=== PATIENT | female | born 1975 | race Caucasian/White ===

== ENCOUNTER → 2019-11-06 14:34 | Outpatient (REF) | payer OTHER, SELFPAY | LOC: ANHLAB 14:34 | PROVIDERS: PCP Nurse Practitioner Family; Visit Provider Nurse Practitioner | DX: D49.2 Neoplasm of unspecified behavior of bone, soft tissue, and skin (principal) | CPT/HCPCS: 88305 ==

== ENCOUNTER 2019-12-07 11:08 | Outpatient (CLI) | payer OTHER, SELFPAY ==
--- NOTE | ~2019-12-07 | MMUS_ITS ---
EXAMINATION: MM diagnostic mammo unilat LT, US breast LT complete HISTORY: Follow-up left breast mass TECHNIQUE: Additional 3-D tomosynthesis images of the left breast were performed and synthetic 2-D im ages were generated. CAD analysis was submitted and interpreted. High resolution left breast ultrasou nd was performed. COMPARISON: Comparison to multiple prior studies sequentially, with oldest reviewed study dated 01/11. FINDINGS: MAMMOGRAPHIC FINDINGS: The breasts are heterogenously dense, which may obscure small masses. There are multiple masses in th e left breast which are obscured by fibroglandular tissue. No suspicious calcifications or architectu ral distortion. ULTRASOUND: Multiple cysts of the left breast, largest at 1:00, 5 cm from the nipple measuring 1 cm and 2:00 near the nipple measuring 1.7 cm greatest dimension. No solid or identified to suggest malignancy. IMPRESSION: 1. Multiple left breast cysts corresponding to masses seen on mammogram. No evidence for malignancy. 2. Routine yearly screening mammogram and regular clinical breast examination are recommended. BI-RADS Category 2: Benign finding(s). Reviewed, dictated and finalized at location A. IMPRESSION: 1. Multiple left breast cysts corresponding to masses seen on mammogram. No tanja dence for malignancy. 2. Routine yearly screening mammogram and regular clinical breast examination a re recommended. BI-RADS Category 2: Benign finding(s).
== END 2019-12-07 11:09 | disposition home or self-care (01) ==
LOC: ANHIMG 11:12
PROVIDERS: PCP Nurse Practitioner Family; Visit Provider Obstetrics & Gynecology
DX: N60.02 Solitary cyst of left breast (principal)
CPT/HCPCS: 76641; 77065

== ENCOUNTER 2020-04-22 06:27 | Outpatient (CLI) | payer OTHER, SELFPAY ==
[2020-04-22 07:42] LABS: Hematocrit 42.9 % (37.0-47.0); Hemoglobin 14.5 g/dL (12.0-15.0); Mean Corpuscular HGB Conc 33.8 g/dl (32-36); Mean Corpuscular Hemoglobin 30.1 pg (26-34); Mean Platelet Volume 9.4 fl (7.4-10.4); Platelet Count Result 240 k/mm3 (150-375); Red Blood Count 4.82 M/mm3 (4.2-5.4); Red Cell Distribution Width 12.5 % (11.5-14.5); White Blood Count 5.5 K/mm3 (4.5-10.0)
[2020-04-22 07:53] LABS: Alanine Aminotransferase 17 U/L (4-35); Albumin Level 4.3 g/dL (3.5-5.1); Alkaline Phosphatase 59 U/L (38-126); Anion Gap 10.2 mmol/L (7-16); Aspartate Amino Transferase 21 U/L (14-36); Bilirubin,Total 0.5 mg/dL (0.2-1.3); Blood Urea Nitrogen 11 mg/dL (7-17); Calcium 8.7 mg/dL (8.4-10.2); Carbon Dioxide 27 mmol/L (22-30); Chloride 105 mmol/L (98-107); Cholesterol 162 mg/dL (0-200); Estimated Glomerular Filt Rate > 60; Glucose 90 mg/dL (65-105); HDL Direct 66 mg/dL; Potassium 4.2 mmol/L (3.4-5.0); Sodium 138 mmol/L (137-145); Triglycerides 103 mg/dL (<150)
[2020-04-22 08:04] LABS: LDL Cholesterol Direct 73 mg/dL
[2020-04-22 08:21] LABS: Vitamin D 25 Hydroxy 50.5 ng/mL
[2020-04-22 09:05] LABS: Folic Acid > 20.0 ng/mL (2.76->20)
== END 2020-04-22 06:28 | disposition home or self-care (01) ==
PROVIDERS: PCP Nurse Practitioner Family; Visit Provider Nurse Practitioner Family
DX: Z13.0 Encounter for screening for diseases of the blood and blood-forming organs and certain disorders involving the immune mechanism (principal); Z13.1 Encounter for screening for diabetes mellitus; Z13.29 Encounter for screening for other suspected endocrine disorder; Z13.220 Encounter for screening for lipoid disorders; Z13.9 Encounter for screening, unspecified
CPT/HCPCS: 36415; 80053; 80061; 82306; 82607; 82746; 84443; 85027

== ENCOUNTER 2020-07-09 08:13 | Emergency (ER) | payer OTHER, SELFPAY ==
--- NOTE | ~2020-07-09 | XR_ITS ---
EXAMINATION: XR chest 1V portable DATE: 07/09/2020 09:19 INDICATION: Cough. COVID 19 TECHNIQUE: frontal view of the chest was obtained. COMPARISON: Chest radiograph dated 11/17/2011 FINDINGS: The lungs remain clear with no focal airspace opacities, pulmonary edema, pleural effusion or pneumot horax. The cardiomediastinal silhouette is normal. Visualized bones and soft tissues are unremarkable . IMPRESSION: 1. No acute cardiopulmonary disease. Reviewed, dictated and finalized at location A.
--- NOTE | 2020-07-09 08:25 | ED.URI ---
HPI - URI/Sore Throat General Chief Complaint: Unspecified Stated Complaint: cough, covid + Time Seen by Provider: 07/09/20 08:22 History of Present Illness HPI Narrative: She was diagnosed with COVID-19 a few days ago and she is not feeling well. She has a severe cough, which is causing her to have pain in her chest. She has tried multiple OTC medications without relief. Only SOB when coughing. Previously had a fever, which has resolved. Poor appetite, no nausea. Related Data Allergies Allergy/AdvReac Type Severity Reaction Status Date / Time No Known Allergies Allergy Verified 07/09/20 08:44 Review of Systems Review of Systems: All systems reviewed & are unremarkable except as noted in HPI and below Constitutional: Constitutional: Reports fever(s) ENT: Denies sore throat Cardiovascular: Cardiovascular: Reports chest pain Respiratory: Respiratory: Reports cough and Reports dyspnea Gastrointestinal: Gastrointestinal: Denies abdominal pain and Denies nausea Musculoskeletal: Musculoskeletal: Reports myalgias Neurologic: Denies numbness and Denies weakness PMFSH Past Medical History Medical History Basal cell carcinoma of skin left collarbone Endometriosis determined by laparoscopy Melanoma in situ September 2017 Overweight (BMI 25.0-29.9) Surgical History Surgical History H/O bilateral salpingectomy History of cholecystectomy History of laparoscopy Family History Family History Father Heart disease Grandparent Cancer Social History Social History Smoking status: Never smoker Alcohol intake: current Gender identity (if verbalized by the patient): Female Exam Const: General: healthy appearing, no acute distress and alert Nutritional Appearance: well nourished Orientation/consciousness: patient oriented x3 HENMT: Head: normal to inspection Resp: Effort & Inspection: normal respiratory effort Skin: General skin exam: normal color Neuro: General: patient oriented x3 and moves all extremities Speech: normal speech Gait exam (Neuro): Normal gait present Extrem: General: normal to inspection Course Vital Signs Vital signs: Vital Signs Temperature 36.8 C 07/09/20 08:35 Pulse Rate 108 H 07/09/20 08:35 Respiratory Rate 20 07/09/20 08:35 Blood Pressure 101/68 07/09/20 08:35 Pulse Oximetry 99 07/09/20 08:35 Temperature 36.8 C 07/09/20 08:35 Pulse Rate 102 H 07/09/20 10:04 Respiratory Rate 20 07/09/20 10:04 Blood Pressure 98/57 L 07/09/20 10:04 Pulse Oximetry 100 07/09/20 10:04 MDM - URI/Sore Throat MDM Narrative Medical decision making narrative: She appears well with normal VS and known COVID. I will try to provide symptomatic relief. Discharge Plan Discharge Clinical Impression: COVID-19 Patient Disposition: Home, Self-Care Condition: Stable Instructions: COVID-19 (Coronavirus Disease 2019) (ED) Prescriptions: New albuterol sulfate 90 mcg/actuation HFA aerosol inhaler 2 puff inhalation QID PRN (Reason: shortness of breath or wheezing) Qty: 8.5 RF: 0 acetaminophen-codeine 120-12 mg/5 mL solution 15 ml PO Q4H PRN (Reason: cough) Qty: 473 RF: 0 Follow-up/Referrals: Rigoberto,Joann Pascal, [employer] [Primary Care Provider] -
[2020-07-09 08:35] VITALS: BP 101/68; PULSE 108; RESP 20; TEMP 36.8; O2SAT 99
[2020-07-09] MEDS: ALBUTEROL SULFATE (*SP) AEROSOL 1 PUFF 4 PUFF INHALATION (08:36)
--- NOTE | 2020-07-09 08:47 | PC.NURSE ---
RT at bedside for MDI instruct and dose.
[2020-07-09] MEDS: ACETAMINOPHEN/CODEINE ELIXIR (*CRX) 120-12 MG/5 ML UDC PO (08:53)
[2020-07-09 09:04] VITALS: O2SAT 100
[2020-07-09 10:04] VITALS: BP 98/57; PULSE 102; RESP 20; O2SAT 100
== END 2020-07-09 10:00 | disposition home or self-care (01) ==
PROVIDERS: Emergency Provider Emergency Medicine; PCP Nurse Practitioner Family
DX: U07.1 COVID-19 (principal)
CPT/HCPCS: 71045; 99283; A9270

== ENCOUNTER 2020-07-14 10:02 | Emergency (ER) | payer OTHER, SELFPAY ==
--- NOTE | ~2020-07-14 | XR_ITS ---
EXAMINATION: XR chest 1V portable DATE: 07/14/2020 12:42 INDICATION: Shortness of breath, cough and COVID+ TECHNIQUE: frontal view of the chest was obtained. COMPARISON: Chest radiograph dated 07/09/2020 FINDINGS: New mild opacities in the right lower and left mid to lower lung zones. No pleural effusion or pneumo thorax. The cardiomediastinal silhouette is normal. Visualized bones and soft tissues are unremarkabl e. IMPRESSION: 1. Mild opacities in the right lower and left mid to lower lung zones consistent with pneumonia with differential including mild pulmonary edema. Reviewed, dictated and finalized at location A. IMPRESSION: 1. Mild opacities in the right lower and left mid to lower lung zones consisten t with pneumonia with differential including mild pulmonary edema.
[2020-07-14 10:13] VITALS: BP 100/62; PULSE 92; RESP 16; TEMP 36.3; O2SAT 98
--- NOTE | 2020-07-14 12:21 | ED.GENADULT ---
HPI - General Adult General Chief complaint: Unspecified Stated complaint: covid Time Seen by Provider: 07/14/20 12:17 Source: patient Mode of arrival: ambulatory Limitations: no limitations History of Present Illness HPI narrative: 45 years old white female presents with dry cough, body aches, not eating enough, trouble sleeping since been diagnosed of Covid nineteen 1 week ago. Patient denying shortness of breath. Patient is concerned about dehydration. Related Data Allergies Allergy/AdvReac Type Severity Reaction Status Date / Time No Known Allergies Allergy Verified 07/14/20 10:15 Review of Systems Review of Systems: Narrative: CONSTITUTIONAL: Denies fever, chills, or sweats. EYES: Denies visual changes, redness, or discharge. ENT: Denies rhinorrhea, congestion, sore throat, or otalgia. CARDIOVASCULAR: Denies chest pain, palpitations, or edema. RESPIRATORY: Denies cough or dyspnea. GASTROINTESTINAL: Denies abdominal pain, nausea, vomiting, or diarrhea. GENITOURINARY: Denies dysuria or hematuria. SKIN: Denies rash or itching. MUSCULOSKELETAL: Denies back pain, joint pain, or myalgia. NEUROLOGIC: Denies headache, numbness, or weakness. PSYCHIATRIC: Denies anxiety or depression. PMFSH Past Medical History Medical History Basal cell carcinoma of skin left collarbone Endometriosis determined by laparoscopy Melanoma in situ September 2017 Overweight (BMI 25.0-29.9) Surgical History Surgical History H/O bilateral salpingectomy History of cholecystectomy History of laparoscopy Family History Family History Father Heart disease Grandparent Cancer Social History Social History Smoking status: Never smoker Alcohol intake: current Gender identity (if verbalized by the patient): Female Exam Narrative: Exam Narrative: General appearance: Well-developed, well-nourished Skin: Normal color Head: Normocephalic, nontraumatic Eyes: Clear conjunctiva Chest and respiratory: Airway patent, no respiratory distress, no accessory muscle use Heart: Regular rate/rhythm Abdomen: Soft, nontender, no organomegaly, quiet bowel sounds Neurologic: Alert and oriented ?3, Course Course Emergency Course: Improving Vital Signs Vital signs: Vital Signs Temperature 36.3 C L 07/14/20 10:13 Pulse Rate 92 07/14/20 10:13 Respiratory Rate 16 07/14/20 10:13 Blood Pressure 100/62 07/14/20 10:13 Pulse Oximetry 98 07/14/20 10:13 Temperature 36.3 C L 07/14/20 10:13 Pulse Rate 92 07/14/20 10:13 Respiratory Rate 16 07/14/20 10:13 Blood Pressure 100/62 07/14/20 10:13 Pulse Oximetry 98 07/14/20 10:13 Medical Decision Making MDM Narrative Medical decision making narrative: Patient presented with Covid symptoms Blood work-up showed leukopenia and hypokalemia consistent with Covid infection, Chest x-ray showed small bilateral basal infiltration which is high likely secondary to Covid infection. Patient oxygen saturation on room air is 98. Patient received 1 L of normal saline, Toradol 30 mg IV, Tylenol 650 orally. Patient feeling better, the plan to discharge, stay isolated, Start Z-Francis for possible superimposed bacterial infection. Differential Diagnosis Differential Diagnosis: Covid related symptoms, Covid pneumonia, electrolyte imbalance Vital Signs Vital Signs: Vital Signs Temperature 36.3 C L 07/14/20 10:13 Pulse Rate 92 07/14/20 10:13 Respiratory Rate 16 07/14/20 10:13 Blood Pressure 100/62 10/2
[2020-07-14] MEDS: SODIUM CHLORIDE 0.9% IV 1,000 ML 999 ML IV CONT (12:47)
[2020-07-14] MEDS: KETOROLAC 30 MG/ML VIAL (*BKC) IV PUSH (12:47)
[2020-07-14 13:01] LABS: Basophils Percent Auto 0.2 % (0.2-1.2); Eosinophils Percent Auto 0.5 % (0-4.4); Hematocrit 38.3 % (37.0-47.0); Hemoglobin 13.3 g/dL (12.0-15.0); Immature Granulocyte Absolute 0.02 K/mm3 (0.00-0.031); Immature Granulocyte Percent A 0.5 % (0-0.5); Lymphocytes Absolute Auto 1.07 K/mm3 (0.9-3.2); Lymphocytes Percent Auto 25.4 % (18.3-44.2); Mean Corpuscular HGB Conc 34.7 g/dl (32-36); Mean Corpuscular Hemoglobin 30.5 pg (26-34); Mean Corpuscular Volume 87.8 fl (80-100); Mean Platelet Volume 9.7 fl (7.4-10.4); Monocytes Absolute Auto 0.4 K/mm3 (0.1-0.6); Monocytes Percent Auto 8.8 % (2.6-8.5); Neutrophils Absolute Auto 2.7 K/mm3 (1.3-6.7); Neutrophils Percent Auto 64.6 % (45.5-73.1); Platelet Count Result 201 k/mm3 (150-375); Red Blood Count 4.36 M/mm3 (4.2-5.4); White Blood Count 4.2 K/mm3 (4.5-10.0)
[2020-07-14 13:13] LABS: Alanine Aminotransferase 30 U/L (4-35); Albumin Level 3.5 g/dL (3.5-5.1); Alkaline Phosphatase 109 U/L (38-126); Anion Gap 4 mmol/L (8-16); Aspartate Amino Transferase 43 U/L (14-36); Bilirubin,Total 0.6 mg/dL (0.2-1.3); Blood Urea Nitrogen 5 mg/dL (7-17); Calcium 8.4 mg/dL (8.4-10.2); Carbon Dioxide 34 mmol/L (22-30); Chloride 100 mmol/L (98-107); Estimated CRCL calculation 114 ml/min; Estimated Glomerular Filt Rate > 60; Glucose 92 mg/dL (65-105); Potassium 3.2 mmol/L (3.4-5.0); Sodium 138 mmol/L (137-145)
[2020-07-14 14:23] VITALS: BP 106/50; PULSE 73; RESP 20; O2SAT 100
== END 2020-07-14 14:25 | disposition home or self-care (01) ==
PROVIDERS: Emergency Provider Emergency Medicine; PCP Nurse Practitioner Family
DX: U07.1 COVID-19 (principal); E87.6 Hypokalemia; N80.9 Endometriosis, unspecified; Z85.820 Personal history of malignant melanoma of skin; E66.3 Overweight; Z68.25 Body mass index [BMI] 25.0-25.9, adult
CPT/HCPCS: 36415; 71045; 80053; 85025; 96361; 96374; 99284; J1885; J7030

== ENCOUNTER 2020-08-06 10:04 | Outpatient (CLI) | payer OTHER, SELFPAY ==
--- NOTE | ~2020-08-06 | XR_ITS ---
EXAMINATION: XR chest 2V DATE: 08/06/2020 10:56 INDICATION: COVID-19 pneumonia follow-up. TECHNIQUE: Frontal and lateral views of the chest were obtained. COMPARISON: Chest single view 07/14/2020 FINDINGS: The chest demonstrates clear lungs without pneumonia, pleural effusion, or pneumothorax. Th e heart size is normal. IMPRESSION: 1. No acute cardiopulmonary disease. Reviewed, dictated and finalized at location A. 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
== END 2020-08-06 10:05 | disposition home or self-care (01) ==
PROVIDERS: PCP Nurse Practitioner Family; Visit Provider Nurse Practitioner Family
DX: J18.9 Pneumonia, unspecified organism (principal)
CPT/HCPCS: 71046

== ENCOUNTER 2020-12-02 12:15 | Outpatient (CLI) | payer OTHER, SELFPAY | END 2020-12-02 12:16 | disposition home or self-care (01) | PROVIDERS: PCP Nurse Practitioner Family; Visit Provider Obstetrics & Gynecology | DX: N80.9 Endometriosis, unspecified (principal) | CPT/HCPCS: 36415; 86850; 86900; 86901 ==

== ENCOUNTER → 2020-12-07 00:25 | Outpatient (CLI) | payer OTHER, SELFPAY ==
[2020-12-07 19:13] LABS: SARS-CoV-2 RNA PCR Negative
== END ==
PROVIDERS: PCP Nurse Practitioner Family; Visit Provider Obstetrics & Gynecology
DX: Z01.812 Encounter for preprocedural laboratory examination (principal); Z20.822 Contact with and (suspected) exposure to COVID-19
CPT/HCPCS: C9803; U0003; U0005

== ENCOUNTER 2020-12-11 02:34 | Day surgery (SDC) | payer OTHER, SELFPAY ==
[2020-12-02 10:33] VITALS: BMI 26.3
[2020-12-11] VITALS (12 sets, daily range): BP systolic 103–126; BP diastolic 55–78; PULSE 60–82; RESP 14–20; TEMP 36.9; O2SAT 97–100; BMI 25.6
[2020-12-11] MEDS: KETOROLAC 15 MG/ML VIAL (*BKC) IV PUSH (10:30)
[2020-12-11] MEDS: ACETAMINOPHEN 500 MG TABLET 1000 MG PO (10:30)
--- NOTE | 2020-12-11 11:47 | WPDANESEPPF ---
Anes - Initial Pre Proc Eval Procedure: Operation Date: 12/11/20 12:00 Proposed Procedures p Diagnostic Laparoscopy, Hysteroscopy Dilatation And Curettage - Randy Hernández MD Date/Time: 12/11/20 11:47 Surgeon: Randy Hernández MD Pre Op Diagnosis: Pelvic Pain, Dismenorrhea, Patient Data Age: 45 Gender: F Height: 1.7 m Weight: 74.2 kg Last Vital Signs Temp 36.9 C 12/11/20 10:05 Pulse 82 12/11/20 10:05 Resp 16 12/11/20 10:05 BP 103/68 12/11/20 10:05 Pulse Ox 98 12/11/20 10:05 Allergies Allergy/AdvReac Type Severity Reaction Status Date / Time No Known Allergies Allergy Verified 12/11/20 10:16 Home Medications Medication Instructions Recorded Confirmed Type B Complex 1 tab-cap PO DAILY 12/02/20 12/11/20 History Dialyvite Vitamin D3 Max 1 tab-cap PO DAILY 12/02/20 12/11/20 History Evening [place] 1 tab-cap PO DAILY 12/02/20 12/11/20 History Fish Oil 1 tab-cap PO DAILY 12/02/20 12/11/20 History ascorbate calcium (vitamin C) 1 tab-cap BYMOUTH DAILY 12/02/20 12/11/20 History magnesium carbonate 1 tab-cap PO DAILY 12/02/20 12/11/20 History Patient hx anesthesia problems: post op nausea/vomiting Family hx anesthesia problems: none PMFSH Past Medical History Medical History Basal cell carcinoma of skin left collarbone Endometriosis determined by laparoscopy Melanoma in situ September 2017 Overweight (BMI 25.0-29.9) Surgical History Surgical History H/O bilateral salpingectomy History of cholecystectomy History of laparoscopy Family History Family History Father Heart disease Grandparent Cancer Social History Social History Smoking status: Never smoker Second hand tobacco smoke exposure: Yes Alcohol intake: current Substance use: never Substance use type: does not use Living arrangements: alone Gender identity (if verbalized by the patient): Female Spiritual care concerns: No Anes - Eval Final PreProcedure Day of Procedure 12/11/20 11:47 Patient weight: overweight Heart: regular rate and rhythm Lungs: clear to auscultation and normal air movement Airway: Mallampati scale class II Neurological: alert and oriented Last oral intake: >/= 8 hours ASA classification: II Emergent: no Anesthetic plan: proceed Anesthesia type and monitoring: general ETT and standard monitoring Informed Consent: The patient's anesthetic plan and its attendant risks and benefits were discussed with the patient/family/POA. Questions were solicited and answers provided to the satisfaction of the patient/family/POA.
[2020-12-11] MEDS: LACTATED RINGERS 1,000 ML 30 ML IV CONT ×2 (11:49→13:44)
[2020-12-11] MEDS: FAMOTIDINE 20 MG/2 ML VIAL IV PUSH (12:01)
[2020-12-11] MEDS: SCOPOLAMINE 1.5 MG PATCH TRANSDERM (12:01)
--- NOTE | 2020-12-11 12:15 | PM.IMHP ---
H&P: HPI History of Present Illness Date/Time: 12/11/20 12:15 45 y/o with a long history of endometriosis. She has had several laparoscopies. She has had a gradual worsening of dysmenorrhea and pelvic pain. She has no deep dyspareunia. She has had some dyschezia. Chief Complaint: Pain Review of Systems Review of Systems: All systems reviewed & are unremarkable except as noted in HPI and below PMFSH Past Medical History Medical History Basal cell carcinoma of skin left collarbone Endometriosis determined by laparoscopy Melanoma in situ September 2017 Overweight (BMI 25.0-29.9) Surgical History Surgical History H/O bilateral salpingectomy History of cholecystectomy History of laparoscopy Family History Family History Father Heart disease Grandparent Cancer Social History Social History Smoking status: Never smoker Second hand tobacco smoke exposure: Yes Alcohol intake: current Substance use: never Substance use type: does not use Living arrangements: alone Gender identity (if verbalized by the patient): Female Spiritual care concerns: No Meds Home Medications and Allergies Home Medications Medication Instructions Recorded Confirmed Type B Complex 1 tab-cap PO DAILY 12/02/20 12/11/20 History Dialyvite Vitamin D3 Max 1 tab-cap PO DAILY 12/02/20 12/11/20 History Evening [place] 1 tab-cap PO DAILY 12/02/20 12/11/20 History Fish Oil 1 tab-cap PO DAILY 12/02/20 12/11/20 History ascorbate calcium (vitamin C) 1 tab-cap BYMOUTH DAILY 12/02/20 12/11/20 History magnesium carbonate 1 tab-cap PO DAILY 12/02/20 12/11/20 History Allergies Allergy/AdvReac Type Severity Reaction Status Date / Time No Known Allergies Allergy Verified 12/11/20 10:16 Vital Signs Vital Signs - 24 hr 12/11/20 10:05 Temperature 36.9 C Pulse Rate 82 Respiratory Rate 16 Blood Pressure 103/68 Pulse Oximetry 98 Exam Const: Orientation/consciousness: patient oriented x3 Other: Well-developed, well-nourished female in no acute distress. Neck: Thyroid: thyroid normal Lymphatic: no lymphadenopathy noted (in neck, axilla or inguinal nodes) Resp: Effort & Inspection: normal respiratory effort Auscultation: clear to auscultation bilaterally Cardio: Rate: regular rate Rhythm: regular rhythm Heart sounds: S1 normal heart sound present and S2 normal heart sound present GI: Other: ABD: Soft, nontender, nondistended. No guarding or rebound tenderness. No hepatosplenomegaly. : General: Yes no CVA tenderness Other: External genitalia: normal female hair distribution, without lesion. Urethral meatus: no lesion, non prolapsed. Bladder: no mass, nontender Vagina: well-estrogenized, without lesion or discharge. No cystocele or rectocele. Cervix: no lesion or discharge. Uterus: small, anteverted, freely mobile, nontender Adnexa: no mass or tenderness. Anus/perineum: no lesions, nontender Back/Spine/Pelvis: Back: no CVA tenderness Skin: General skin exam: normal color and no rashes or lesions noted Neuro: General: patient oriented x3 Extrem: Other: Extremities: nontender with no edema Psych: Mental Status: mental status grossly normal Affect: normal affect Assessment and Plan Assessment and plan (1) Pelvic pain: Code(s): R10.2 - Pelvic and perineal pain Status: Acute Assessment and Plan: A: Chronic pelvic pain and dysmenorrhea, with history of endometriosis. P: I offered her a diagnostic laparoscopy with hysteroscopy and dilation and sharp curettage. She understands risks of surgery to include risks of anesthesia, risks of pain, infection, bleeding, blood products, thromboembolic phenomena and damage to adjacent structures such as bowel, bladder, uret
--- NOTE | 2020-12-11 12:20 | WPDHPUPDATE1 ---
History and Physical Update Update Date/Time: 12/11/20 12:20 History and Physical has been reviewed, including an updated exam of the patient. There are NO changes in the patient's condition. Risks, benefits, and alternatives have been discussed and questions answered. Patient agrees to proceed with procedure.
--- NOTE | 2020-12-11 13:19 | SUR.OPER ---
HYSTEROSCPY START TIME 1321
--- NOTE | 2020-12-11 13:40 | P.OP_ITS ---
Procedure Note - Detailed Date of procedure: 12/11/20 Pre-op diagnosis: Pelvic Pain, Dismenorrhea, Chronic pelvic pain Endometriosis Dysmenorrhea Post-op diagnosis: same Procedure performed: Diagnostic laparoscopy Biopsy of peritoneum of anterior cul-de-sac Cautery of endometriosis implants Incision and drainage of right ovarian cyst Hysteroscopy Dilation and sharp curettage Description of procedure: The patient was taken to the operating room where general endotracheal anesthesia was administered. She was prepared and draped in the usual sterile fashion in the dorsal lithotomy position. The bladder was drained with a red rubber catheter. A sterile speculum was inserted into the vagina and the anterior lip of the cervix was grasped with a single-toothed tenaculum. The acorn uterine manipulator was placed. The speculum was withdrawn. Gloves were changed and attention was turned to the abdomen. An infraumbilical skin incision was made with a scalpel. The abdomen was tented and a 5 millimeter bladeless trocar trocar was advanced under direct laparoscopic visualization. Pneumoperitoneum was administered using carbon dioxide gas. A survey of the pelvis and abdomen yielded the findings noted a sravani. A second skin incision was made in the midline above the symphysis pubis and a second 5 mm bladeless trochar was advanced under direct laparoscopic visualization. A punch biopsy from the peritoneum of the anterior cul-de-sac was collected. Needlepoint electrocautery was used to destroy the endometriosis implants noted in Findings. The right ovarian cyst was incised, but very little serous material drained. The pelvis was irrigated copiously with warmed normal saline. Hemostasis was excellent. The trocars were withdrawn and the gas was allowed to escape. The skin incisions were reapproximated using 4-0 Vicryl in interrupted subcuticular fashion. Dermaflex was applied externally. Attention was redirected to the vagina, and the acorn manipulator was withdrawn. Ten mL of 1% lidocaine was administered in a paracervical block. The cervix was then gently dilated using Hegar dilators until a 7 mm dilator could be passed. Hysteroscopy was performed using sterile saline as a distention medium. Findings are as noted above. Sharp curettage was then performed, and endometrial curettings were collected on a Telfa pad and passed off to be sent to pathology. Hemostasis was excellent. Sponge, lap, needle and instrument counts were correct. The patient was awakened and taken to the recovery room in stable condition. I was present and scrubbed through the entire procedure. Implants: None Anesthesia: GETA and local (paracervical block) Surgeon: Randy Hernández MD Estimated blood loss (mL): 10 Drains: No Packing: No Pathology: yes (peritoneal biopsy, endometrial curettings) Complications: None Condition: stable Disposition: PACU Findings: Gallbladder surgically absent. Liver grossly normal. Vermiform appendix unremarkable. Anterior cul de sac with endometriosis implant. Endometriosis implants also noted on serosal surface of left uterine cornu and just medial to left ovary. Fallopian tubes surgically absent. Left ovary unremarkable. Right ovary with a 2 cm likely corpus luteum cyst. Otherwise, uterus, ovaries and posterior cul-de-sac, bilateral round and uterosacral ligaments all unremarkable. Endometrial cavity with some thick tissue, possibly with a small polyp. Both tubal ostia seen. Otherwise, unremarkable endometrium.
[2020-12-11] MEDS: fentaNYL CITRATE INJ (*CRX) 100 MCG/2 ML VIAL 25 MCG IV PUSH ×4 (14:00→14:32)
[2020-12-11] MEDS: ONDANSETRON INJ 4 MG/2 ML VIAL IV PUSH (14:05)
[2020-12-11] MEDS: diphenhydrAMINE HCl INJ 50 MG/ML VIAL 25 MG IV PUSH (14:22)
== END 2020-12-11 16:15 | disposition home or self-care (01) ==
PROVIDERS: PCP Nurse Practitioner Family; Visit Provider Obstetrics & Gynecology
PROC: 0UDB8ZZ Extraction of Endometrium, Via Natural or Artificial Opening Endoscopic (ICD-10-PCS; CPT 58558; principal; 2020-12-11 12:00)
DX: R10.2 Pelvic and perineal pain (principal); N94.6 Dysmenorrhea, unspecified; G89.29 Other chronic pain; N80.3 Endometriosis of pelvic peritoneum; N83.201 Unspecified ovarian cyst, right side; N84.0 Polyp of corpus uteri
CPT/HCPCS: 58558; 58662; 88305; A9270; J0330; J1100; J1200; J1885; J2250; J2405; J2704; J2710; J3010; J7030; J7120

== ENCOUNTER 2021-02-11 13:32 | Emergency (ER) | payer OTHER, SELFPAY ==
[2021-02-11 13:41] VITALS: BP 107/70; PULSE 73; RESP 18; TEMP 36.7; O2SAT 100
--- NOTE | 2021-02-11 13:55 | ED.FEMALEGU ---
HPI - Female Genitourinary General Chief complaint: Urogenital-Female Stated complaint: UTI Source: patient and RN notes reviewed Mode of arrival: ambulatory Limitations: no limitations History of Present Illness HPI Narrative: This is a 45-year-old female who presented to urgent care today with complaints of urgency, frequency and abdominal pain that started yesterday. Patient does deny any hematuria or incontinence. Her UA did indicate leukocytes. She has been treated for urinary tract infection with macrobid 100 mg twice daily she will also get Diflucan for urinary tract infection. Patient notes that she gets urinary tract infections with antibiotic use. The patient denies SOB, CP, palpitation, extremity numbness, lightheadedness, dizziness, constipation, diarrhea, chills, or fever. MD elicited complaint: UTI and pelvic pain Related Data Home Medications Medication Instructions Recorded Confirmed B Complex 1 tab-cap PO DAILY 12/02/20 12/11/20 Dialyvite Vitamin D3 Max 1 tab-cap PO DAILY 12/02/20 12/11/20 Evening [place] 1 tab-cap PO DAILY 12/02/20 12/11/20 Fish Oil 1 tab-cap PO DAILY 12/02/20 12/11/20 ascorbate calcium (vitamin C) 1 tab-cap BYMOUTH DAILY 12/02/20 12/11/20 magnesium carbonate 1 tab-cap PO DAILY 12/02/20 12/11/20 Allergies Allergy/AdvReac Type Severity Reaction Status Date / Time No Known Allergies Allergy Verified 12/11/20 10:16 Review of Systems Review of Systems: Narrative: A 14 organ system Review of Systems was performed and pertinent positives included in the HPI, otherwise remaining ROS is negative. [facility] Past Medical History Medical History (Updated 02/11/21 @ 13:55 by KATHERIN Ambrosio-C) Basal cell carcinoma of skin left collarbone Endometriosis determined by laparoscopy Melanoma in situ September 2017 Overweight (BMI 25.0-29.9) Surgical History Surgical History H/O bilateral salpingectomy History of cholecystectomy History of laparoscopy Family History Family History Father Heart disease Grandparent Cancer Social History Social History Smoking status: Never smoker Second hand tobacco smoke exposure: Yes Alcohol intake: current Substance use: never Substance use type: does not use Gender identity (if verbalized by the patient): Female Spiritual care concerns: No Exam Narrative: Exam Narrative: GENERAL: This is a well-nourished, well-developed patient, in no apparent distress. HEAD: normocephalic, atraumatic. EYES: PERRL. Sclera clear/white. Vision is grossly intact. EARS: External ears normal, auditory canals clear and without drainage, TMs normal without perforation. Hearing grossly intact. NOSE: External nose normal with no obvious nasal discharge, nares without redness, no rhinorrhea. THROAT: Mucous membranes moist, posterior pharynx clear. NECK: Neck supple, non-tender without lymphadenopathy, masses or thyromegaly. CARDIOVASCULAR: Regular rate and rhythm without murmurs, gallops, or rubs. RESPIRATORY: Clear to auscultation. Breath sounds equal bilaterally. No wheezes, rales, or rhonchi. GASTROINTESTINAL: Abdomen soft, tender, nondistended. Bowel sounds are active. No hepato-splenomegaly, or palpable masses. No guarding. SKIN: warm, intact with no suspicious lesions or rash, good texture and turgor. NEURO: awake, alert, and oriented to person, place and time. There were no obvious focal neurologic abnormalities. Steady gait EXTREMITIES: Normal range of motion. No edema. No calf tenderness. Negative Homans sign bilaterally. BACK: Nontender without deformity or crepitance. No flank tenderness. Course Course Emergency Course: Patient received Macrobid 100 mg twice daily and Diflucan Vital Signs Vital signs: Vital Signs Temperature 98.0 F 02/11/21 13:41 Pulse Rate 73 05/25
== END 2021-02-11 13:56 | disposition home or self-care (01) ==
PROVIDERS: Emergency Provider Nurse Practitioner; PCP Nurse Practitioner Family
DX: N39.0 Urinary tract infection, site not specified (principal); N80.9 Endometriosis, unspecified; Z85.820 Personal history of malignant melanoma of skin; Z85.828 Personal history of other malignant neoplasm of skin
CPT/HCPCS: 81003; 87086; 99213; G0463

== ENCOUNTER 2021-04-02 08:12 | Outpatient (CLI) | payer OTHER, SELFPAY ==
--- NOTE | ~2021-04-02 | XR_ITS ---
XR chest 2V DATE: 04/02/2021 08:26 INDICATION: Chest pain, tightness, cough for one week TECHNIQUE: PA and lateral views COMPARISON: 08/06/2020 2 view chest FINDINGS: Normal heart size. No hilar or mediastinal enlargement. The lungs are clear of infiltrate o r consolidation. No pleural effusion or pulmonary vascular congestion or pneumothorax. IMPRESSION: Negative Reviewed, dictated and finalized at location B. IMPRESSION: Negative
== END 2021-04-02 08:13 | disposition home or self-care (01) ==
LOC: ANHIMG 08:13
PROVIDERS: PCP Nurse Practitioner Family; Visit Provider Nurse Practitioner Family
DX: R07.89 Other chest pain (principal)
CPT/HCPCS: 71046

== ENCOUNTER 2021-08-21 06:33 | Outpatient (CLI) | payer OTHER, SELFPAY ==
[2021-08-21 07:41] LABS: Basophils Percent Auto 0.5 % (0.2-1.2); Eosinophils Absolute Auto 0.1 K/mm3 (0-0.3); Eosinophils Percent Auto 1.1 % (0-4.4); Hematocrit 42.9 % (37.0-47.0); Hemoglobin 14.4 g/dL (12.0-15.0); Immature Granulocyte Absolute 0.02 K/mm3 (0.00-0.031); Immature Granulocyte Percent A 0.2 % (0-0.5); Lymphocytes Absolute Auto 1.74 K/mm3 (0.9-3.2); Lymphocytes Percent Auto 20.7 % (18.3-44.2); Mean Corpuscular HGB Conc 33.6 g/dl (32-36); Mean Corpuscular Hemoglobin 30.6 pg (26-34); Mean Corpuscular Volume 91.3 fl (80-100); Mean Platelet Volume 9.2 fl (7.4-10.4); Monocytes Absolute Auto 0.5 K/mm3 (0.1-0.6); Monocytes Percent Auto 5.6 % (2.6-8.5); Neutrophils Percent Auto 71.9 % (45.5-73.1); Platelet Count Result 245 k/mm3 (150-375); Red Cell Distribution Width 12.8 % (11.5-14.5); White Blood Count 8.4 K/mm3 (4.5-10.0)
[2021-08-21 08:16] LABS: Alanine Aminotransferase 17 U/L (4-35); Albumin Level 4.4 g/dL (3.5-5.1); Alkaline Phosphatase 71 U/L (38-126); Anion Gap 5 mmol/L (8-16); Aspartate Amino Transferase 24 U/L (14-36); Bilirubin,Total 0.3 mg/dL (0.2-1.3); Blood Urea Nitrogen 17 mg/dL (7-17); CRP < 0.5 mg/dL (<1.0); Carbon Dioxide 29 mmol/L (22-30); Chloride 102 mmol/L (98-107); Cholesterol 182 mg/dL (0-200); Estimated Glomerular Filt Rate > 60; Glucose 95 mg/dL (65-110); HDL Direct 72 mg/dL; Potassium 4.8 mmol/L (3.4-5.0); Sodium 136 mmol/L (137-145); Triglycerides 53 mg/dL (<150); Uric Acid 3.7 mg/dL (2.5-7.5)
[2021-08-21 08:25] LABS: LDL Cholesterol Direct 91 mg/dL
[2021-08-21 08:41] LABS: Hemoglobin A1C 4.6 % (<5.7)
[2021-08-21 09:02] LABS: Thyroid Stimulating Hormone Reflex 0.987 uIU/mL (0.465-4.68)
[2021-08-21 09:22] LABS: Erythrocyte Sedimentation Rate 12 mm/hr (0-20)
== END 2021-08-21 06:34 | disposition home or self-care (01) ==
PROVIDERS: PCP Nurse Practitioner Family; Visit Provider Nurse Practitioner Family
DX: M25.50 Pain in unspecified joint (principal); Z13.0 Encounter for screening for diseases of the blood and blood-forming organs and certain disorders involving the immune mechanism; Z13.220 Encounter for screening for lipoid disorders; Z13.1 Encounter for screening for diabetes mellitus; Z13.29 Encounter for screening for other suspected endocrine disorder
CPT/HCPCS: 36415; 80053; 80061; 83036; 84443; 84550; 85025; 85652; 86038; 86140

== ENCOUNTER 2021-11-04 09:34 | Outpatient (CLI) | payer OTHER, SELFPAY ==
--- NOTE | ~2021-11-04 | XR_ITS ---
XR knee LT 3V DATE: 11/04/2021 11:02 INDICATION: Left posterior knee pain; twisting injury in April 2021 TECHNIQUE: 3 views COMPARISON: None FINDINGS: No fracture or dislocation or joint effusion. No periosteal reaction or bone destruction, r adiopaque intra-articular loose body or chondrocalcinosis. Joint spaces are well preserved. IMPRESSION: Negative Reviewed, dictated and finalized at location B. 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
== END 2021-11-04 09:35 | disposition home or self-care (01) ==
PROVIDERS: PCP Nurse Practitioner Family; Visit Provider Nurse Practitioner Family
DX: M25.562 Pain in left knee (principal)
CPT/HCPCS: 73562

== ENCOUNTER 2022-01-05 09:46 | Outpatient (CLI) | payer OTHER, SELFPAY ==
--- NOTE | ~2022-01-05 | MR_ITS ---
EXAMINATION: MR thoracic spine wo con EXAM DATE: 01/05/2022 14:36 INDICATION: Paresthesia Of Upper Limb/T Spine Back Pain/Intervertebral D . TECHNIQUE: Multi-sequential, multiplanar MR images of the thoracic spine were obtained without contra st. Sagittal T1, T2, T2 fat saturation, axial T2 weighted images reviewed. Comparison is made to ramona or examination from 12/27/2018. FINDINGS: Mild thoracic disc disease and facet arthropathy. The central canal and neural foramen are widely patent. A few small scattered hemangiomata. No suspicious marrow signal abnormalities. The spi nal cord signal intensity and intrinsic morphology is normal. Paraspinal soft tissue is unremarkable . Difficult to appreciate any significant interval change compared to prior study. IMPRESSION: Mild thoracic spondylosis unchanged. Reviewed, dictated and finalized at location A.
--- NOTE | ~2022-01-05 | MR_ITS ---
EXAMINATION: MR lumbar spine wo con EXAM DATE: 01/05/2022 14:36 INDICATION: Paresthesia Of Upper Limb/T Spine Back Pain/Intervertebral D . TECHNIQUE: Multi-sequential, multiplanar MR images of the lumbar spine were obtained without contrast . Sagittal T1, T2, T2 fat saturation images. Axial T2 weighted images. Comparison is made to prior examination from 12/27/2018. FINDINGS: Mild disc disease L5-S1 with 3 mm retrolisthesis. 2 mm anterolisthesis L4 on L5. The verteb ral bodies are otherwise aligned. Mild disc disease at T11-12 The conus medullaris terminates at the L1-2 level and has normal signal intensity and morphology. There are no suspicious marrow signal abn ormalities. Paraspinal soft tissue is unremarkable. Level by level evaluation: L1-L2: Disc does not extend beyond the endplate margin. Facet arthropathy: Mild. Neural foraminal stenosis: No stenosis. Central canal stenosis: No stenosis. L2-L3: Disc does not extend beyond the endplate margin. Facet arthropathy: Mild. Neural foraminal stenosis: No stenosis. Central canal stenosis: No stenosis. L3-L4: Disc does not extend beyond the endplate margin. Facet arthropathy: Mild. Neural foraminal stenosis: No stenosis. Central canal stenosis: No stenosis. L4-L5: Disc does not extend beyond the endplate margin. Facet arthropathy: Moderate right, mild left. Neural foraminal stenosis: No stenosis. Central canal stenosis: No stenosis. L5-S1: Disc does not extend beyond the endplate margin. Facet arthropathy: Mild to moderate bilateral. Neural foraminal stenosis: Mild left. Central canal stenosis: No stenosis. Difficult appreciate any significant interval change compared to previous study. IMPRESSION: 1. Mild lumbar spondylosis. Reviewed, dictated and finalized at location A. IMPRESSION: 1. Mild lumbar spondylosis.
--- NOTE | ~2022-01-05 | MR_ITS ---
EXAMINATION: MR cervical spine wo con EXAM DATE: 01/05/2022 14:36 INDICATION: Paresthesia Of Upper Limb/T Spine Back Pain/Intervertebral D TECHNIQUE: Multi-sequential, multiplanar MR images of the cervical spine were obtained without contra st. Axial T2, axial T2 MERGE sequence. Sagittal T1, T2, T2 fat saturation images also obtained. Com parison is made to prior examination from 12/27/2018. FINDINGS: There is mild to moderate C4-5 disc disease, mild at C3-4 and C6-7. There is fusion of the C5-6 vertebral bodies. Again there is moderate reversal normal cervical lordosis. There are no suspi cious marrow signal abnormalities. The spinal cord signal intensity and intrinsic morphology is joel l. Cervicomedullary junction is normal in appearance. Paraspinal soft tissue is unremarkable. Level by level evaluation: C2-C3: Disc does not extend beyond the endplate margin. Uncovertebral joint arthropathy: None. Facet joint arthropathy: Moderate left, mild right. Neural foraminal stenosis: No stenosis. Central canal stenosis: No stenosis. C3-C4: There is a mild diffuse disc bulge. Uncovertebral joint arthropathy: Mild to moderate left, mild right. Facet joint arthropathy: Moderate left, mild right. Neural foraminal stenosis: Moderate left. Central canal stenosis: Minimal. C4-C5: There is a mild diffuse disc bulge. Uncovertebral joint arthropathy: Mild to moderate bilateral. Facet joint arthropathy: Mild to moderate bilateral. Neural foraminal stenosis: Moderate left, minimal right. Central canal stenosis: Mild. C5-C6: Osseous fusion of the disc space, could have bone graft. Uncovertebral joint arthropathy: Fused. Facet joint arthropathy: Mild bilateral. Neural foraminal stenosis: Mild left. Central canal stenosis: No stenosis. C6-C7: There is a mild diffuse disc bulge. Uncovertebral joint arthropathy: Mild to moderate left, mild right. Facet joint arthropathy: Mild bilateral. Neural foraminal stenosis: Mild to moderate left, mild right. Central canal stenosis: Mild. C7-T1: Disc does not extend beyond the endplate margin. Uncovertebral joint arthropathy: Mild bilateral. Facet joint arthropathy: None. Neural foraminal stenosis: No stenosis. Central canal stenosis: No stenosis. IMPRESSION: 1. Mild to moderate upper cervical spondylosis. 2. Chronic reversal of cervical lordosis. 3. C5-6 fusion. Reviewed, dictated and finalized at location A.
== END 2022-01-05 09:47 | disposition home or self-care (01) ==
PROVIDERS: PCP Nurse Practitioner Family; Visit Provider Nurse Practitioner Family
DX: M47.817 Spondylosis without myelopathy or radiculopathy, lumbosacral region (principal); R20.2 Paresthesia of skin; M48.07 Spinal stenosis, lumbosacral region; M47.815 Spondylosis without myelopathy or radiculopathy, thoracolumbar region; Z98.1 Arthrodesis status; M47.813 Spondylosis without myelopathy or radiculopathy, cervicothoracic region; M48.03 Spinal stenosis, cervicothoracic region
CPT/HCPCS: 72141; 72146; 72148

== ENCOUNTER 2022-03-09 08:49 | Outpatient (CLI) | payer OTHER, SELFPAY ==
--- NOTE | ~2022-03-09 | MM_ITS ---
EXAMINATION: MM screening belle BI w magaly HISTORY: Screening mammogram TECHNIQUE: Craniocaudal and mediolateral oblique 3-D tomosynthesis images were obtained and synthetic 2-D images were generated. CAD analysis was submitted and interpreted. COMPARISON: 12/07/2019 diagnostic left mammogram and complete left breast ultrasound 10/11/2019 bilateral screening mammogram 02/23/2017 diagnostic left mammogram and limited left breast ultrasound 07/09/2016 bilateral diagnostic mammography and complete bilateral breast ultrasound 07/02/2016 bilateral screening mammogram BREAST PARENCHYMAL COMPOSITION: The breasts are heterogeneously dense, which may obscure small masses . FINDINGS: There are some new and/or enlarged mammographic opacities bilaterally. Bilateral diagnostic mammography and bilateral breast ultrasound examination are recommended. IMPRESSION: 1. New or enlarged mammographic opacities are noted bilaterally. 2. Bilateral diagnostic mammography and breast ultrasound are recommended BI-RADS Category 0: Incomplete: Needs additional imaging evaluation. Reviewed, dictated and finalized at location A.
== END 2022-03-09 08:50 | disposition home or self-care (01) ==
LOC: ANHIMG 08:50
PROVIDERS: PCP Nurse Practitioner Family; Visit Provider Obstetrics & Gynecology
DX: Z12.31 Encounter for screening mammogram for malignant neoplasm of breast (principal); R92.8 Other abnormal and inconclusive findings on diagnostic imaging of breast
CPT/HCPCS: 77063; 77067

== ENCOUNTER 2022-04-09 13:33 | Outpatient (CLI) | payer OTHER, SELFPAY ==
--- NOTE | ~2022-04-09 | MMUS_ITS ---
EXAMINATION: MM diagnostic belle BI w magaly, US breast BI complete HISTORY: Follow-up bilateral breast asymmetries TECHNIQUE: Additional 3-D tomosynthesis images of the breasts were performed and synthetic 2-D images were generated. CAD analysis was submitted and interpreted. High resolution complete bilateral breas t ultrasound was performed. COMPARISON: Comparison to multiple prior studies sequentially, with oldest reviewed study dated 06/20. BREAST PARENCHYMAL COMPOSITION: The breasts are heterogenously dense, which may obscure small masses FINDINGS: MAMMOGRAPHIC FINDINGS: There are scattered bilateral breast asymmetries in both breasts. No suspicious calcifications or arc hitectural distortion. There is a mass in the mid outer aspect of the left breast, middle third. Ther e are masses in the upper outer quadrant of the right breast. ULTRASOUND: Complete bilateral US of all 4 quadrants of the breasts and retroareolar region was reviewed. Right b reast: There are multiple right breast cysts most of which are simple with a few complicated cyst thr oughout the right breast. No suspicious masses in the right breast to suggest malignancy. Left breast: There are multiple simple and complicated cyst of the left breast. There is a benign int ramammary lymph node at 9:00, 4 cm from the nipple measuring 9 mm. No suspicious masses in the left b reast to suggest malignancy. IMPRESSION: 1. No evidence for malignancy in either breast. Multiple bilateral benign breast masses, most of whic h are cysts. 2. Routine yearly screening mammogram and regular clinical breast examination are recommended. BI-RADS Category 2: Benign finding(s). Reviewed, dictated and finalized at location A. IMPRESSION: 1. No evidence for malignancy in either breast. Multiple bilateral benign breas t masses, most of which are cysts. 2. Routine yearly screening mammogram and regular clinical breast examination a re recommended. BI-RADS Category 2: Benign finding(s).
== END 2022-04-09 13:34 | disposition home or self-care (01) ==
PROVIDERS: PCP Nurse Practitioner Family; Visit Provider Obstetrics & Gynecology
DX: R92.8 Other abnormal and inconclusive findings on diagnostic imaging of breast (principal)
CPT/HCPCS: 76641; 77062; 77066; G0279

== ENCOUNTER 2022-08-05 13:36 | Outpatient (CLI) | payer OTHER, SELFPAY ==
--- NOTE | ~2022-08-05 | DEXA_ITS ---
Bone Density Report Name: MICHAEL AVERY Age: 47 Sex: Female Ethnicity: White Date of : 1975 Indication: height loss; cancer; Referring Provider: JOSE, ERNESTINA Pascal Study: Bone densitometry was performed. Exam Date: August 05, 2022 Accession number: [id number] Bone Density: Region BMD T-score Z-score Classification AP Spine(L1, L2, L3) 0.986 -0.3 0.3 Normal Femoral Neck (Left) 0.768 -0.7 -0.1 Normal Total Hip (Left) 0.833 -0.9 -0.5 Normal Femoral Neck (Right) 0.772 -0.7 -0.1 Normal Total Hip (Right) 0.857 -0.7 -0.3 Normal Total Hip Mean 0.845 -0.8 -0.4 Normal World Health Organization criteria for BMD impression classify patients as: Normal (T-score at or above -1.0), Osteopenia (T-score between -1.0 and -2.5), or Osteoporosis (T-score at or below -2.5). 10-year Fracture Risk: FRAX not reported because: Premenopausal woman All T-scores for Spine Total, Hip Total, Femoral Neck at or above -1.0 Clinical Information Provided by Patient: Has used the following medications: Vitamin D Has the following medical conditions: Cancer Patient maximum height was 69 No regular weight bearing exercise Onset of menses at age 11 Premenopausal Number of children 2 Impression: The patient's bone mass is within expected range for age, gender and ethnicity. Discussion: BONE DENSITY IS WITHIN EXPECTED LIMITS FOR AGE, SEX AND RACE. Bone density is within expected limits for age, sex and race at all sites measured. The patient should follow a healthful lifestyle (good nutrition with adequate calcium and vitamin D, and appropriate weight-bearing exercise). Follow-Up: Consider repeating this study in 5 years or sooner if there is some new clinical indication. Reported by: MALCOLM on 08/05/2022 2:08:00 PM. Reviewed, dictated and finalized at location AKisha AVALOS
== END 2022-08-05 13:37 | disposition home or self-care (01) ==
LOC: ANHIMG 13:39
PROVIDERS: PCP Nurse Practitioner Family; Visit Provider Nurse Practitioner Family
DX: Z78.0 Asymptomatic menopausal state (principal)
CPT/HCPCS: 77080

== ENCOUNTER 2022-08-26 10:09 | Emergency (ER) | payer OTHER, SELFPAY ==
[2022-08-26 10:18] VITALS: BP 114/79; PULSE 87; RESP 18; TEMP 36.2; O2SAT 99
--- NOTE | 2022-08-26 10:37 | ED.URI ---
HPI - URI/Sore Throat General Chief Complaint: Upper Respiratory Infection Stated Complaint: Cough,Headache,Fatigue Time Seen by Provider: 08/26/22 10:27 Source: patient Mode of arrival: ambulatory Limitations: no limitations History of Present Illness HPI Narrative: Patient presents today complaining of a 2 day history of cough, chills, fatigue, subjective fever, intermittent mild shortness of breath, and anterior rib pain due to cough. Negative home COVID test. Denies history of asthma or COPD. She has been taking Mucinex DM, zinc, vitamin-C, sinus medication with some relief. Cough is worse at night and has not helped with medication. Related Data Allergies Allergy/AdvReac Type Severity Reaction Status Date / Time No Known Allergies Allergy Verified 08/26/22 10:24 Review of Systems Review of Systems: CONSTITUTIONAL: Denies body aches, or sweats.+ subjective fever, chills, fatigue EYES: Denies visual changes, redness, or discharge. ENT: Denies rhinorrhea, congestion, sore throat, or otalgia. CARDIOVASCULAR: Denies chest pain, palpitations, or edema. RESPIRATORY: + cough, shortness of breath, rib pain GASTROINTESTINAL: Denies abdominal pain, nausea, vomiting, or diarrhea. GENITOURINARY: Denies dysuria or hematuria. SKIN: Denies rash, itching, or wounds. MUSCULOSKELETAL: Denies back pain, joint pain, or myalgia. NEUROLOGIC: Denies headache, numbness, tingling, or weakness. PSYCH: Denies depression or anxiety. [facility] Past Medical History Medical History Basal cell carcinoma of skin left collarbone Endometriosis determined by laparoscopy Melanoma in situ September 2017 Overweight (BMI 25.0-29.9) Surgical History Surgical History H/O bilateral salpingectomy History of cholecystectomy History of laparoscopy Family History Family History Father Heart disease Grandparent Cancer Social History Social History Smoking status: Unknown if ever smoked Second hand tobacco smoke exposure: Yes Alcohol intake: current Substance use: never Substance use type: does not use Gender identity (if verbalized by the patient): Female Spiritual care concerns: No Comments At time of signature, I have reviewed and agree with nursing past medical, surgical, social and family history unless otherwise noted. Please see nursing chart for further information. There is no relevant family history pertinent to the presenting complaint Exam Narrative: GENERAL: Mildly ill-appearing, well-nourished, and in no acute distress. HEAD: Normocephalic, atraumatic. EYES: EOMI. No redness or drainage. Conjunctivae normal. ENT: Mucous membranes pink and moist. Nares clear. No rhinorrhea. TMs normal bilaterally. Throat normal. Uvula midline. NECK: Normal AROM. Supple. No lymphadenopathy. CHEST: No respiratory distress. Clear to auscultation. HEART: Regular rate and rhythm. No murmur appreciated. Normal peripheral pulses. EXTREMITIES: Normal range of motion. No edema. SKIN: Warm, dry, no rash. Capillary refill normal. Normal skin turgor. NEURO: No focal deficits. Alert and oriented x3. Gait steady. PSYCH: Normal affect. No signs of depression or anxiety. Course Course Level of Care: Express Care Visit Vital Signs Vital signs: Vital Signs Temperature 97.1 F L 08/26/22 10:18 Pulse Rate 87 08/26/22 10:18 Respiratory Rate 18 08/26/22 10:18 Blood Pressure 114/79 08/26/22 10:18 Pulse Oximetry 99 08/26/22 10:18 Oxygen Delivery Room Air 08/26/22 10:18 Temperature 97.1 F L 08/26/22 10:18 Pulse Rate 87 08/26/22 10:18 Respiratory Rate 18 08/26/22 10:18 Blood Pressure 114/79 08/26/22 10:18 Pulse Oximetry 99 08/26/22 10:18 Oxygen Delivery Room Air
== END 2022-08-26 10:44 | disposition home or self-care (01) ==
PROVIDERS: Emergency Provider Nurse Practitioner; PCP Nurse Practitioner Family
DX: J06.9 Acute upper respiratory infection, unspecified (principal); N80.9 Endometriosis, unspecified; Z86.006 Personal history of melanoma in-situ; Z85.828 Personal history of other malignant neoplasm of skin
CPT/HCPCS: 99213; G0463

== ENCOUNTER 2023-03-22 13:45 | Emergency (ER) | payer OTHER, SELFPAY ==
--- NOTE | ~2023-03-22 | XR_ITS ---
EXAMINATION: XR chest 2V DATE: 03/22/2023 14:38 INDICATION: Cough. Shortness of breath. TECHNIQUE: Frontal and lateral views of the chest were obtained. COMPARISON: Chest 2 views 04/02/2021 FINDINGS: The chest demonstrates clear lungs without pneumonia, pleural effusion, or pneumothorax. Th e heart size is normal. IMPRESSION: 1. No acute cardiopulmonary disease. Reviewed, dictated and finalized at location A.
--- NOTE | 2023-03-22 13:47 | ED.URI ---
HPI - URI/Sore Throat General Chief Complaint: Upper Respiratory Infection Stated Complaint: Headache,Congestion,Sore Throat,Chest Pain Time Seen by Provider: 03/22/23 14:17 Source: patient, RN notes reviewed and old records reviewed Mode of arrival: ambulatory Limitations: no limitations History of Present Illness HPI Narrative: 47-year-old female presents to the [facility] with complaints of sore throat, chest congestion, cough and headache that started last Wednesday, 6 days ago. Has tried multiple [id number] products with no relief. Reports a history of pneumonia and bronchitis. Denies smoking. Related Data Allergies Allergy/AdvReac Type Severity Reaction Status Date / Time No Known Allergies Allergy Verified 03/22/23 13:47 Review of Systems Review of Systems: All systems reviewed & are unremarkable except as noted in HPI and below Constitutional: Constitutional: Reports no additional constitutional complaints Eyes: Eyes: Reports no additional eye complaints ENT: Reports as per HPI Cardiovascular: Cardiovascular: Reports no additional cardiovascular complaints, Denies chest pain and Denies dyspnea Respiratory: Respiratory: Reports as per HPI, Denies chest congestion, Reports cough and Denies dyspnea Gastrointestinal: Gastrointestinal: Reports no additional gastrointestinal complaints, Denies abdominal pain, Denies nausea and Denies vomiting Musculoskeletal: Musculoskeletal: Reports no additional musculoskeletal complaints Integumentary/Breasts: Skin/Breast: Reports system reviewed and no additional complaints, except as docu Neurologic: Reports system reviewed and no additional complaints, except as documented Psychiatric: Psychiatric: Reports no additional psychiatric complaints Allergic/Immunologic: Allergic/Immunologic: Reports no additional allergic/immunologic complaints PMFSH Past Medical History Medical History Basal cell carcinoma of skin left collarbone Endometriosis determined by laparoscopy Melanoma in situ September 2017 Overweight (BMI 25.0-29.9) Surgical History Surgical History H/O bilateral salpingectomy History of cholecystectomy History of laparoscopy Family History Family History Father Heart disease Grandparent Cancer Social History Social History Smoking status: Unknown if ever smoked Second hand tobacco smoke exposure: Yes Alcohol intake: current Substance use: never Substance use type: does not use Living arrangements: alone Gender identity (if verbalized by the patient): Female Spiritual care concerns: No Comments At the time of my signature, I reviewed and agree with the nursing past medical, surgical, social, and family history. There is no relevant family history pertinent to the patient complaint. Exam Const: General: cooperative, healthy appearing, comfortable, no acute distress, well developed, alert and well nourished Nutritional Appearance: well nourished Orientation/consciousness: patient oriented x3 Limitations: no limitations HENMT: Head: normal to inspection Ears: hearing grossly normal bilaterally, external ears normal, TM's normal bilaterally and EAC's normal Face/Nose/Sinus: Normal external nose present, Normal nares present, Normal nasal mucous membranes and turbinates present and normal facial exam Face and sinus: normal facial exam Mouth: Yes Normal oral and palatal mucosa present, Yes lip normal and Yes moist mucous membranes Throat: posterior oropharynx normal, uvula midline and postnasal drainage Eyes: General: appearance normal, both eyes and all related structures Alignment and Position: alignment normal Periorbital: periorbital findings normal Pupils: Equal, round and reactive pupils present EOM: EOMs i
[2023-03-22 13:57] VITALS: BP 106/83; PULSE 74; RESP 16; TEMP 36.7; O2SAT 100
== END 2023-03-22 14:58 | disposition home or self-care (01) ==
PROVIDERS: Emergency Provider Nurse Practitioner; PCP Nurse Practitioner Family
DX: J20.9 Acute bronchitis, unspecified (principal); N80.9 Endometriosis, unspecified; Z86.006 Personal history of melanoma in-situ; Z85.828 Personal history of other malignant neoplasm of skin
CPT/HCPCS: 71046; 87081; 87880; 99213; G0463

== ENCOUNTER 2023-03-30 13:33 | Emergency (ER) | payer OTHER, SELFPAY ==
[2023-03-30 13:44] VITALS: BP 115/71; PULSE 76; RESP 14; TEMP 36.6; O2SAT 100
--- NOTE | 2023-03-30 13:51 | ED.URI ---
HPI - URI/Sore Throat General Chief Complaint: Upper Respiratory Infection Stated Complaint: sorethroat Time Seen by Provider: 03/30/23 13:52 Source: patient Mode of arrival: ambulatory Limitations: no limitations History of Present Illness HPI Narrative: 47-year-old female presents with complaint of Continued cough, hoarse voice since last week. reports she was seen [facility] and given prednisone, albuterol inhaler. States she continues to feel like she has crud in her chest and still has no voice. Patient states now she is having a sore throat, thick feeling and mouth and White on her tongue. Patient states inside of her mouth feels sore. Is concerned that she has thrush. States she has never had before so she is unsure where she got it. Afebrile. No chest pain or shortness of breath. All systems reviewed and negative except as noted above. Related Data Allergies Allergy/AdvReac Type Severity Reaction Status Date / Time No Known Allergies Allergy Verified 03/22/23 13:47 Review of Systems Review of Systems: CONSTITUTIONAL: Denies fever, chills, or sweats. EYES: Denies visual changes, redness, or discharge. ENT: Denies rhinorrhea, congestion, s or otalgia. Reports hoarse voice. Reports sore throat, mouth soreness, white spots the tongue. CARDIOVASCULAR: Denies chest pain, palpitations, or edema. RESPIRATORY: Reports cough. Denies dyspnea. GASTROINTESTINAL: Denies abdominal pain, nausea, vomiting, or diarrhea. GENITOURINARY: Denies dysuria or hematuria. SKIN: Denies rash or itching. MUSCULOSKELETAL: Denies back pain, joint pain, or myalgia. NEUROLOGIC: Denies headache, numbness, or weakness. PSYCHIATRIC: Denies anxiety or depression. All other systems reviewed are negative, except as documented in HPI. [facility] Past Medical History Medical History Basal cell carcinoma of skin left collarbone Endometriosis determined by laparoscopy Melanoma in situ September 2017 Overweight (BMI 25.0-29.9) Surgical History Surgical History H/O bilateral salpingectomy History of cholecystectomy History of laparoscopy Family History Family History Father Heart disease Grandparent Cancer Social History Social History Smoking status: Unknown if ever smoked Second hand tobacco smoke exposure: Yes Alcohol intake: current Substance use: never Substance use type: does not use Living arrangements: alone Gender identity (if verbalized by the patient): Female Spiritual care concerns: No Comments At time of signature, agree with nursing past medical, surgical, social and family history. There is no relevant family history pertinent to the presenting complaint. Exam Narrative: GENERAL: This is a well-nourished, well-developed patient, in no apparent distress. HEAD: normocephalic, atraumatic. EYES: PERRL. Sclera clear/white. Vision is grossly intact. EARS: External ears normal, auditory canals clear and without drainage, TMs normal without perforation. Hearing grossly intact. NOSE: External nose normal with no obvious nasal discharge, nares without redness, no rhinorrhea. THROAT: Mucous membranes moist, erythema to posterior pharynx, white plaques to tongue NECK: Neck supple, non-tender without lymphadenopathy, masses or thyromegaly. CARDIOVASCULAR: Regular rate and rhythm without murmurs, gallops, or rubs. RESPIRATORY: Clear to auscultation. Breath sounds equal bilaterally. No wheezes, rales, or rhonchi. SKIN: warm, Dry, intact with no suspicious lesions or rash, good texture and turgor. NEURO: awake, alert, and oriented to person, place and time. There were no obvious focal neurologic abnormalities. EXTREMITIES: No joint tenderness, effusion, or edema noted. Course Course
== END 2023-03-30 14:08 | disposition home or self-care (01) ==
PROVIDERS: Emergency Provider Nurse Practitioner Family; PCP Nurse Practitioner Family
DX: J02.9 Acute pharyngitis, unspecified (principal); B37.0 Candidal stomatitis; Z85.820 Personal history of malignant melanoma of skin
CPT/HCPCS: 99213; G0463

== ENCOUNTER 2023-09-15 05:31 | Outpatient (CLI) | payer OTHER, SELFPAY ==
[2023-09-15 08:05] LABS: Basophils Percent Auto 0.7 % (0.2-1.2); Eosinophils Absolute Auto 0.1 K/mm3 (0-0.3); Eosinophils Percent Auto 0.9 % (0-4.4); Hemoglobin 13.7 g/dL (12.0-15.0); Immature Granulocyte Absolute 0.01 K/mm3 (0.00-0.031); Immature Granulocyte Percent A 0.2 % (0-0.5); Lymphocytes Absolute Auto 1.48 K/mm3 (0.9-3.2); Lymphocytes Percent Auto 27.1 % (18.3-44.2); Mean Corpuscular HGB Conc 32.6 g/dl (32-36); Mean Corpuscular Hemoglobin 30.2 pg (26-34); Mean Corpuscular Volume 92.7 fl (80-100); Monocytes Absolute Auto 0.3 K/mm3 (0.1-0.6); Monocytes Percent Auto 4.8 % (2.6-8.5); Neutrophils Absolute Auto 3.6 K/mm3 (1.3-6.7); Neutrophils Percent Auto 66.3 % (45.5-73.1); Platelet Count Result 274 k/mm3 (150-375); Red Blood Count 4.53 M/mm3 (4.2-5.4); Red Cell Distribution Width 12.9 % (11.5-14.5); White Blood Count 5.5 K/mm3 (4.5-10.0)
[2023-09-15 08:21] LABS: Alanine Aminotransferase 20 U/L (6-35); Alkaline Phosphatase 69 U/L (38-126); Anion Gap 7 mmol/L (8-16); Aspartate Amino Transferase 23 U/L (14-36); Bilirubin,Total 0.7 mg/dL (0.2-1.3); Blood Urea Nitrogen 10 mg/dL (7-17); Calcium 8.9 mg/dL (8.4-10.2); Carbon Dioxide 26 mmol/L (22-30); Chloride 105 mmol/L (98-107); Cholesterol 156 mg/dL (0-200); Estimated Glomerular Filt Rate > 60; Glucose 90 mg/dL (65-110); HDL Direct 56 mg/dL; Potassium 3.9 mmol/L (3.4-5.0); Sodium 138 mmol/L (137-145); Triglycerides 112 mg/dL (<150)
[2023-09-15 08:31] LABS: LDL Cholesterol Direct 72 mg/dL
[2023-09-15 09:22] LABS: Hemoglobin A1C 4.4 % (<5.7)
[2023-09-15 09:25] LABS: Free T4 Free Thyroxine 1.16 ng/mL (0.78-2.19)
== END 2023-09-15 05:32 | disposition home or self-care (01) ==
LOC: ANHLAB 05:36
PROVIDERS: PCP Nurse Practitioner Family; Visit Provider Nurse Practitioner Family
DX: Z13.0 Encounter for screening for diseases of the blood and blood-forming organs and certain disorders involving the immune mechanism (principal); Z13.1 Encounter for screening for diabetes mellitus; Z13.29 Encounter for screening for other suspected endocrine disorder; Z13.220 Encounter for screening for lipoid disorders
CPT/HCPCS: 36415; 80053; 80061; 83036; 84439; 84443; 85025

== ENCOUNTER 2023-09-21 12:26 | Outpatient (NON) | payer OTHER, SELFPAY | END 2023-09-21 12:27 | disposition home or self-care (01) | PROVIDERS: PCP Nurse Practitioner Family; Visit Provider Nurse Practitioner | DX: D48.5 Neoplasm of uncertain behavior of skin (principal) | CPT/HCPCS: 88305 ==

== ENCOUNTER 2023-10-23 08:02 | Emergency (ER) | payer OTHER, SELFPAY ==
[2023-10-23 08:13] VITALS: BP 103/68; PULSE 114; RESP 18; TEMP 36.6; O2SAT 100
[2023-10-23 08:14] VITALS: BP 103/68; PULSE 114; RESP 18; TEMP 36.6; O2SAT 100
--- NOTE | 2023-10-23 08:41 | ED.URI ---
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 She has tried ibuprofen, allergies Sinus medicine, and a few Tessalon Perles with some mild relief. Patient works at [employer]. Related Data Allergies Allergy/AdvReac Type Severity Reaction Status Date / Time No Known Allergies Allergy Verified 10/23/23 08:13 Review of Systems Review of Systems: CONSTITUTIONAL: + body aches, subjective fever, sweats EYES: Denies visual changes, redness, or discharge. ENT: Denies rhinorrhea, sore throat, or otalgia.+ congestion CARDIOVASCULAR: Denies chest pain, palpitations, or edema. RESPIRATORY: + cough, shortness of breath with exertion. GASTROINTESTINAL: Denies abdominal pain, nausea, vomiting, or diarrhea. GENITOURINARY: Denies dysuria or hematuria. SKIN: Denies rash, itching, or wounds. MUSCULOSKELETAL: Denies back pain, joint pain, or myalgia. NEUROLOGIC: Denies headache, numbness, tingling, or weakness. PSYCH: Denies depression or anxiety. [facility] Past Medical History Medical History Basal cell carcinoma of skin left collarbone Endometriosis determined by laparoscopy Melanoma in situ September 2017 Overweight (BMI 25.0-29.9) Surgical History Surgical History H/O bilateral salpingectomy History of cholecystectomy History of laparoscopy Family History Family History Father Heart disease Grandparent Cancer Social History Social History Smoking status: Unknown if ever smoked Second hand tobacco smoke exposure: Yes Alcohol intake: current Substance use: never Substance use type: does not use Living arrangements: alone Gender identity (if verbalized by the patient): Female Spiritual care concerns: No Comments At time of signature, I have reviewed and agree with nursing past medical, surgical, social and family history unless otherwise noted. Please see nursing chart for further information. There is no relevant family history pertinent to the presenting complaint Exam Narrative: GENERAL: Mildly ill-appearing, well-nourished, and in no acute distress. HEAD: Normocephalic, atraumatic. EYES: EOMI. No redness or drainage. Conjunctivae normal. ENT: Mucous membranes pink and moist. Nares congested with rhinorrhea rhinorrhea. TMs normal bilaterally. Throat normal. Uvula midline. NECK: Normal AROM. Supple. No lymphadenopathy. CHEST: No respiratory distress. Clear to auscultation. HEART: Regular rate and rhythm. No murmur appreciated. EXTREMITIES: Normal range of motion. No edema. SKIN: Warm, dry, no rash. Capillary refill normal. Normal skin turgor. NEURO: No focal deficits. Alert and oriented x3. Gait steady. PSYCH: Normal affect. No signs of depression or anxiety. Course Course Level of Care: Express Care Visit Vital Signs Vital signs: Vital Signs Temperature 97.9 F 10/23/23 08:13 Pulse Rate 114 H 10/23/23 08:13 Respiratory Rate 18 10/23/23 08:13 Blood Pressure 103/68 10/23/23 08:13 Pulse Oximetry 100 10/23/23 08:13 Oxygen Delivery Room Air 10/23/23 08:13 Temperature 97.9 F 10/23/23 08:14 Pulse Rate 114 H 10/23/23 08:14 Respiratory Rate 18 10/23/23 08:14 Blood Pressure 103/68 10/23/23 08:14 Pulse Oximetry 100 10/23/23 08:14 Oxygen Delivery Room Air 10/23/23 08:14 Reviewed MDM - URI/Sor
== END 2023-10-23 08:50 | disposition home or self-care (01) ==
PROVIDERS: Emergency Provider Nurse Practitioner; PCP Nurse Practitioner Family
DX: U07.1 COVID-19 (principal); N80.9 Endometriosis, unspecified; Z85.828 Personal history of other malignant neoplasm of skin; Z85.820 Personal history of malignant melanoma of skin
CPT/HCPCS: 87426; 87804; 99213; G0463

== ENCOUNTER 2023-12-11 13:18 | Emergency (ER) | payer OTHER, SELFPAY ==
--- NOTE | ~2023-12-11 | CT_ITS ---
EXAMINATION: CT abdomen pelvis wo con DATE: 12/11/2023 16:22 INDICATION: lower abd/lower back pain, r/o stone TECHNIQUE: Computed tomography (CT) of the abdomen and pelvis was performed without intravenous contr ast. Automated exposure control and iterative reconstruction technique were employed. The dose-length product was 907.81 mGy-cm. COMPARISON: 08/21/2019. FINDINGS: Lower thorax: Unremarkable Liver: Normal. Biliary/Gallbladder: Gallbladder is normal. No bile duct dilation. Pancreas: No mass or duct dilation. Spleen: Normal. Adrenals:No mass. Kidneys: No suspicious mass, obstructing stone, or hydronephrosis. GI tract: No small or large bowel dilation. Normal appendix. Mesentery/Peritoneum: No ascites, mass, or free air. Retroperitoneum: No mass. Pelvis: Pelvic organs are within normal limits. 3.1 cm simple appearing left ovarian cyst for which n o additional imaging is recommended. Soft Tissues: Soft tissues and body wall unremarkable. Bones: No acute osseous finding. Mild and moderate degrees of lumbar degenerative disc disease. Mode rate facet arthropathy. No severe central canal or neural foraminal narrowing. IMPRESSION: No acute abdominopelvic process detected. Reviewed, dictated and finalized at location K.
[2023-12-11 13:32] VITALS: BP 118/69; PULSE 80; RESP 16; TEMP 36.3; O2SAT 98
[2023-12-11] MEDS: methocarbamoL 500 MG TABLET 1000 MG PO (15:48)
[2023-12-11] MEDS: ACETAMINOPHEN 500 MG TABLET 1000 MG PO (15:48)
[2023-12-11] MEDS: methylPREDNISolone SOD SUCC 125 MG VIAL IM (15:49)
--- NOTE | 2023-12-11 16:13 | ED.BACK ---
HPI - Back Pain/Injury General Chief Complaint: Back Pain/Injury Stated Complaint: back pain Time Seen by Provider: 12/11/23 14:47 Source: patient Mode of arrival: ambulatory Limitations: no limitations History of Present Illness HPI Narrative: patient is a 48-year-old female who presents the ED with report of lower back pain. Patient reports she tweaked her back this morning getting out of bed. Denies any significant injury, just feels as though she twisted wrong. Has history of chronic back issues use a reports having similar pain in the past. She complains of pain throughout her lower back since then, occasionally radiates down her left lower leg. She tried taking ibuprofen 800 mg and taking a warm bath but denied improvement. Pain worse with any movement, unable to find comfortable position. does also complain of some pain throughout her lower abdomen which she feels is from using her abdominal muscles more to compensate for her back. denies history of kidney stones. Denies nausea, vomiting, bowel or bladder incontinence, dysuria, hematuria, numbness, saddle anesthesia, weakness, fevers. Related Data Allergies Allergy/AdvReac Type Severity Reaction Status Date / Time No Known Allergies Allergy Verified 10/23/23 08:13 Review of Systems Review of Systems: CONSTITUTIONAL: Denies fever, chills, or sweats. GASTROINTESTINAL: See HPI. GENITOURINARY: Denies dysuria or hematuria. MUSCULOSKELETAL: See HPI. NEUROLOGIC: Denies headache, dizziness, numbness, or weakness. All systems reviewed & are unremarkable except as noted in HPI and below PMFSH Past Medical History Medical History Basal cell carcinoma of skin left collarbone Endometriosis determined by laparoscopy Melanoma in situ September 2017 Overweight (BMI 25.0-29.9) Surgical History Surgical History H/O bilateral salpingectomy History of cholecystectomy History of laparoscopy Family History Family History Father Heart disease Grandparent Cancer Social History Social History Smoking status: Unknown if ever smoked Second hand tobacco smoke exposure: Yes Alcohol intake: current Substance use: never Substance use type: does not use Living arrangements: alone Gender identity (if verbalized by the patient): Female Spiritual care concerns: No Exam Narrative: GENERAL: Uncomfortable appearing, well-nourished, non-toxic, in no acute distress. HEAD: Normocephalic, atraumatic. RESPIRATORY: Airway patent, respirations nonlabored. CARDIOVASCULAR: Regular rate and rhythm ABDOMINAL: Soft, no significant tenderness to lower abdomen, nondistended. Normoactive BS. Mild +CVA tenderness to percussion on L. MUSCULOSKELETAL: Moves all extremities. No gross deformities. No significant reproducible tenderness throughout midline lumbar spine, no palpable deformities or bony step offs. Sensation intact. SKIN: Warm, dry, normal color. NEURO: A&O X3. Speech clear. PSYCHIATRIC: Appropriate mood and affect. Normal interaction. Course Vital Signs Vital signs: Vital Signs Temperature 97.3 F L 12/11/23 13:32 Pulse Rate 80 12/11/23 13:32 Respiratory Rate 16 12/11/23 13:32 Blood Pressure 118/69 12/11/23 13:32 Pulse Oximetry 98 12/11/23 13:32 Oxygen Delivery Room Air 12/11/23 13:32 Temperature 97.3 F L 12/11/23 13:32 Pulse Rate 80 12/11/23 13:32 Respiratory Rate 16 12/11/23 13:32 Blood Pressure 118/69 12/11/23 13:32 Pulse Oximetry 98 12/11/23 13:32 Oxygen Delivery Room Air 12/11/23 13:32 MDM - Back Pain/Injury MDM Narrative Medical decision making narrative: Patient presented to ED with lower back pain that began this morning. Patient did report some lower
[2023-12-11] MEDS: traMADol HCL (*CRX) 50 MG TABLET PO (17:24)
[2023-12-11] MEDS: KETOROLAC (*BKC) 60 MG/2 ML VIAL IM (17:24)
[2023-12-11 18:08] VITALS: BP 115/75; PULSE 75; RESP 18; TEMP 36.4; O2SAT 100
== END 2023-12-11 18:09 | disposition home or self-care (01) ==
PROVIDERS: Emergency Provider Physician Assistant; PCP Nurse Practitioner Family
DX: S39.012A Strain of muscle, fascia and tendon of lower back, initial encounter (principal); E66.3 Overweight; Z90.49 Acquired absence of other specified parts of digestive tract; Z90.79 Acquired absence of other genital organ(s); Z86.006 Personal history of melanoma in-situ; Z85.828 Personal history of other malignant neoplasm of skin; X50.1XXA Overexertion from prolonged static or awkward postures, initial encounter
CPT/HCPCS: 74176; 96372; 99284; A9270; J1885; J2930

== ENCOUNTER 2024-05-01 10:28 | Outpatient (CLI) | payer OTHER, SELFPAY ==
--- NOTE | ~2024-05-01 | MMUS_ITS ---
EXAMINATION: MM diagnostic belle BI w magaly, US breast RT limited HISTORY: Palpable right abnormality. TECHNIQUE: Additional 3-D tomosynthesis images of the breasts were performed and synthetic 2-D images were generated. CAD analysis was submitted and interpreted. High resolution Limited right breast ult rasound was performed. COMPARISON: Comparison to multiple prior studies sequentially, with oldest reviewed study dated 06/21. BREAST PARENCHYMAL COMPOSITION: Not dense: There are scattered areas of fibroglandular density. FINDINGS: MAMMOGRAPHIC FINDINGS: There is a partially obscured mass in the upper outer quadrant of the right breast posterior third. T here is a stable mass centrally in the left breast, previously characterized as a cyst. No new masses , calcifications or architectural distortion. ULTRASOUND: Limited right breast ultrasound: At 10:00, 6 cm from the nipple there is a 1.2 cm cyst corresponding to the mass seen on mammography. No suspicious sonographic abnormalities to suggest malignancy. IMPRESSION: 1. No evidence for malignancy in either breast. Benign findings. 2. Routine yearly screening mammogram and regular clinical breast examination are recommended. BI-RADS Category 2: Benign finding(s). Reviewed, dictated and finalized at location B. IMPRESSION: 1. No evidence for malignancy in either breast. Benign findings. 2. Routine yearly screening mammogram and regular clinical breast examination a re recommended. BI-RADS Category 2: Benign finding(s).
== END 2024-05-01 10:29 | disposition home or self-care (01) ==
PROVIDERS: PCP Nurse Practitioner Family; Visit Provider Obstetrics & Gynecology
DX: N64.59 Other signs and symptoms in breast (principal)
CPT/HCPCS: 76642; 77062; 77066; G0279

== ENCOUNTER 2024-09-05 06:49 | Outpatient (CLI) | payer OTHER, SELFPAY ==
[2024-09-05 08:05] LABS: Hematocrit 41.9 % (37.0-47.0); Hemoglobin 13.8 g/dL (12.0-15.0); Mean Corpuscular HGB Conc 32.9 g/dl (32-36); Mean Corpuscular Hemoglobin 29.9 pg (26-34); Mean Corpuscular Volume 90.9 fl (80-100); Mean Platelet Volume 9.2 fl (7.4-10.4); Platelet Count Result 276 k/mm3 (150-375); Red Blood Count 4.61 M/mm3 (4.2-5.4); Red Cell Distribution Width 12.4 % (11.5-14.5)
[2024-09-05 08:10] LABS: Hemoglobin A1C 4.7 % (<5.7)
[2024-09-05 08:11] LABS: Alanine Aminotransferase 28 U/L (6-35); Albumin Level 4.1 g/dL (3.5-5.1); Alkaline Phosphatase 61 U/L (38-126); Anion Gap 4 mmol/L (4-12); Aspartate Amino Transferase 30 U/L (14-36); Bilirubin,Total 0.6 mg/dL (0.2-1.3); Blood Urea Nitrogen 10 mg/dL (7-17); Calcium 8.8 mg/dL (8.4-10.2); Carbon Dioxide 29 mmol/L (22-30); Chloride 104 mmol/L (98-107); Cholesterol 189 mg/dL (0-200); Estimated Glomerular Filt Rate > 60; Glucose 90 mg/dL (65-110); HDL Direct 78 mg/dL; Potassium 4.1 mmol/L (3.4-5.0); Sodium 137 mmol/L (137-145); Triglycerides 85 mg/dL (<150)
[2024-09-05 08:22] LABS: LDL Cholesterol Direct 82 mg/dL
[2024-09-05 09:01] LABS: Free T4 Free Thyroxine 0.97 ng/dL (0.78-2.19)
== END 2024-09-05 06:50 | disposition home or self-care (01) ==
LOC: ANHLAB 06:52
PROVIDERS: PCP Nurse Practitioner Family; Visit Provider Nurse Practitioner Family
DX: Z13.0 Encounter for screening for diseases of the blood and blood-forming organs and certain disorders involving the immune mechanism (principal); Z13.1 Encounter for screening for diabetes mellitus; Z13.29 Encounter for screening for other suspected endocrine disorder; Z13.220 Encounter for screening for lipoid disorders
CPT/HCPCS: 36415; 80053; 80061; 83036; 84439; 84480; 85027

== ENCOUNTER 2025-01-03 00:43 | Day surgery (SDC) | payer OTHER, SELFPAY ==
[2024-12-27 11:35] VITALS: BMI 26.4
--- OUTSIDE RECORDS SUMMARY | 2025-01-03 00:45 | XMS_ITS | Encounter Summary ---
Author Organization [facility] Address [address] [facility] Attn: Epic Prelude ADT HENRIK QUINONES [id number] Care Team Providers Care Licensed Funeral Director And Embalmer Name Role Phone Joann FranklinP Primary Care Provider [phone] Encounter Details Date Type Department Care Team (Late st Contact Info) Description 09/06/1997 Outpatient Historical Conversion, History Christiano Morrison Social History Tobacco Use Types Packs/Day Years Used Date Smoking Tobacco: Never Assessed Comments Unknown Sex and Gender Information Value Date Recorded Sex Assigned at Not on file Legal Sex Female 3:48 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
--- OUTSIDE RECORDS SUMMARY | 2025-01-03 00:45 | XMS_ITS | Clinical Summary ---
Author Organization [facility] Address [address] [place] [id number] Care Team Providers Care Buffet Manager Name Role Phone Joann Franklin [facility] Primary Care Provider + Social History Tobacco Use Types Packs/Day Years Used Date Smoking Tobacco: Never Assessed Comments Unknown Sex and Gender Information Value Date Recorded Sex Assigned at Not on file Legal Sex Female 8:32 PM CDT Gender Identity Not on file Sexual Orientation Not on file Plan of Treatment Health Maintenance Due Date Last Done Comments Cervical Cancer Screening Pa p Smear (Age 30 to 64) Every 3 Years 1974 Colorectal Cancer Screening Colonoscopy (10 Years) 1974 Annual Physical 1977 Hepatitis C 1992 DTaP, Tdap and Td Vaccines ( 1 - Tdap) 1993 Hepatitis B Vaccines (1 of 3 - 19+ 3-dose series) 1993 Cervical Cancer Screening Pa p with HPV Testing (Age 30 to 64) Every 5 Years 2004 Cervical Cancer Screening with HPV 2004 Mammogram Screening 2014 COVID-19 Vaccine (2023-2 5 season) 2024 Zoster Vaccines (1 of 2) 2024 Meningococcal B Vaccine Aged Out No l onger eligible based on patient's age to complete this topic Meningococcal Vaccine Aged Out No char michelle eligible based on patient's age to complete this topic Pneumococcal Vaccine: Pediat rics (0 to 5 Years) and At-Risk Patients (6 to 49 Years) Aged Out No longer eligible b ased on patient's age to complete this topic RSV Immunizations Under 20 Months Aged Out No longer eligible based on patient's age to complete this topic Care Teams Buffet Manager Relationship Specialty Start Date End Date Joann Franklin, [facility] [address] [phone] PCP - General NURSE PRACTITIONER 01/07/22
--- OUTSIDE RECORDS SUMMARY | 2025-01-03 00:46 | XMS_ITS | Data Portability ---
Author Organization [facility] [employer], Main Office Address [address] [place] [address] Care Team Providers Care Diabetologist Name Role Phone ERNESTINA GARCIA Primary Care Provider ERNESTINA GARCIA Referring Provider [phone] Assessment No assessment recorded. Plan of Treatment Reminders Order Date Submit Date Provider Last Modified By Organization Details Last Modified Time Details Appointments None recorded. Lab rapid strep group A, throat 2022 023 [email or web address] [facility], [address] [place] [address], [phone], 3 16:25:34 lipid panel, serum [address] (Lab), [address] [place] [address], [address], 3 08:00:00 TSH, serum, reflex free T4 [address] (Lab), [address] [place] [address], [phone], 3 08:00:00 HbA1c (hemoglobi n A1c), blood [address] (Lab), [address] [place] [address], [address], 3 07:59:59 CMP, serum or plasma [address] (Lab), [address] [place] [address] [address], [place], [address], 3 07:59:59 CBC w/ auto diff 2022 023 [facility] (Lab), [address] [place] [address], [place], [address], 3 07:59:59 Referral None recorded. Procedures None recorded. Surgeries None recorded. Imaging MAMMO, screening, digital, bilateral 2022 023 [email or web address] [facility], [address], [address] [address], [place], [address], 3 09:04:09 Medication Orders None recorded. Patient TargetsNo targets recorded. Patient Instructions Encounter Date Encounter Id Patient Instructions Last Modified By Organization Details Last Modified Time 09/02/2023 [id number] Fu annually afte r 09/02/24 for wellness. 09/02/23 pt aware of Dalton departure. [email or web address] Not available 09/02/2023 16:26:11 Reason for Referral None Reported. Results Created Date Observation Date Name Description Value Unit Range Abnormal Flag Note LastModifiedBy Organization Detail LastModifiedTime 09/02/2009/02/2023 rapid strep group A, throa t STREP A negati ve Not Available [address], [place], [address], 09/02/2023 15:44:26 04/02/20 21 04/02/2021 XR, chest , 2 view No observ ation record ed. [id number] [facility] (Imaging) [address] [place] [address], [address], 11/18/2022 08:30:58 11/04/19 22 11/04/2021 XR, knee, 3 view No observ ation record ed. MIGRATION.[id number] [address] [address], [place], [address], 11/18/2022 08:30:58 01/06/20 22 01/05/2022 MRI, lumba r spine , w/o contr ast No observ ation record ed. MIGRATION.[id number] [place] [address], [place], [address], 11/18/2022 08:30:58 01/06/20 22 01/05/2022 MRI, cervi david spine , w/o contr ast No observ ation record ed. MIGRATION.[id number] [place] [address] [facility], [place], [address], 11/18/2022 08:30:58 01/06/20 22 01/05/2022 MRI, thora cic spine , w/o contr ast No observ ation record ed. MIGRATION.[address] [place] [address], [place], [address], 11/18/2022 08:30:58 03/09/20 22 03/09/2022 MAMMO , scree lorena, bilat eral No observ ation record ed. MIGRATION.[id number] [place] [address], [place], [address], 11/18/2022 08:30:58 04/09/20 22 04/09/2022 MAMMO , diagn ostic , bilat eral No observ ation record ed. MIGRATION.[address] [place] [address] [facility] [facility], [place], [address], 11/18/2022 08:30:58 08/06/20 22 08/05/2022 bone densi ty No observ ation record ed. MIGRATION.[address] [place] [address], [place], [address], 11/18/2022 08:30:58 08/26/20 22 08/05/2022 bone densi ty No observ ation record ed. MIGRATION.[address] [place] [address] ([facility]) [address] [place] [address] [address] [facility], [place], [address], 11/18/2022 08:30:58 03/22/20 23 03/22/2023 XR, chest No observ ation record ed. [email or web address] [facility] [address], [place], [address], 03/23/2023 12:55:53 Result Notes None recorded. Problems Name Problem SNOMED Code Status Onset Date Resolution Date Notes Provider Name and Address Organization Details Recorded Time Abdominal bloating 904134794 Active Not Available [facility] 3 08:24:25 Herpes labialis 6410795 Active 2020 Not Available [facility] 3 08:24:25 Anxiety state 830017002 Active Not Available [facility] 3 08:24:25 Lumbar sprain 261716102 Active Not Available [facility] 3 08:24:25 Abdominal pain 15698658 Active Not Available [facility] 3 08:24:25 Herpesvir us infection 48607523 Active Not Available [facility] 3 08:24:25 Gastroeso phageal reflux disease 277179433 Active Not Available [facility] 3 08:24:25 Chronic constipat ion 777474532 Active Not Available [facility] 3 08:24:25 Lumbar spondylos is 340218176 Active 2021 Not Available [facility] 3 08:24:25 Basal cell carcinoma of skin 622670920 Active 2018 collarbone Not Available [facility] 3 08:24:26 Weight increased 935264244 Active Not Available [facility] 3 08:24:26 Thoracic back pain 274979040 Active Not Available [facility] 3 08:24:26 Low back pain 788476745 Active 2017 Not Available [facility] 3 08:24:26 Cervical spondylos is 820945083 Active 2021 Not Available [facility] 3 08:24:26 Thoracic spondylos is 236895748 Active 2021 Not Available [facility] 3 08:24:26 Shoulder pain 94919694 Active Not Available [facility] 3 08:24:26 Anxiety 86257114 Active Not Available [facility] 3 08:24:26 Shooting pain 66749824 Active Not Available [facility] 3 08:24:27 Upper respirato ry infection 86657000 Active Not Available [facility] 3 08:24:27 Urinary tract infectiou s disease 91728790 Active Not Available [facility] 3 08:24:27 Neck pain 82433752 Active Not Available [facility] 3 08:24:27 Fatigue 74997946 Active Not Available [facility] 3 08:24:27 Pharyngit is 717415493 Active 2022 Ernestina Garcia NP [address] [facility], [facility] [address], [place], [address] , [facility] [employer] [facility] 3 15:44:15 Problem Notes None recorded. Procedures Surgical History Date Name Laterality Status Provider Name and Address Organization Details Recorded Time 08/05/20 22 Most Recent Bone Density completed Not Available [facility] 11/18/2022 08:19:30 09/20/19 14 fallopian tube excision completed Not Available [facility] 11/18/2022 08:19:31 09/20/19 03 cholecystectomy completed Not Available [facility] 11/18/2022 08:19:31 excision of lymph node completed Not Available [facility] 11/18/2022 08:19:31 Imaging Results Imaging Date Name Status LastModified by [facility] Details LastModified Time 01/05/2022 MRI, lumbar spine, w/o contrast completed [id number] [address] [place] [address], [address], 11/18/2022 08:30:58 01/05/2022 MRI, cervical spine, w/o contrast completed MIGRATION.[id number] [address], [place], [address], 11/18/2022 08:30:58 01/05/2022 MRI, thoracic spine, w/o contrast completed MIGRATION.[id number] [address] [place] [address] [address], [place], [address], 11/18/2022 08:30:58 04/02/2021 XR, chest, 2 view completed MIGRATION.[id number] [address] [place] [address] (Imaging) [address] [place] [address] [address], [place], [address], 11/18/2022 08:30:58 11/04/2021 XR, knee, 3 view completed MIGRATION.[id number] [address] [place] [address] [address], [place], [address], 11/18/2022 08:30:58 08/05/2022 bone density completed MIGRATION.[id number] [place] [address] (Imaging) [address] [place] [address] [address] [facility], [place], [address], 11/18/2022 08:30:58 08/05/2022 bone density completed MIGRATION.[id number] [place] [address] [address], [place], [address], 11/18/2022 08:30:58 03/09/2022 MAMMO, screening, bilateral completed MIGRATION.[id number] [address] [place] [address] [address], [place], [address], 11/18/2022 08:30:58 04/09/2022 MAMMO, diagnostic, bilateral completed MIGRATION.[id number] [address] [place] [address] [address], [place], [address], 11/18/2022 08:30:58 03/22/2023 XR, chest completed [email or web address] [address], [place], [address], 03/23/2023 12:55:53 Procedure Notes None recorded. Medical Equipment None Reported. Allergies No known drug allergies Medications Name Sig Start Date Stop Date Status Note LastModified by Organization Details LastModified Time celecoxib 200 mg capsule Take 1 capsule every day by oral route. 05/05 completed Not Available Not Available Not Available cyclobenzap rine 10 mg tablet Take 1 tablet 3 times a day by oral route as needed for 30 days. 09/02 completed Not Available Not Available Not Available amoxicillin 500 mg capsule active Not Available Not Available Not Available promethazin e-DM 6.25 mg-15 mg/5 mL oral syrup 11/24 completed Not Available Not Available Not Available nystatin 100,000 unit/mL oral suspension SHAKE LIQUID WELL AND SWISH AROUND MOUTH AND KEEP IN LONG POSSIBLE BEFORE SWALLOWIN G FOUR TIMES DAILY FOR 14 DAYS. 09/02 completed Not Available Not Available Not Available azithromyci n 250 mg tablet TK 2 TS PO NOW THEN 1 T PO DAYS 2-5 11/07 completed Not Available Not Available Not Available ibuprofen 800 mg tablet TAKE 1 TABLET BY MOUTH TWICE DAILY NEEDED 09/02 completed Not Available Not Available Not Available fluconazole 150 mg tablet TAKE 1 TABLET BY MOUTH 1 TIME 09/02 completed Not Available Not Available Not Available benzonatate 200 mg capsule TAKE 1 CAPSULE BY MOUTH THREE TIMES DAILY NEEDED FOR COUGH active Not Available Not Available No t Available acetaminoph en 120 mg-codeine 12 mg/5 mL oral solution TK 15 ML PO Q 4 H PRF COUGH 03/25 completed Not Available Not Available Not Available valacyclovi r 1 gram tablet TAKE 2 TABLETS EVERY 12 HOURS FOR 1 DAY AT THE [facility] OF [place] active Not Available Not Available No t Available hydrocodone 5 mg-acetamin ophen 325 mg tablet TAKE 1 TABLET BY MOUTH EVERY 6 HOURS NEEDED 09/02 completed Not Available Not Available Not Available Celestone Soluspan 6 mg/mL suspension for injection active [facility]#: 0517- 0720- 01 Not Available Not Available Not Available meloxicam 15 mg tablet Take 1 tablet every day by oral route in the morning for 30 days. active Not Available Not Available No t Available metronidazo le 0.75 % (37.5 mg/5 gram) vaginal gel active Not Available Not Available Not Available prednisone 20 mg tablet Take 1 tablet every day by oral route for 5 days. active Not Available Not Available No t Available Tubersol 5 tub. unit/0.1 mL intradermal injection solution Inject 0.1 mL every day by intraderm al route for 1 day. 04/18 completed Not Available Not Available Not Available Depo-Medrol 20 mg/mL suspension for injection active [facility]#: 0009- 0280- 02 Not Available Not Available Not Available penicillin V potassium 500 mg tablet active Not Available Not Available Not Available Nexium 40 mg capsule,del ayed release TK 1 C PO EVERY MORNING active Not Available Not Available No t Available acetaminoph en 300 mg-codeine 30 mg tablet active Not Available Not Available Not Available peg-electro lyte solution 420 gram oral solution MIX AND DRINK UTD 08/27 completed Not Available Not Available Not Available tramadol 50 mg tablet TK 1 T PO Q 6 TO 8 H PRN P active Not Available Not Available No t Available amoxicillin 500 mg tablet TAKE 1 TABLET BY MOUTH EVERY 12 HOURS FOR 10 DAYS 09/02 completed Not Available Not Available Not Available alprazolam 0.25 mg tablet TK 1 T PO TID PRN active Not Available Not Available No t Available benzonatate 100 mg capsule TAKE 1 CAPSULE BY MOUTH THREE TIMES DAILY NEEDED FOR COUGH 09/02 completed Not Available Not Available Not Available cephalexin 500 mg capsule TK ONE C PO Q 6 H 05/06 completed Not Available Not Available Not Available misoprostol 200 mcg tablet TK ONE T PO TID WITH DICLOFENA C 05/06 completed Not Available Not Available Not Available prednisone 50 mg tablet TAKE 1 TABLET BY MOUTH DAILY 09/02 completed Not Available Not Available Not Available dexamethaso ne 0.75 mg tablet active Not Available Not Available Not Available omeprazole 20 mg capsule,del ayed release Take 1 capsule every day by oral route as directed for 90 days. active Not Available Not Available No t Available diclofenac sodium 75 mg tablet,felicitas yed release Take 1 tablet twice a day by oral route as needed. active Not Available Not Available No t Available acyclovir 200 mg capsule TAKE ONE CAPSULE BY MOUTH FIVE TIMES A DAY DIRECTED FOR FIVE DAYS active Not Available Not Available No t Available diclofenac sodium 50 mg tablet,felicitas yed release TAKE ONE T PO TID WITH FOOD 05/06 completed Not Available Not Available Not Available levofloxaci n 500 mg tablet active Not Available Not Available Not Available methylpredn isolone 4 mg tablets in a dose pack USE DIRECTED 05/05 completed Not Available Not Available Not Available albuterol sulfate HFA 90 mcg/actuati on aerosol inhaler INHALE 2 PUFFS FOUR TIMES A DAY NEEDED FOR SHORTNESS OF BREATH OR WHEEZING 09/02 completed Not Available Not Available Not Available ipratropium bromide 42 mcg (0.06 %) nasal spray 09/02 completed Not Available Not Available Not Available amoxicillin 875 mg-potassiu m clavulanate 125 mg tablet TK 1 T PO Q 12 H FOR 10 DAYS 04/18 completed Not Available Not Available Not Available amoxicillin 500 mg-potassiu m clavulanate 125 mg tablet Take 1 tablet every 12 hours by oral route for 10 days. active Not Available Not Available No t Available Cryselle (28) 0.3 mg-30 mcg tablet TAKE 1 TABLET BY MOUTH EVERY DAY active Not Available Not Available No t Available escitalopra m 10 mg tablet TAKE 1 TABLET DAILY active Not Available Not Available No t Available cyclobenzap rine 5 mg tablet Take 1 tablet every day by oral route at bedtime for 30 days. active Not Available Not Available No t Available Symbicort 160 mcg-4.5 mcg/actuati on HFA aerosol inhaler Inhale 2 puffs twice a day by inhalatio n route. 09/02 completed Not Available Not Available Not Available Flector 1.3 % transdermal 12 hour patch Apply 1 patch twice a day by transderm al route. 04/12 completed Not Available Not Available Not Available Vicodin 5 mg-300 mg tablet TK ONE T PO Q 4 TO 6 H PRN FOR PAIN active Not Available Not Available No t Available Belviq 10 mg tablet TK ONE T PO BID active Not Available Not Available No t Available potassium chloride ER 20 mEq tablet,exte nded release 09/02 completed Not Available Not Available Not Available Paxlovid 300 mg (150 mg x 2)-100 mg tablets in a dose pack TAKE 2 NIRMATREL VIR TABLETS AND 1 RITONAVIR TABLET TOGETHER BY MOUTH TWICE DAILY FOR 5 DAYS DIRECTED active Not Available Not Available No t Available Vitals Date Recorded Body mass index (BMI) Body height Oxygen saturation Oxygen saturation in Arterial blood by Pulse oximetry Heart rate Body temperature Body weight Systolic blood pressure Diastolic blood pressure Provider Name and Address Organization Details Last Updated DateTime 1 27 kg/m2 172.09 cm 97 % 97 % 75 /min 97.5 [degF] 52187.2 6 g 112 mm[Hg] 66 mm[Hg] Not Available [facility] 3 08:23:39 Date Recorded Body mass index (BMI) Body height Oxygen saturation Oxygen saturation in Arterial blood by Pulse oximetry Heart rate Body temperature Body weight Systolic blood pressure Diastolic blood pressure Provider Name and Address Organization Details Last Updated DateTime 2 26.7 kg/m2 172.09 cm 98 % 98 % 76 /min 97.9 [degF] 59331.0 7 g 102 mm[Hg] 76 mm[Hg] Not Available [facility] 3 08:23:39 Date Recorded Body weight Body mass index (BMI) Body height Body temperature Heart rate Respiratory rate Oxygen saturation Oxygen saturation in Arterial blood by Pulse oximetry Pain severity - 0-10 verbal numeric rating [Score] - Reported Systolic blood pressure Diastolic blood pressure Provider Name and Address Organization Details Last Updated DateTime 3 23517.2 3 g 27.1 kg/m2 170.18 cm 96.5 [degF] 78 /min 20 /min 97 % 97 % 0 118 mm[Hg] 76 mm[Hg] Ernestina Rowan RN [place] [employer] 3 15:20:47 Social History Question Answer Notes LastModified by Organizat ion Details LastModified Time Tobacco Smoking Status Never Smoker Not Available [facility] 11/18/2022 08:19:25 Do You Have An Advance Directive? No MIGRATION.[id number] Information not available 11/18/2022 What Is Your Level Of Alcohol Consumption? Occasional MIGRATION.75900 47837 Information not available 11/18/2022 Is Blood Transfusion Acceptable In An Emergency? Yes Information not available 09/02/2023 What Is Your Level Of Caffeine Consumption? Moderate MIGRATION.01159 25694 Information not available 11/18/2022 What Is Your Code Status? Full Code Information not available 09/02/2023 In The 14 Days Before Symptom Onset, Have You Had Close Contact With A Laboratory-confi rmed COVID-19 While That Case Was Ill? No MIGRATION.29221 65619 Information not available 11/18/2022 In The 14 Days Before Symptom Onset, Have You Had Close Contact With A Person Who Is Under Investigation For COVID-19 While That Person Was Ill? No MIGRATION.39129 61210 Information not available 11/18/2022 What Type Of Diet Are You Following? 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 No MIGRATION.47817 71977 Information not available 11/18/2022 Do You Use Insect Repellent Routinely? Yes MIGRATION.71964 17085 Information not available 11/18/2022 Where Do You Live? [place] MIGRATION.19038 60401 Information not available 11/18/2022 Do You Have A Medical Power Of [employer] Customer Service? No MIGRATION.11711 91112 Information not available 11/18/2022 What Was The Date Of Your Most Recent Tobacco Screening? 04/12/2019 MIGRATION.65141 84786 Information not available 11/18/2022 Do You Have Any Pets? Yes MIGRATION.43996 60132 Information not available 11/18/2022 What Is Your Relationship Status? Information not available 09/02/2023 Do You Use Your Seat Belt Or Car Seat Routinely? Yes MIGRATION.35061 00259 Information not available 11/18/2022 Do You Have Smoke And Carbon Monoxide Detectors In Your Home? Yes MIGRATION.87032 51029 Information not available 11/18/2022 Are You Passively Exposed To Smoke? No MIGRATION.00692 78154 Information not available 11/18/2022 Are There Any Smokers In Your House? No MIGRATION.55412 10978 Information not available 11/18/2022 Do You Participate In Social Media? Yes MIGRATION.73301 01197 Information not available 11/18/2022 Do You Feel Stressed (tense, Restless, Nervous, Or Anxious, Or Unable To Sleep At Night)? [id number] Information not available 09/02/2023 Do You Use Any Illicit Or Recreational Drugs? No MIGRATION.12730 51526 Information not available 11/18/2022 Do You Use Sunscreen Routinely? Yes MIGRATION.22321 67137 Information not available 11/18/2022 Have You Recently Traveled Abroad? No MIGRATION.88193 14747 Information not available 11/18/2022 Do You Have Any Dietary Restrictions? No MIGRATION.88343 16135 Information not available 11/18/2022 Sex: Female Functional Status Question Answer Note LastModified by Organizat ion Details LastModified Time What is your exercise level? Moderate [id number] Information not available 11/18/2022 Mental Status None recorded. Family History Relationship Description Onset Age of this Age Resolved Age Notes LastModified by Organization Details LastModified Time Mother Malignant tumor of lung MIGRATION.207 [id number] Not available 11/18/2022 08:19:34 Mother Malignant tumor of vagina MIGRATION.178 [id number] Not available 11/18/2022 08:19:34 Paternal Grandfather Myocardial infarction MIGRATION.127 [id number] Not available 11/18/2022 08:19:34 Father Malignant tumor of prostate MIGRATION.300 [id number] Not available 11/18/2022 08:19:34 Father Cardiopulmon maldonado bypass operation MIGRATION.367 [id number] Not available 11/18/2022 08:19:34 Father Primary malignant neoplasm of urethra MIGRATION.113 [id number] Not available 11/18/2022 08:19:34 Father Malignant neoplasm of urinary bladder MIGRATION.122 [id number] Not available 11/18/2022 08:19:34 Father Malignant neoplasm of liver MIGRATION.012 [id number] Not available 11/18/2022 08:19:34 Father Malignant tumor of kidney MIGRATION.987 [id number] Not available 11/18/2022 08:19:34 Father Malignant neoplasm of bone MIGRATION.815 [id number] Not available 11/18/2022 08:19:34 Maternal Grandmother Malignant tumor of lung MIGRATION.479 [id number] Not available 11/18/2022 08:19:35 Medical History Condition Response HEADACHES/MIGRAINES Y FEMALE PROBLEMS / INFECTIONS Y DEPRESSION (INCLUDING POST ) Y Gynecological History Statement/Question Response Date of Last Mammogram 03/20/2022 Flow Heavy Most Recent Bone Density 08/05/2022 Date of LMP 08/20/2022 Frequency of Cycle (Q days) 28 Menses Monthly Y Date of Last Pap 12/19/2021 Duration of Flow (days) 4 Current Control Method None Most Recent Mammogram Obstetrics History GPAL:G 2 P 2 0 0 2 Type Value Full Term 2 Living 2 Total 2 Immunizations Vaccine Type Date Status Note Provider Nam e and Address Organization Details Recorded Time influenza, unspecified formulation 3 completed Ernestina Garcia NP [address] [facility], [place], [address], [place] [facility] 09/02/2023 15:45:30 Influenza, split virus, trivalent, preservative 6 completed Not Available [facility] 11/18/2022 08:30:44 Influenza, split virus, trivalent, preservative 5 completed Not Available [facility] 11/18/2022 08:30:44 Influenza, split virus, trivalent, preservative 3 completed Not Available [facility] 11/18/2022 08:30:44 Tdap 9 completed Not Available [facility] 11/18/2022 08:30:44 Past Encounters Encounter ID Performer Location Encounter Start Date Encounter Closed Date Diagnosis/Indication Diagnosis SNOMED-CT Code Diagnosis ICD10 Code Diagnosis Note [id number] [address] [address] 03/25/2021 00:00:00 03/25/2021 16:36:[id number] [address] 08/19/2021 00:00:00 08/19/2021 15:49:[id number] [address] 12/24/2021 00:00:00 12/24/2021 16:14:[id number] [address] 05/05/2022 00:00:00 05/05/2022 15:40:31 [id number] Ernestina Garcia NP [address] [address] 09/02/2023 14:46:07 09/02/2023 16:27:42 Screening for malignant neoplasm of breast 781249376 Z12.39 Mammogram ordered 09/02/23. Pharyngitis 334705041 J0 2.9 rss negative Anemia screening 9069606 07 Z13.0 Diabetes m ellitus screening 830257279 Z13.1 Thyroid di sorder screening 601218420 Z13.29 Hyperlipid emia screening 417481788 Z13.220 Adult heal th examination 961300557 Z00.00 Encouraged well balanced meals, active lifestyle, and routine vision and dental appts. Health Concerns Section Related Observation LastModified by Organization Detai ls LastModified Time None Recorded Concern Status LastModified by Organization Details LastModified Time None Recorded Advance Directives Directive N: Payers Encounter Date Sequence Insurance Name Policy Number Policy Hurley Covered Member ID Hurley Member ID Guarantor Name 09/02/2023 1 [facility] Keenjar PLUS (PPO) [id number] Shruthi Mcguire [id number] Shruthi Mcguire Notes Date Note Type Note Provider Name and Address Organization Details Recorded Time 09/02/2023 text/html Here for wellness. Having multiple periods monthly. Needs to get in with PANEL FITTER.Last few hours having drainage and started on allergy pill. Sore throat, red. No fever or chills. 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 Overdue for labs.Due for mammogram.Seeing Louise Carlos for derm- hx melanoma Ernestina Garcia NP [address] [facility], [facility] [address], [place], [address], [place] [employer] [facility] [employer] [facility] 09/02/2023 16:27:01 OBGyn Episode No OBEpisode recorded.
--- OUTSIDE RECORDS SUMMARY | 2025-01-03 00:46 | XMS_ITS | Encounter Summary ---
Author Organization [facility] Address [address] [facility] Attn: Epic Prelude ADT HENRIK QUINONES [address] Care Team Providers Care Willow Machine Operator Name Role Phone Joann FranklinP Primary Care Provider Encounter Details Date Type Department Care Team (Late st Contact Info) Description 04/12/1997 Outpatient Historical Conversion, History Christiano Morrison Social History Tobacco Use Types Packs/Day Years Used Date Smoking Tobacco: Never Assessed Comments Unknown Sex and Gender Information Value Date Recorded Sex Assigned at Not on file Legal Sex Female 3:48 AM YARD SPECIALIST Gender Identity Not on file Sexual Orientation Not on file documented as of this encounter Plan of Treatment Not on file documented as of this encounter Visit Diagnoses Not on filedocumented in this encounter Care Teams Willow Machine Operator Relationship Specialty Start Date End Date Joann Franklin FNP [address] [phone] PCP - General Nurse Practitioner Family 02/06/19 documented as of this encounter
--- OUTSIDE RECORDS SUMMARY | 2025-01-03 00:46 | XMS_ITS | Encounter Summary ---
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
--- OUTSIDE RECORDS SUMMARY | 2025-01-03 00:46 | XMS_ITS | Clinical Summary ---
Author Organization [employer] [id number] [facility] Address [address] [place] [address] Care Team Providers Care Senior Infrastructure Engineer Name Role Phone Joann Franklin CEMENT CONVEYOR OPERATOR Primary Care Provider Allergies No known active allergies Medications omega-3 fatty acids (FISH OIL ORAL) Active VITAMIN B COMPLEX ORAL Active MAGNESIUM ORAL Activ e ergocalciferol, vitamin D2, (VITAMIN D ORAL) Take by mouth. Active safflower oil/linoleic acid,co (CLA ORAL) Take by mouth. Active ibuprofen (MOTRIN) 200 mg tablet Take 200 mg by mouth every 6 hours as needed for Pain, Mild. 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), thoracic 2018 Family History Medical History Relation Name Comments Cancer Father Cancer Mother Relation Name Status Comments Father Mother Social History Tobacco Use Types Packs/Day Years Used Date Smoking Tobacco: Never Alcohol Use Standard Drinks/Week Comments Yes 0 (1 standard drink = 0.6 oz pur e alcohol) rarely Comments Unknown Sex and Gender Information Value Date Recorded Sex Assigned at Not on file Legal Sex Female 3:48 AM SUPERVISOR WEAVING Gender Identity Not on file Sexual Orientation Not on file Last Filed Vital Signs Vital Sign Reading Time Taken Comments Blood Pressure 110/76 02/06/2019 3:32 PM CDT Pulse - - Temperature - - Respiratory Rate - - Oxygen Saturation - - Inhaled Oxygen Concentration - - Weight 76.2 kg (168 lb) 02/06/2019 3:32 PM CDT Height 170.2 cm (5' 7 ) 02/06/2019 3:32 PM CDT Body Mass Index 26.31 02/06/2019 3:32 PM CDT Plan of Treatment Health Maintenance Due Date Last Done Comments HEPATITIS B VACCINES (1 of 3 - 19+ 3-dose series) 1993 HPV/Cotest (21-29) 1995 PAP SMEAR 1995 CERVICAL CANCER SCREENING 2004 HPV/Cotest (30-65) 2004 PAP SMEAR 2004 BREAST CANCER SCREENING 2014 COLORECTAL SCREENING 2019 Colorectal Cancer Screening 2019 FIT-DNA Q 3 years 2019 FIT/FOBT Q 1 year 2019 Flex Sig/CT Colonography Q 5 years 2019 INFLUENZA VACCINE (#1) 2024 6, 07/11/2015, 07/14/2013 ZOSTER VACCINE (1 of 2) 2024 DTAP/TDAP/TD VACCINES (2 - T d or Tdap) 04/12/2029 04/12/2019 PNEUMOCOCCAL VACCINE 0-49 YEARS Aged Out No longer eligible b ased on patient's age to complete this topic Insurance [id number] [place] [id number] Care Teams Senior Infrastructure Engineer Relationship Specialty Start Date End Date Joann Franklin, KATHERIN [address] [phone] PCP - General Nurse Practitioner Family 02/06/19
--- OUTSIDE RECORDS SUMMARY | 2025-01-03 00:46 | XMS_ITS | Encounter Summary ---
Author Organization [facility] Address [address] [facility] Attn: Epic Prelude ADT HENRIK QUINONES [address] Care Team Providers Care Department Assistant Name Role Phone Joann FranklinP Primary Care Provider Encounter Details Date Type Department Care Team (Late st Contact Info) Description 04/06/1997 Outpatient Historical Conversion, History Christiano Morrison Social History Tobacco Use Types Packs/Day Years Used Date Smoking Tobacco: Never Assessed Comments Unknown Sex and Gender Information Value Date Recorded Sex Assigned at Not on file Legal Sex Female 3:48 AM ENGINEER BOOSTER AND EXHAUSTER Gender Identity Not on file Sexual Orientation Not on file documented as of this encounter Plan of Treatment Not on file documented as of this encounter Visit Diagnoses Not on filedocumented in this encounter Care Teams Department Assistant Relationship Specialty Start Date End Date Joann Franklin FNP [address] [phone] PCP - General Nurse Practitioner Family 02/06/19 documented as of this encounter
--- OUTSIDE RECORDS SUMMARY | 2025-01-03 00:46 | XMS_ITS | Encounter Summary ---
Author Organization [facility] Address [address] [facility] Attn: Epic Prelude ADT HENRIK QUINONES [phone] Care Team Providers Care Caretaker Grounds Name Role Phone Joann FranklinP Primary Care Provider Encounter Details Date Type Department Care Team (Late st Contact Info) Description 08/28/1997 Outpatient Historical Conversion, History Christiano Morrison Social History Tobacco Use Types Packs/Day Years Used Date Smoking Tobacco: Never Assessed Comments Unknown Sex and Gender Information Value Date Recorded Sex Assigned at Not on file Legal Sex Female 3:48 AM DATAPOWER DEVELOPER Gender Identity Not on file Sexual Orientation Not on file documented as of this encounter Plan of Treatment Not on file documented as of this encounter Visit Diagnoses Not on filedocumented in this encounter Care Teams Caretaker Grounds Relationship Specialty Start Date End Date Joann Franklin FNP [address] [phone] PCP - General Nurse Practitioner Family 02/06/19 documented as of this encounter
[2025-01-03 06:15] VITALS: BP 113/66; PULSE 88; RESP 20; TEMP 36.1; O2SAT 100; BMI 26.6
[2025-01-03] MEDS: LACTATED RINGERS 1,000 ML 150 ML IV CONT (06:19)
--- NOTE | 2025-01-03 07:17 | P.PNAN_ITS ---
Anes - Initial Pre Proc Eval Procedure: Operation Date: 01/03/25 07:30 Proposed Procedures p Esophagogastroduodenoscopy&Screen Colon - Fred Hernandez MD Date/Time: 01/03/25 07:17 Surgeon: Fred Hernandez MD Pre Op Diagnosis: dysphagia, eosinophilic esophagitis, screening col Patient Data Age: 49 Gender: F Height: 1.7 m Weight: 77 kg Last Vital Signs Temp 36.1 C L 01/03/25 06:15 Pulse 88 01/03/25 06:15 Resp 20 01/03/25 06:15 BP 113/66 01/03/25 06:15 Pulse Ox 100 01/03/25 06:15 O2 Del Method Room Air 01/03/25 06:15 Allergies Allergy/AdvReac Type Severity Reaction Status Date / Time No Known Allergies Allergy Verified 01/03/25 06:14 Home Medications ?Medication ?Instructions ?Recorded ?Confirmed ?Type valacyclovir 1 gram tablet 1,000 mg PO Q12H PRN cold sores 12/27/24 12/27/24 History Patient hx anesthesia problems: post op nausea/vomiting Family hx anesthesia problems: none Results Review: All pre-operative results and documents have been reviewed as part of the pre- operative evaluation. 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 Overweight (BMI 25.0-29.9) Basal cell carcinoma of skin left collarbone Melanoma in situ September 2017 Endometriosis determined by laparoscopy Surgical History Surgical History H/O bilateral salpingectomy History of laparoscopy History of cholecystectomy Family History Family History Father Heart disease Grandparent Cancer Social History Social History Smoking packs per day: 0 Smoking cigarettes per day: 0.0 Years smoked: 0 Smoking pack-years: 0.00 Smoking status: Never smoker Second hand tobacco smoke exposure: Yes Alcohol intake: current Drinks per week: 10 Alcohol use details: occasionally Substance use: never Substance use type: does not use Do You Feel Safe in your Home?: Yes Lack of Transportation: No Lack of Food: Never True Current Housing: I Have Housing Concerned About Future Housing: No Difficulty Paying Gas/Electric Bills: Decline to Answer Difficulty Paying for Meds: Decline to Answer Currently Unemployed: Decline to Answer Education: Associate Degree Difficulty w/ Childcare or Family Care: No Living arrangements: alone Occupation/Education: occupation 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[employer]; 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 Informed Consent: The patient's anesthetic plan and its attendant risks and benefits were discussed with the patient/family/POA. Questions were solicited and answers provided to the satisfaction of the patient/family/POA.
--- NOTE | 2025-01-03 07:26 | P.HP_ITS ---
History of Present Illness History of Present Illness Consent: Risks, benefits, and alternatives have been discussed and questions answered. Patient agrees to proceed with procedure. Chief complaint: dysphagia, eosinophilic esophagitis, screening col Narrative: Shruthi Mcguire is a 49 year old female with gerd, will do EGD. Last colonoscopy 10 years ago. 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 Overweight (BMI 25.0-29.9) Basal cell carcinoma of skin left collarbone Melanoma in situ September 2017 Endometriosis determined by laparoscopy Surgical History Surgical History H/O bilateral salpingectomy History of laparoscopy History of cholecystectomy Family History Family History Father Heart disease Grandparent Cancer Social History Social History Smoking packs per day: 0 Smoking cigarettes per day: 0.0 Years smoked: 0 Smoking pack-years: 0.00 Smoking status: Never smoker Second hand tobacco smoke exposure: Yes Alcohol intake: current Drinks per week: 10 Alcohol use details: occasionally Substance use: never Substance use type: does not use Do You Feel Safe in your Home?: Yes Lack of Transportation: No Lack of Food: Never True Current Housing: I Have Housing Concerned About Future Housing: No Difficulty Paying Gas/Electric Bills: Decline to Answer Difficulty Paying for Meds: Decline to Answer Currently Unemployed: Decline to Answer Education: Associate Degree Difficulty w/ Childcare or Family Care: No Living arrangements: alone Occupation/Education: occupation 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[employer]; 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 Gender identity (if verbalized by the patient): Female Spiritual care concerns: No Meds Home Medications and Allergies Home Medications ?Medication ?Instructions ?Recorded ?Confirmed ?Type valacyclovir 1 gram tablet 1,000 mg PO Q12H PRN cold sores 12/27/24 12/27/24 History Allergies Allergy/AdvReac Type Severity Reaction Status Date / Time No Known Allergies Allergy Verified 01/03/25 06:14 Vital Signs Vital Signs - 24 hr 01/03/25 06:15 Temperature 97.0 F L Pulse Rate 88 Respiratory Rate 20 Blood Pressure 113/66 Pulse Oximetry 100 Oxygen Delivery Room Air Exam Const: General: comfortable and no acute distress HENMT: Face/Nose/Sinus: Normal nares present Eyes: General: appearance normal, both eyes and all related structures Neck: Neck: no JVD Resp: Auscultation: clear to auscultation bilaterally Cardio: Rate: regular rate Rhythm: regular rhythm GI: Inspection: non-distended GI Palp: Yes Soft to palpation Skin: General skin exam: normal color Neuro: General: gait normal Speech: normal speech Extrem: General: normal to inspection Psych: Mental Status: mental status grossly normal Assessment and Plan Assessment and plan (1) GERD (gastroesophageal reflux disease): Code(s): K21.9 - Gastro-esophageal reflux disease without esophagitis Status: Acute Assessment and Plan: egd with bx (2) Colon cancer screening: Code(s): Z12.11 - Encounter for screening for malignant neoplasm of colon Status: Acute Assessment and Plan: colonoscopy
--- NOTE | 2025-01-03 07:47 | SUR.OPER ---
EGD ended at 737, colon began at 742.
[2025-01-03 07:57] VITALS: BP 108/65; PULSE 74; RESP 16; O2SAT 100
[2025-01-03 08:07] VITALS: BP 115/79; PULSE 73; RESP 21; O2SAT 100
[2025-01-03 08:17] VITALS: BP 114/64; PULSE 72; RESP 17; O2SAT 100
== END 2025-01-03 08:22 | disposition home or self-care (01) ==
PROVIDERS: PCP Nurse Practitioner Family; Referring Provider Nurse Practitioner Family; Visit Provider Internal Medicine Gastroenterology
PROC: 0DJ08ZZ Inspection of Upper Intestinal Tract, Via Natural or Artificial Opening Endoscopic (ICD-10-PCS; CPT 45378; principal; 2025-01-03 07:30)
DX: Z12.11 Encounter for screening for malignant neoplasm of colon (principal); K21.00 Gastro-esophageal reflux disease with esophagitis, without bleeding; R13.10 Dysphagia, unspecified
CPT/HCPCS: 45378; 43239; 43450; 88305; J2003; J2704; J7120

== ENCOUNTER 2025-03-12 13:51 | Outpatient (CLI) | payer OTHER, SELFPAY ==
--- NOTE | ~2025-03-12 | MR_ITS ---
MRI of the lumbar spine Clinical History: Back pain radiating to left leg Technique: Axial T2-weighted images, and sagittal T1-weighted, T2-weighted, and T2 fat-sat images wer e acquired. Findings: No fracture identified. There is 2 mm retrolisthesis of L5 over S1. No bone marrow signal a bnormality seen. At L1-L2, L2-L3, L3-L4, intervertebral discs maintain normal signal and position. No disc bulge or he rniation at these levels. There is mild to moderate facet arthropathy at these levels. No spinal vannessa l stenosis or neural foraminal narrowing at these levels. At L4-L5, there is minimal degenerative disc narrowing. There is no disc bulge or herniation. There i s advanced facet arthropathy. No central canal stenosis or neural foraminal narrowing. At L5-S1, there is mild degenerative thinning with minimal disc bulge. There is mild to moderate face t arthropathy. No central canal stenosis or neural foraminal narrowing. Paravertebral soft tissues are unremarkable. Impression: Mild degenerative spondylosis, as above. Reviewed, dictated and finalized at location M. Impression: Mild degenerative spondylosis, as above.
--- NOTE | ~2025-03-12 | MR_ITS ---
MRI of the cervical spine Clinical History: Neck and left arm pain Technique: Axial T2-weighted and gradient images, and sagittal T1-weighted, T2-weighted, and STIR dianelys ges were acquired. Findings: There is reversal of the normal cervical lordosis. There is fusion across the C5-C6 disc sp maddie. No fracture or subluxation evident. No bone marrow signal abnormality seen. At C2-C3, there is minimal facet arthropathy and minimal disc bulge. No spinal canal stenosis, cord c ompression, or neural foraminal narrowing. At C3-C4, there is minimal facet arthropathy. No central canal stenosis, cord compression, or right n eural foraminal narrowing. Possible minimal left neural foraminal narrowing. At C4-C5, there is moderate degenerative distended. There is disc ossify complex with mild canal sten osis and compression of the ventral cord. There is mild left neural foraminal narrowing. Right neural foramen preserved. At C5-C6, there is no disc bulge or herniation. No spinal canal stenosis or right neural foraminal na rrowing. There is mild left neural foraminal narrowing. At C6-C7, there is disc osteophyte complex. There is no canal stenosis or cord compression. There is left neural foraminal narrowing. Right neural foramen preserved. There are no abnormal signal seen in the spinal cord. Paravertebral soft tissues are unremarkable. Impression: Mild compression of the ventral cord at C4-C5 related to disc osteophyte complex. Fusion across the C5-C6 disc space with reversal of the normal cervical lordosis. Reviewed, dictated and finalized at [facility]. Impression: Mild compression of the ventral cord at C4-C5 related to disc osteophyte comple x. Fusion across the C5-C6 disc space with reversal of the normal cervical lordosi s.
--- NOTE | ~2025-03-12 | MR_ITS ---
MRI of the thoracic spine Clinical History: Pain Technique: Axial T2-weighted and gradient images, and sagittal T1-weighted, T2-weighted, and STIR dianelys ges were acquired. Findings: There is no acute fracture or subluxation of the thoracic spine. There is mild chronic loss of height of T7, T8, and T9 vertebral bodies. Probable small scattered intraosseous hemangiomas. No suspicious bone marrow signal abnormality. There is multilevel mild degenerative disc change. No significant disc bulge or herniation seen at an y thoracic level. No spinal canal stenosis or cord compression in the thoracic spine. Neural foramina are preserved throughout. No abnormal signal seen in the spinal cord. Paravertebral soft tissues are unremarkable. Impression: Mild degenerative spondylosis. Mild chronic compression deformities of T7, T8, and T9. Reviewed, dictated and finalized at [facility]. Impression: Mild degenerative spondylosis. Mild chronic compression deformities of T7, T8, and T9.
== END 2025-03-12 13:52 | disposition home or self-care (01) ==
PROVIDERS: PCP Nurse Practitioner Family; Visit Provider Nurse Practitioner Family
DX: M47.894 Other spondylosis, thoracic region (principal); M47.896 Other spondylosis, lumbar region
CPT/HCPCS: 72141; 72146; 72148

== ENCOUNTER 2025-04-24 05:38 | Outpatient (CLI) | payer OTHER, SELFPAY ==
--- OUTSIDE RECORDS SUMMARY | 2025-04-24 05:42 | XMS_ITS | Clinical Summary ---
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 Gender Identity Not on file Sexual Orientation Not on file Last Filed Vital Signs Vital Sign Reading Time Taken Comments Blood Pressure 110/76 02/06/2019 3:32 PM CDT Pulse - - Temperature - - Respiratory Rate - - Oxygen Saturation - - Inhaled Oxygen Concentration - - Weight 76.2 kg (168 lb) 02/06/2019 3:32 PM CDT Height 170.2 cm (5' 7) 02/06/2019 3:32 PM CDT Body Mass Index 26.31 02/06/2019 3:32 PM CDT Plan of Treatment Health Maintenance Due Date Last Done Comments HEPATITIS B VACCINES (1 - + 3-dose series) 1993 HPV/Cotest (21-29) 1995 CERVICAL CANCER SCREENING 2004 HPV/Cotest (30-65) 2004 PAP SMEAR 2004 BREAST CANCER SCREENING 2014 COLORECTAL SCREENING 2019 Colorectal Cancer Screening 2019 FIT-DNA Q 3 years 2019 FIT/FOBT Q 1 year 2019 Flex Sig/CT Colonography Q 5 years 2019 ZOSTER VACCINE (1 of 2) 2024 INFLUENZA VACCINE (#1) 2025 6, 07/11/2015, 07/14/2013 DTAP/TDAP/TD VACCINES (2 - T d or Tdap) 04/12/2029 04/12/2019 Insurance [facility] OPTIONS PPO [id number] Care Teams Elastic Attacher Zigzag Relationship Specialty Start Date End Date Joann Franklin FNP [address] [facility] [address] [place] [phone] PCP - General Nurse Practitioner Family 02/06/19
--- OUTSIDE RECORDS SUMMARY | 2025-04-24 05:42 | XMS_ITS | Encounter Summary ---
Author Organization [facility] Address [address] [facility] Attn: Epic Prelude ADT HENRIK QUINONES [address] Care Team Providers Care Jack Machine Operator Name Role Phone Joann Franklin Primary Care Provider [phone] Encounter Details Date Type Department Care Team (Late st Contact Info) Description 09/06/1997 Outpatient Historical Conversion, History Christiano Morrison Social History Tobacco Use Types Packs/Day Years Used Date Smoking Tobacco: Never Assessed Comments Unknown Sex and Gender Information Value Date Recorded Sex Assigned at Not on file Legal Sex Female 3:48 AM HOSPICE PLAN ADMINISTRATOR Gender Identity Not on file Sexual Orientation Not on file documented as of this encounter Plan of Treatment Not on file documented as of this encounter Visit Diagnoses Not on filedocumented in this encounter Care Teams Jack Machine Operator Relationship Specialty Start Date End Date Joann Franklin FNP [address] [phone] PCP - General Nurse Practitioner Family 02/06/19 documented as of this encounter
--- OUTSIDE RECORDS SUMMARY | 2025-04-24 05:42 | XMS_ITS | Encounter Summary ---
Author Organization [facility] Address [address] [facility] Attn: Epic Prelude ADT HENRIK QUINONES [address] Care Team Providers Care Lathe Machinist Name Role Phone Joann Franklin Primary Care Provider [phone] Encounter Details Date Type Department Care Team (Late st Contact Info) Description 04/06/1997 Outpatient Historical Conversion, History Christiano Morrison Social History Tobacco Use Types Packs/Day Years Used Date Smoking Tobacco: Never Assessed Comments Unknown Sex and Gender Information Value Date Recorded Sex Assigned at Not on file Legal Sex Female 3:48 AM POLICE CHIEF Gender Identity Not on file Sexual Orientation Not on file documented as of this encounter Plan of Treatment Not on file documented as of this encounter Visit Diagnoses Not on filedocumented in this encounter Care Teams Lathe Machinist Relationship Specialty Start Date End Date Joann Franklin FNP [address] [phone] PCP - General Nurse Practitioner Family 02/06/19 documented as of this encounter
--- OUTSIDE RECORDS SUMMARY | 2025-04-24 05:42 | XMS_ITS | Encounter Summary ---
Author Organization [facility] Address [address] [facility] Attn: Epic Prelude ADT HENRIK QUINONES [address] Care Team Providers Care Building Performance Specialist Name Role Phone Joann Franklin Primary Care Provider [phone] Encounter Details Date Type Department Care Team (Late st Contact Info) Description 05/31/1997 Outpatient Historical Conversion, History Christiano Morrison Social History Tobacco Use Types Packs/Day Years Used Date Smoking Tobacco: Never Assessed Comments Unknown Sex and Gender Information Value Date Recorded Sex Assigned at Not on file Legal Sex Female 3:48 AM COKEMAN Gender Identity Not on file Sexual Orientation Not on file documented as of this encounter Plan of Treatment Not on file documented as of this encounter Visit Diagnoses Not on filedocumented in this encounter Care Teams Building Performance Specialist Relationship Specialty Start Date End Date Joann Franklin FNP [address] [phone] PCP - General Nurse Practitioner Family 02/06/19 documented as of this encounter
--- OUTSIDE RECORDS SUMMARY | 2025-04-24 05:42 | XMS_ITS | Encounter Summary ---
Author Organization [facility] Address [address] [facility] Attn: Epic Prelude ADT HENRIK QUINONES [address] Care Team Providers Care Car Installations Supervisor Name Role Phone Joann Franklin Primary Care Provider +1- [phone] Encounter Details Date Type Department Care Team (Late st Contact Info) Description 08/28/1997 Outpatient Historical Conversion, History Christiano Morrison Social History Tobacco Use Types Packs/Day Years Used Date Smoking Tobacco: Never Assessed Comments Unknown Sex and Gender Information Value Date Recorded Sex Assigned at Not on file Legal Sex Female 3:48 AM VACUUM KETTLE COOK Gender Identity Not on file Sexual Orientation Not on file documented as of this encounter Plan of Treatment Not on file documented as of this encounter Visit Diagnoses Not on filedocumented in this encounter Care Teams Car Installations Supervisor Relationship Specialty Start Date End Date Joann Franklin FNP [address] [phone] PCP - General Nurse Practitioner Family 02/06/19 documented as of this encounter
--- OUTSIDE RECORDS SUMMARY | 2025-04-24 05:42 | XMS_ITS | Clinical Summary ---
Author Organization [facility] Address [address] [place] [address] Care Team Providers Care Oracle Sql Developer Name Role Phone Joann Franklin [facility] Primary Care Provider + Social History [...] HPV 2004 Mammogram Screening 2014 COVID-19 Vaccine ( - 2023-2 5 season) 2024 Pneumococcal Vaccine: 50+ Ye ars (1 of 1 - PCV) 2024 Zoster Vaccines (1 of 2) 2024 Meningococcal B Vaccine Aged Out No l onger eligible based on patient's age to complete this topic Meningococcal Vaccine Aged Out No char michelle eligible based on patient's age to complete this topic RSV Immunizations Under 20 Months Aged Out No longer eligible based on patient's age to complete this topic Care Teams Oracle Sql Developer Relationship Specialty Start Date End Date Joann Franklin, [facility] [address] [place] [phone] PCP - General NURSE PRACTITIONER 01/07/22
--- OUTSIDE RECORDS SUMMARY | 2025-04-24 05:42 | XMS_ITS | Encounter Summary ---
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
[2025-04-24 08:29] LABS: Add Urine Microscopic? YES; Appearance Urine Turbid (Clear); Glucose Urine UA Negative (Negative); Leukocyte Esterase Ur 2+ LEU/UL (Negative); Nitrate Urine Negative (Negative); Non Pathogenic Casts 0-2; Specific Grav Ur 1.021 (1.001-1.035)
== END 2025-04-24 05:39 | disposition home or self-care (01) ==
PROVIDERS: PCP Nurse Practitioner Family; Visit Provider Nurse Practitioner Family
DX: N39.0 Urinary tract infection, site not specified (principal)
CPT/HCPCS: 81001; 87086

== ENCOUNTER 2025-05-18 09:03 | Outpatient (CLI) | payer OTHER, SELFPAY ==
--- NOTE | 2025-05-18 09:08 | EST_ITS ---
Patient Info Name: Shruthi Mcguire Age: 49 years : 1975 Gender: Female Ht: 67 in Wt: 168 lbs BSA: 1.91 m2 HR: 108 bpm BP: 96 / 59 mmHg Heart Rhythm: Sinus Rhythm Exam Date: 05/18/2025 9:08 AM Patient Status: O Admit Date: 05/18/2025 Exam Type: CA stress test treadmill A treadmill exercise stress test was performed. Staff Attending Provider: Joann Franklin Exercise Technologist: Jocelyn Ospina Exercise Physician: Raji Moraes DO Summary 1. 1. Negative Tomazs exercise stress test for ischemic ST changes by ECG criteria. 2. 2. Good functional capacity, achieving 10 METs of workload. 3. 3. Appropriate HR response to exercise. 4. 4. Appropriate HR recovery at 1 minute post exercise. 5. 5. No imaging with stress testing. 6. 6. Patient informed of the above results. Protocol: Tomasz Stress ECG Details Stage: REST Duration (min): 4 min : 3 sec Speed (mph): 0.0 Grade (%): 0 HR (bpm): 79 SBP (mmHg): 96 DBP (mmHg): 59 METS: --- Stage: STAGE 1 Duration (min): 1 min : 0 sec Speed (mph): 1.7 Grade (%): 10 HR (bpm): 101 SBP (mmHg): 96 DBP (mmHg): 59 METS: --- Stage: STAGE 1 Duration (min): 2 min : 0 sec Speed (mph): 1.7 Grade (%): 10 HR (bpm): 103 SBP (mmHg): 96 DBP (mmHg): 59 METS: --- Stage: STAGE 1 Duration (min): 3 min : 0 sec Speed (mph): 1.7 Grade (%): 10 HR (bpm): 106 SBP (mmHg): 112 DBP (mmHg): 55 METS: --- Stage: STAGE 2 Duration (min): 1 min : 0 sec Speed (mph): 2.5 Grade (%): 12 HR (bpm): 120 SBP (mmHg): 112 DBP (mmHg): 55 METS: --- Stage: STAGE 2 Duration (min): 2 min : 0 sec Speed (mph): 2.5 Grade (%): 12 HR (bpm): 124 SBP (mmHg): 107 DBP (mmHg): 56 METS: --- Stage: STAGE 2 Duration (min): 3 min : 0 sec Speed (mph): 2.5 Grade (%): 12 HR (bpm): 128 SBP (mmHg): 107 DBP (mmHg): 56 METS: --- Stage: STAGE 3 Duration (min): 1 min : 0 sec Speed (mph): 3.4 Grade (%): 14 HR (bpm): 142 SBP (mmHg): 116 DBP (mmHg): 58 METS: --- Stage: STAGE 3 Duration (min): 2 min : 0 sec Speed (mph): 3.4 Grade (%): 14 HR (bpm): 146 SBP (mmHg): 116 DBP (mmHg): 58 METS: --- Stage: STAGE 3 Duration (min): 3 min : 0 sec Speed (mph): 3.4 Grade (%): 14 HR (bpm): 149 SBP (mmHg): 142 DBP (mmHg): 66 METS: --- Stage: STAGE 4 Duration (min): 0 min : 1 sec Speed (mph): 4.2 Grade (%): 16 HR (bpm): 149 SBP (mmHg): 142 DBP (mmHg): 66 METS: --- Stage: RECOVERY Duration (min): 0 min : 58 sec Speed (mph): 0.0 Grade (%): 0 HR (bpm): 118 SBP (mmHg): 142 DBP (mmHg): 66 METS: --- Stage: RECOVERY Duration (min): 1 min : 58 sec Speed (mph): 0.0 Grade (%): 0 HR (bpm): 101 SBP (mmHg): 142 DBP (mmHg): 66 METS: --- Stage: RECOVERY Duration (min): 2 min : 58 sec Speed (mph): 0.0 Grade (%): 0 HR (bpm): 96 SBP (mmHg): 103 DBP (mmHg): 67 METS: --- Stage: RECOVERY Duration (min): 3 min : 22 sec Speed (mph): 0.0 Grade (%): 0 HR (bpm): 94 SBP (mmHg): 103 DBP (mmHg): 67 METS: --- Rest HR: 79 bpm Peak HR: 150 bpm Rest Sys BP: 96 mmHg Peak Sys BP: 142 mmHg Max Pred HR: 170 bpm % Max Pred HR: 88 % Target HR: 145 bpm Max RPP: 21,300 bpm*mmHg Suero Score: 4 Termination Reason: Reached target heart rate or workload Cardiac Symptoms: None Max ST Seg Deviation: 1.10 mm Total Time: 9 min : 1 sec Rest Ortiz BP: 59 mmHg Peak Ortiz BP: 66 mmHg Angina Score: None Total METS: 10.3 Resting ECG Sinus rhythm, low voltage in diffuse leads, anteroseptal infarct, age indeterminate. Stress ECG No ST changes. Arrhythmias None. Report Signatures
--- OUTSIDE RECORDS SUMMARY | 2025-05-18 09:14 | XMS_ITS | Encounter Summary ---
Author Organization [facility] Address [address] [facility] Attn: Epic Prelude ADT HENIRK QUINONES [address] Care Team Providers Care Hooker Up Name Role Phone Joann Franklin Primary Care Provider +1- [phone] Encounter Details Date Type Department Care Team (Late st Contact Info) Description 09/06/1997 Outpatient Historical Conversion, History Christiano Morrison Social History Tobacco Use Types Packs/Day Years Used Date Smoking Tobacco: Never Assessed Comments Unknown Sex and Gender Information Value Date Recorded Sex Assigned at Not on file 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
--- OUTSIDE RECORDS SUMMARY | 2025-05-18 09:14 | XMS_ITS | Encounter Summary ---
Author Organization [facility] Address [address] [facility] Attn: Epic Prelude ADT HENRIK QUINONES [address] Care Team Providers Care Webfocus Developer Name Role Phone Joann Franklin Primary Care Provider +1- [phone] Encounter Details Date Type Department Care Team (Late st Contact Info) Description 04/06/1997 Outpatient Historical Conversion, History Christiano Morrison Social History Tobacco Use Types Packs/Day Years Used Date Smoking Tobacco: Never Assessed Comments Unknown Sex and Gender Information Value Date Recorded Sex Assigned at Not on file 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
--- OUTSIDE RECORDS SUMMARY | 2025-05-18 09:14 | XMS_ITS | Encounter Summary ---
Author Organization [facility] Address [address] [facility] Attn: Epic Prelude ADT HENRIK QUINONES [phone] Care Team Providers Care Horizontal Boring Mill Set Up Operator Name Role Phone Joann Franklin Primary Care Provider +1- [phone] Encounter Details Date Type Department Care Team (Late st Contact Info) Description 08/28/1997 Outpatient Historical Conversion, History Christiano Morrison Social History Tobacco Use Types Packs/Day Years Used Date Smoking Tobacco: Never Assessed Comments Unknown Sex and Gender Information Value Date Recorded Sex Assigned at Not on file Legal 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
--- OUTSIDE RECORDS SUMMARY | 2025-05-18 09:14 | XMS_ITS | Encounter Summary ---
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
--- OUTSIDE RECORDS SUMMARY | 2025-05-18 09:14 | XMS_ITS | Clinical Summary ---
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
--- OUTSIDE RECORDS SUMMARY | 2025-05-18 09:14 | XMS_ITS | Encounter Summary ---
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
== END 2025-05-18 09:04 | disposition home or self-care (01) ==
PROVIDERS: PCP Nurse Practitioner Family; Visit Provider Nurse Practitioner Family
DX: R07.89 Other chest pain (principal)
CPT/HCPCS: 93017

== ENCOUNTER 2025-05-23 13:28 | Outpatient (CLI) | payer OTHER, SELFPAY ==
--- NOTE | ~2025-05-23 | US_ITS ---
EXAMINATION: US pelvic complete w TV INDICATION: Pelvic and perineal pain Comparison:Ultrasound dated 05/10/2018 TECHNIQUE: Multiple transabdominal and endovaginal sonographic images of the pelvis performed. FINDINGS: The uterus measures 9.5 x 4.5 x 6.2 cm. There are echogenic foci in the cervix likely calcifications. The endometrial complex measures 8 mm. The right ovary measures 1.6 x 1.3 x 1.3 cm and the left ovary measures 2.3 x 1.7 x 2 cm. There are small follicles in each ovary. Normal doppler signal in both ovaries. There is no free fluid in the pelvis. There are no abnormal masses seen on either side. IMPRESSION: 1. Unremarkable pelvic ultrasound. Reviewed, dictated and finalized at location O.
--- OUTSIDE RECORDS SUMMARY | 2025-05-23 14:41 | XMS_ITS | Encounter Summary ---
Author Organization [facility] Address [address] [facility] Attn: Epic Prelude ADT HENRIK QUINONES [address] Care Team Providers Care Tomb Maker Helper Name Role Phone Joann Franklin Primary Care Provider +1- [phone] Encounter Details Date Type Department Care Team (Late st Contact Info) Description 09/06/1997 Outpatient Historical Conversion, History Christiano Morrison Social History Tobacco Use Types Packs/Day Years Used Date Smoking Tobacco: Never Assessed Comments Unknown Sex and Gender Information Value Date Recorded Sex Assigned at Not on file 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
--- OUTSIDE RECORDS SUMMARY | 2025-05-23 14:41 | XMS_ITS | Encounter Summary ---
Author Organization [facility] Address [address] [facility] Attn: Epic Prelude ADT HENRIK QUINONES [address] Care Team Providers Care Skin Piler Name Role Phone Joann Franklin Primary Care Provider +1- [phone] Encounter Details Date Type Department Care Team (Late st Contact Info) Description 05/31/1997 Outpatient Historical Conversion, History Christiano Morrison Social History Tobacco Use Types Packs/Day Years Used Date Smoking Tobacco: Never Assessed Comments Unknown Sex and Gender Information Value Date Recorded Sex Assigned at Not on file 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
--- OUTSIDE RECORDS SUMMARY | 2025-05-23 14:41 | XMS_ITS | Clinical Summary ---
Author Organization [facility] Address [address] [place] [address] Care Team Providers Care Senior Gis Analyst Name Role Phone Joann Franklin [facility] Primary Care Provider + Social History [...] Screening with HPV 2004 Mammogram Screening 2014 Pneumococcal Vaccine: 50+ Ye ars (1 of 1 - PCV) 2024 Zoster Vaccines (1 of 2) 2024 COVID-19 Vaccine ( - 2023-2 5 season) 2025 Meningococcal B Vaccine Aged Out No l onger eligible based on patient's age to complete this topic Meningococcal Vaccine Aged Out No char michelle eligible based on patient's age to complete this topic RSV Immunizations Under 20 Months Aged Out No longer eligible based on patient's age to complete this topic Care Teams Senior Gis Analyst Relationship Specialty Start Date End Date Joann Franklin [facility] [address] [place] [phone] PCP - General NURSE PRACTITIONER 01/07/22
--- OUTSIDE RECORDS SUMMARY | 2025-05-23 14:41 | XMS_ITS | Encounter Summary ---
Author Organization [facility] Address [address] [facility] Attn: Epic Prelude ADT HENRIK QUINONES [phone] Care Team Providers Care Tax Specialist Name Role Phone Joann Franklin Primary Care Provider +1- [phone] Encounter Details Date Type Department Care Team (Late st Contact Info) Description 08/28/1997 Outpatient Historical Conversion, History Christiano Morrison Social History Tobacco Use Types Packs/Day Years Used Date Smoking Tobacco: Never Assessed Comments Unknown Sex and Gender Information Value Date Recorded Sex Assigned at Not on file Legal 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
--- OUTSIDE RECORDS SUMMARY | 2025-05-23 14:41 | XMS_ITS | Encounter Summary ---
Author Organization [facility] Address [address] [facility] Attn: Epic Prelude ADT HENRIK QUINONES [phone] Care Team Providers Care Automatic Lump Making Machine Tender Name Role Phone Joann Franklin Primary Care Provider +1- [phone] Encounter Details Date Type Department Care Team (Late st Contact Info) Description 04/12/1997 Outpatient Historical Conversion, History Christiano Morrison Social History Tobacco Use Types Packs/Day Years Used Date Smoking Tobacco: Never Assessed Comments Unknown Sex and Gender Information Value Date Recorded Sex Assigned at Not on file 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
--- OUTSIDE RECORDS SUMMARY | 2025-05-23 14:41 | XMS_ITS | Encounter Summary ---
Author Organization [facility] Address [address] [facility] Attn: Epic Prelude ADT HENRIK QUINONES [address] Care Team Providers Care Pit Worker Power Shovel Name Role Phone Joann Franklin Primary Care Provider +1- [phone] Encounter Details Date Type Department Care Team (Late st Contact Info) Description 04/06/1997 Outpatient Historical Conversion, History Christiano Morrison Social History Tobacco Use Types Packs/Day Years Used Date Smoking Tobacco: Never Assessed Comments Unknown Sex and Gender Information Value Date Recorded Sex Assigned at Not on file Legal Sex Female 3:48 AM THINNER SPRAYER Gender Identity Not on file Sexual Orientation Not on file documented as of this encounter Plan of Treatment Not on file documented as of this encounter Visit Diagnoses Not on filedocumented in this encounter Care Teams Pit Worker Power Shovel Relationship Specialty Start Date End Date Joann Franklin FNP [address] [phone] PCP - General Nurse Practitioner Family 02/06/19 documented as of this encounter
--- OUTSIDE RECORDS SUMMARY | 2025-05-23 14:41 | XMS_ITS | Clinical Summary ---
Author Organization [employer] [address] Address [address] [place] [address] Care Team Providers Care Assessment Director Name Role Phone Joann Franklin [facility] Primary Care Provider [phone] Allergies No known active allergies Medications omega-3 [...] on file Legal Sex Female 3:48 AM OFFICE ASSOCIATE Gender Identity Not on file Sexual Orientation [...] T d or Tdap) 04/12/2029 04/12/2019 Insurance [facility] OPTIONS PPO [id number] Care Teams Assessment Director Relationship Specialty Start Date End Date Joann Franklin FNP [address] [facility] [address] [place] [address] PCP - General Nurse Practitioner Family 02/06/19
== END 2025-05-23 13:29 | disposition home or self-care (01) ==
PROVIDERS: PCP Nurse Practitioner Family; Visit Provider Obstetrics & Gynecology
DX: R10.2 Pelvic and perineal pain (principal)
CPT/HCPCS: 76830; 76856

== ENCOUNTER 2025-06-25 08:47 | Outpatient (CLI) | payer OTHER, SELFPAY ==
--- OUTSIDE RECORDS SUMMARY | 2025-06-25 09:16 | XMS_ITS | Encounter Summary ---
Author Organization [facility] Address [address] [facility] Attn: Epic Prelude ADT [place] [address] Care Team Providers Care Stone Splitter Name Role Phone Joann FranklinP Primary Care Provider [phone] Encounter Details Date Type Department Care Team (Late st Contact Info) Description 09/06/1997 Outpatient Historical Conversion, History Christiano Morrison Social History Tobacco Use Types Packs/Day Years Used Date Smoking Tobacco: Never Assessed Comments Unknown Sex and Gender Information Value Date Recorded Sex Assigned at Not on file Legal Sex Female 3:48 AM GATE WATCH Gender Identity Not on file Sexual Orientation Not on file documented as of this encounter Plan of Treatment Not on file documented as of this encounter Visit Diagnoses Not on filedocumented in this encounter Care Teams Stone Splitter Relationship Specialty Start Date End Date Joann Franklin FNP [address] [phone] PCP - General Nurse Practitioner Family 02/06/19 documented as of this encounter
--- OUTSIDE RECORDS SUMMARY | 2025-06-25 09:16 | XMS_ITS | Clinical Summary ---
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
--- OUTSIDE RECORDS SUMMARY | 2025-06-25 09:16 | XMS_ITS | Encounter Summary ---
Author Organization [facility] Address [address] [facility] Attn: Epic Prelude ADT [place] [address] Care Team Providers Care Health Care Assistant Name Role Phone Joann FranklinP Primary Care Provider Encounter Details Date Type Department Care Team (Late st Contact Info) Description 08/28/1997 Outpatient Historical Conversion, History Christiano Morrison Social History Tobacco Use Types Packs/Day Years Used Date Smoking Tobacco: Never Assessed Comments Unknown Sex and Gender Information Value Date Recorded Sex Assigned at Not on file Legal 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
--- OUTSIDE RECORDS SUMMARY | 2025-06-25 09:16 | XMS_ITS | Encounter Summary ---
Author Organization [facility] Address [address] [facility] Attn: Epic Prelude ADT [place] [address] Care Team Providers Care Labor Gang Supervisor Name Role Phone Joann FranklinP Primary Care Provider Encounter Details Date Type Department Care Team (Late st Contact Info) Description 05/31/1997 Outpatient Historical Conversion, History Christiano Morrison Social History Tobacco Use Types Packs/Day Years Used Date Smoking Tobacco: Never Assessed Comments Unknown Sex and Gender Information Value Date Recorded Sex Assigned at Not on file Legal Sex Female 3:48 AM STOVE MECHANIC Gender Identity Not on file Sexual Orientation Not on file documented as of this encounter Plan of Treatment Not on file documented as of this encounter Visit Diagnoses Not on filedocumented in this encounter Care Teams Labor Gang Supervisor Relationship Specialty Start Date End Date Joann Franklin FNP [address] [phone] PCP - General Nurse Practitioner Family 02/06/19 documented as of this encounter
--- OUTSIDE RECORDS SUMMARY | 2025-06-25 09:16 | XMS_ITS | Encounter Summary ---
Author Organization [facility] Address [address] [facility] Attn: Epic Prelude ADT [place] [address] Care Team Providers Care Head Stock Transfer Clerk Name Role Phone Joann FranklinP Primary Care Provider [phone] Encounter Details Date Type Department Care Team (Late st Contact Info) Description 04/12/1997 Outpatient Historical Conversion, History Christiano Morrison Social History Tobacco Use Types Packs/Day Years Used Date Smoking Tobacco: Never Assessed Comments Unknown Sex and Gender Information Value Date Recorded Sex Assigned at Not on file Legal Sex Female 3:48 AM PENS AND PENCILS DIPPER Gender Identity Not on file Sexual Orientation Not on file documented as of this encounter Plan of Treatment Not on file documented as of this encounter Visit Diagnoses Not on filedocumented in this encounter Care Teams Head Stock Transfer Clerk Relationship Specialty Start Date End Date Joann Franklin FNP [address] [phone] PCP - General Nurse Practitioner Family 02/06/19 documented as of this encounter
--- OUTSIDE RECORDS SUMMARY | 2025-06-25 09:16 | XMS_ITS | Encounter Summary ---
Author Organization [facility] Address [address] [facility] Attn: Epic Prelude ADT [place] [address] Care Team Providers Care Director Safety Council Name Role Phone Joann FranklinP Primary Care Provider [phone] Encounter Details Date Type Department Care Team (Late st Contact Info) Description 04/06/1997 Outpatient Historical Conversion, History Christiano Morrison Social History Tobacco Use Types Packs/Day Years Used Date Smoking Tobacco: Never Assessed Comments Unknown Sex and Gender Information Value Date Recorded Sex Assigned at Not on file Legal Sex Female 3:48 AM QUARRY SUPERVISOR Gender Identity Not on file Sexual Orientation Not on file documented as of this encounter Plan of Treatment Not on file documented as of this encounter Visit Diagnoses Not on filedocumented in this encounter Care Teams Director Safety Council Relationship Specialty Start Date End Date Joann Franklin FNP [address] [phone] PCP - General Nurse Practitioner Family 02/06/19 documented as of this encounter
== END 2025-06-25 08:48 | disposition home or self-care (01) ==
LOC: ANHSURGERY 08:50
PROVIDERS: PCP Nurse Practitioner Family; Visit Provider Obstetrics & Gynecology
DX: N80.9 Endometriosis, unspecified (principal)
CPT/HCPCS: 36415; 86850; 86900; 86901

== ENCOUNTER 2025-06-26 14:00 | Outpatient (RCR) | payer OTHER, SELFPAY ==
--- NOTE | 2025-05-04 16:37 | PTOPEVAL1 ---
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 Reports alignment is the opposite way it should be. Pt is trying to prevent surgery if she can. 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 Reported Pain Level Pain Score 7: Self Report Assessment PT Clinical Summary Pt presents with complaints of neck pain that is chronic in nature and has a history of cervical fusion single level. She received updated MRI's for her spine showing multiple levels of degeneration throughout her spine. Evaluation shows abnormal spinal alignment with thoracic and cervical spine with flattened lordosis and kyphosis, forward shoulders, multiple levels of increased tone and decreased flexibility, decreased cervical and thoracic ROM (outside of normal decrease from spinal fusion). Pt will greatly benefit from physical therapy in order to improve deficits, reduce pain, and improve quality of life. Plan of Care Interventions Electrical Stimulation,Hot Pack/Cold Pack,Manual Therapy,Neuro Re-education,Patient/Caregiver Education,Therapeutic Activities,Therapeutic Exercise,Self-Care/Home Management,Other Other Interventions Taping, bracing PT Services Indicated Yes Treatment Frequency and 2x weekly x 20 visits Duration These treatments will address the objective and functional deficits as defined above. The patient will be advanced safely and appropriately in order for the patient to progress towards his/her prior level of function. Additional exercises will be introduced and as well as a comprehensive home exercise program upon discharge, if needed, ?to ensure carryover of functional gains achieved in the clinic. This treatment plan has been reviewed and agreement upon by the patient.
--- NOTE | 2025-05-04 16:37 | OPREHPOC ---
Outpatient Therapy Plan of Care This is a Multidisciplinary Plan of Care that may contain components documented by all disciplines (PT, OT, and ST.) PT Problem 1 PT Problem #1 Knowledge Deficit PT Goal 1 Goal / Goal Update Pt will be independent in HEP Pt will verbalize understanding of diagnosis and prognosis Target Visit 10 PT Problem 2 PT Problem #2 Pain PT Goal 1 Goal / Goal Update Pt will report lowest pain rating at 0/10 to show improvement in overall discomfort Target Visit 10 PT Goal 2 Goal / Goal Update Pt will report greatest pain level at 3/10 or less to improve ADLs and activities Target Visit 20 PT Problem 3 PT Problem #3 Impaired Range of Motion PT Goal 1 Goal / Goal Update Pt will demonstrate thoracic ROM of 50% or greater in all planes to offload stress on cervical spine . Target Visit 10 PT Goal 2 Goal / Goal Update Pt will demonstrate cervical rotation 50% fernando Target Visit 20
--- NOTE | 2025-05-22 16:19 | PCPTNOTE ---
Pt called to cx physical therapy appointment due to being sick this date.
--- NOTE | 2025-05-31 14:46 | PTOPPROG ---
Assessment and note entered by Shital Rapp, PT Evaluation Information Assessment Status Progress Diagnosis M50.321, Z98.1, M47.812 ICD-10 Condition Codes (PT) Cervicalgia M54.2 Other ICD-10 Condition Codes ( abnormal posture PT) Onset chronic Subjective Information N/T has resolved since starting therapy. Is more sore with exercises but is a muscle soreness. Reports thinks therapy is helping but is still in pain everyday. Assessment PT Clinical Summary Pt has attended 5 therapy sessions thus far and reports feeling improvement. States has not had N/ T in the left shoulder since starting therapy, states highest pain rating at 8/10 versus 10/10, and lowest pain rating reduced from 5/10 to 1/10. Pt is showing improved posture, resting muscle tone, and improving ROM. Pt will benefit continued therapy to continue progressing and improving pain and functional lifestyle. Plan of Care Interventions Electrical Stimulation,Hot Pack/Cold Pack,Manual Therapy,Neuro Re-education,Patient/Caregiver Education,Therapeutic Activities,Therapeutic Exercise,Self-Care/Home Management,Other Other Interventions Taping, bracing PT Services Indicated Yes Treatment Frequency and Cont 2x weekly x 10 visits Duration These treatments will address the objective and functional deficits as defined above. The patient will be advanced safely and appropriately in order for the patient to progress towards his/her prior level of function. Additional exercises will be introduced and as well as a comprehensive home exercise program upon discharge, if needed, ?to ensure carryover of functional gains achieved in the clinic. This treatment plan has been reviewed and agreement upon by the patient.
== END 2025-08-06 23:59 | disposition home or self-care (01) ==
LOC: ANHHIPT 14:00
PROVIDERS: Visit Provider Neurological Surgery
DX: M50.321 Other cervical disc degeneration at C4-C5 level (principal); M47.812 Spondylosis without myelopathy or radiculopathy, cervical region; Z95.1 Presence of aortocoronary bypass graft
CPT/HCPCS: 97014; 97110; 97140; 97162; 97750; G0283

== ENCOUNTER 2025-07-04 00:50 | Day surgery (SDC) | payer OTHER, SELFPAY ==
--- NOTE | 2025-06-08 08:53 | PC.NURSE ---
[facility] has started construction of its new state of the art ER which will open Spring 2026. With this, we anticipate parking may be a challenge for some our surgical patients and families. Parking spaces are limited but are available for all Surgical, obstetrics, and ER patients sharing this lot. If you arrive and find you are having a hard time finding a parking space, please note that we understand the challenges, please drive around the hospital and park near Hospital Entrance 1. When you enter this entrance, you can ask a volunteer to direct or take you back to the surgical waiting area to check in. We appreciate everyone?s understanding of these expected challenges while we build for your future. Report to the Outpatient Waiting Room, entrance under the green pavilion located off [address], at time _10 am on date _07/04/25 . Planned Procedure Time: _1200 noon .? Time changes happen often and if your time is changed the preop area will call you the afternoon before. - You and your visitor will be asked to self-screen and do not enter if you have any COVID symptoms. Please call surgeon if you need to reschedule. - A mask is optional within the hospital at this time. Patients may have clear liquids (water, carbonated beverages, clear teas, apple juice) until 3 hours prior to surgery( 9am) with a maximum of 20 ounces. - No food from midnight until time of surgery and no smoking, or chewing tobacco (or any form of nicotine). No chewing gum, candy or mints. - Take only the following medications with a SIP of water on the morning of surgery: NONE DO NOT STOP ANY OF YOUR OTHER PRESCRIPTION MEDICATIONS PRIOR TO SURGERY EXCEPT THE FOLLOWING Hold all vitamins and supplements for 3 days per anesthesiologist.LAST DOSE 06/30/25 Medications to discontinue per physician Date to take last dose Please no make-up, nail puerto rican, hairspray, perfume, deodorant, or body powder the day of surgery.? No jewelry (including any body piercings) or valuables the day of surgery, leave them at home.? Please take a shower or bath the night before, or the morning of, surgery with an antibacterial soap.? Wear comfortable, loose fitting clothing.? Children are encouraged to wear pajamas. - Jewelry must be removed prior to entering the operating room.? Rings and piercings that are not removed may be cut off. - The hospital will not accept responsibility for valuables.? - Please leave all valuables, including medications, at home the day of surgery. If you are going home after surgery, a licensed cement truck driver must drive you home.? - NO public transportation without another adult if you receive anesthesia. - We recommend that an adult stay with you for 24 hours following discharge. - We also recommend that you do not drive, make important decision, drink alcoholic beverages, or take any drugs that were not prescribed by your health care provider for at least 24 hours after your discharge time. Follow any additional instructions given to you from your surgeon. VERBAL AND WRITTEN instructions given to __PATIENT and asked if any additional questions and then verbalized understanding. Patient advised to call surgeon office or pre surgery nurse liaison [phone] if any additional questions.
[2025-06-08 09:49] VITALS: BP 106/72; PULSE 70; RESP 18; TEMP 36.8; O2SAT 100; BMI 27.3
[2025-07-04] VITALS (10 sets, daily range): BP systolic 114–128; BP diastolic 68–81; PULSE 66–92; RESP 12–16; TEMP 36.1–36.7; O2SAT 98–100
--- OUTSIDE RECORDS SUMMARY | 2025-07-04 00:54 | XMS_ITS | Clinical Summary ---
Author Organization [employer] [address] [facility] Address [address] [place] [address] Care Team Providers Care Chemical Analytical Sampler Name Role Phone Joann Franklin DIRECTOR OF RECRUITMENT Primary Care Provider Allergies No known active [...] on file Legal Sex Female 3:48 AM LARD RENDERER Gender Identity Not on file Sexual Orientation [...] or Tdap) 04/12/2029 04/12/2019 Insurance OPTIONS PPO [id number] Care Teams Chemical Analytical Sampler Relationship Specialty Start Date End Date Joann Franklin FNP [address] [phone] PCP - General Nurse Practitioner Family 02/06/19
--- OUTSIDE RECORDS SUMMARY | 2025-07-04 00:54 | XMS_ITS | Encounter Summary ---
Author Organization [facility] Address [address] [facility] Attn: Epic Prelude ADT [place] [address] Care Team Providers Care Petroleum Terminal Plant Operator Name Role Phone Joann FranklinP Primary Care Provider [phone] Encounter Details Date Type Department Care Team (Late st Contact Info) Description 04/12/1997 Outpatient Historical Conversion, History Christiano Morrison Social History Tobacco Use Types Packs/Day Years Used Date Smoking Tobacco: Never Assessed Comments Unknown Sex and Gender Information Value Date Recorded Sex Assigned at Not on file Legal Sex Female 3:48 AM LAWN CARETAKER Gender Identity Not on file Sexual Orientation Not on file documented as of this encounter Plan of Treatment Not on file documented as of this encounter Visit Diagnoses Not on filedocumented in this encounter Care Teams Petroleum Terminal Plant Operator Relationship Specialty Start Date End Date Joann Franklin FNP [address] [phone] PCP - General Nurse Practitioner Family 02/06/19 documented as of this encounter
--- OUTSIDE RECORDS SUMMARY | 2025-07-04 00:54 | XMS_ITS | Encounter Summary ---
Author Organization [facility] Address [address] [facility] Attn: Epic Prelude ADT [place] [address] Care Team Providers Care Recorder Of Deeds Name Role Phone Joann FranklinP Primary Care Provider [phone] Encounter Details Date Type Department Care Team (Late st Contact Info) Description 09/06/1997 Outpatient Historical Conversion, History Christiano Morrison Social History Tobacco Use Types Packs/Day Years Used Date Smoking Tobacco: Never Assessed Comments Unknown Sex and Gender Information Value Date Recorded Sex Assigned at Not on file Legal Sex Female 3:48 AM OCCUPATIONAL HEALTH NURSING DIRECTOR Gender Identity Not on file Sexual Orientation Not on file documented as of this encounter Plan of Treatment Not on file documented as of this encounter Visit Diagnoses Not on filedocumented in this encounter Care Teams Recorder Of Deeds Relationship Specialty Start Date End Date Joann Franklin FNP [address] [phone] PCP - General Nurse Practitioner Family 02/06/19 documented as of this encounter
--- OUTSIDE RECORDS SUMMARY | 2025-07-04 00:54 | XMS_ITS | Encounter Summary ---
Author Organization [facility] Address [address] [facility] Attn: Epic Prelude ADT [place] [address] Care Team Providers Care Chief Nurse Anesthetist Name Role Phone Joann FranklinP Primary Care Provider [phone] Encounter Details Date Type Department Care Team (Late st Contact Info) Description 04/06/1997 Outpatient Historical Conversion, History Christiano Morrison Social History Tobacco Use Types Packs/Day Years Used Date Smoking Tobacco: Never Assessed Comments Unknown Sex and Gender Information Value Date Recorded Sex Assigned at Not on file Legal Sex Female 3:48 AM MACHINE TAPER Gender Identity Not on file Sexual Orientation Not on file documented as of this encounter Plan of Treatment Not on file documented as of this encounter Visit Diagnoses Not on filedocumented in this encounter Care Teams Chief Nurse Anesthetist Relationship Specialty Start Date End Date Joann Franklin FNP [address] [phone] PCP - General Nurse Practitioner Family 02/06/19 documented as of this encounter
--- OUTSIDE RECORDS SUMMARY | 2025-07-04 00:54 | XMS_ITS | Encounter Summary ---
Author Organization [facility] Address [address] [facility] Attn: Epic Prelude ADT [place] [address] Care Team Providers Care Temp Recruiter Name Role Phone Joann FranklinP Primary Care Provider Encounter Details Date Type Department Care Team (Late st Contact Info) Description 08/28/1997 Outpatient Historical Conversion, History Christiano Morrison Social History Tobacco Use Types Packs/Day Years Used Date Smoking Tobacco: Never Assessed Comments Unknown Sex and Gender Information Value Date Recorded Sex Assigned at Not on file Legal Sex Female 3:48 AM CARD BOXER Gender Identity Not on file Sexual Orientation Not on file documented as of this encounter Plan of Treatment Not on file documented as of this encounter Visit Diagnoses Not on filedocumented in this encounter Care Teams Temp Recruiter Relationship Specialty Start Date End Date Joann Franklin FNP [address] [phone] PCP - General Nurse Practitioner Family 02/06/19 documented as of this encounter
--- OUTSIDE RECORDS SUMMARY | 2025-07-04 00:54 | XMS_ITS | Encounter Summary ---
Author Organization [facility] Address [address] [facility] Attn: Epic Prelude ADT [place] [address] Care Team Providers Care Body Welder Name Role Phone Joann FranklinP Primary Care Provider Encounter Details Date Type Department Care Team (Late st Contact Info) Description 05/31/1997 Outpatient Historical Conversion, History Christiano Morrison Social History Tobacco Use Types Packs/Day Years Used Date Smoking Tobacco: Never Assessed Comments Unknown Sex and Gender Information Value Date Recorded Sex Assigned at Not on file Legal Sex Female 3:48 AM PROFESSIONAL SKATER Gender Identity Not on file Sexual Orientation Not on file documented as of this encounter Plan of Treatment Not on file documented as of this encounter Visit Diagnoses Not on filedocumented in this encounter Care Teams Body Welder Relationship Specialty Start Date End Date Joann Franklin FNP [address] [phone] PCP - General Nurse Practitioner Family 02/06/19 documented as of this encounter
--- OUTSIDE RECORDS SUMMARY | 2025-07-04 00:54 | XMS_ITS | Data Portability ---
Author Organization [facility] Klick2Contact, Main Office Address [address] [place] [address] Care Team Providers Care Business Planner Name Role Phone ERNESTINA GARCIA Primary Care Provider [phone] ERNESTINA GARCIA Referring Provider [phone] Assessment No assessment recorded. Plan of Treatment Reminders Order Date Submit Date Provider Last Modified By Organization Details Last Modified Time Details Appointments None recorded. Lab rapid strep group A, throat 2022 023 [email or web address] [facility], [address] [place] [address], [phone], 3 16:25:34 lipid panel, serum [address] (Lab), [address] [place] [address], [phone], 3 08:00:00 TSH, serum, reflex free T4 [address] (Lab), [address] [place] [address], [phone], 3 08:00:00 HbA1c (hemoglobi n A1c), blood [address] (Lab), [address] [place] [address], [phone], 3 07:59:59 CMP, serum or plasma [address] (Lab), [address] [address], [place], [address], 3 07:59:59 CBC w/ auto diff [address] (Lab), [facility] [address], [address], 3 07:59:59 Referral None recorded. Procedures None recorded. Surgeries None recorded. Imaging MAMMO, screening, digital, bilateral 2022 023 [email or web address] [address] [facility], [address], [address] [address], [place], [address], 3 09:04:09 Medication Orders None recorded. Patient TargetsNo targets recorded. Patient Instructions Encounter Date Encounter Id Patient Instructions Last Modified By Organization Details Last Modified Time 09/02/2023 [id number] Fu annually afte r 09/02/24 for wellness. 09/02/23 pt aware of Rigoberto departure. [email or web address] Not available 09/02/2023 16:26:11 Reason for Referral None Reported. Results Created Date Observation Date Name Description Value Unit Range Abnormal Flag Note LastModifiedBy Organization Detail LastModifiedTime 09/02/2009/02/2023 rapid strep group A, throa t STREP A negati ve Not Available [address], [place], [address], 09/02/2023 15:44:26 04/02/20 21 04/02/2021 XR, chest , 2 view No observ ation record ed. [id number] [facility] (Imaging) [address] [place] [address], [phone], 11/18/2022 08:30:58 11/04/19 22 11/04/2021 XR, knee, 3 view No observ ation record ed. MIGRATION.[id number] [address], [place], [address], 11/18/2022 08:30:58 01/06/20 22 01/05/2022 MRI, lumba r spine , w/o contr ast No observ ation record ed. MIGRATION.[id number] [place] [address], [place], [address], 11/18/2022 08:30:58 01/06/20 22 01/05/2022 MRI, cervi david spine , w/o contr ast No observ ation record ed. MIGRATION.[id number] [place] [address], [place], [address], 11/18/2022 08:30:58 01/06/20 22 01/05/2022 MRI, thora cic spine , w/o contr ast No observ ation record ed. MIGRATION.[address] [place] [address], [place], [address], 11/18/2022 08:30:58 03/09/20 22 03/09/2022 MAMMO , scree lorena, bilat eral No observ ation record ed. MIGRATION.[address] [place] [address], [address], 11/18/2022 08:30:58 04/09/20 22 04/09/2022 MAMMO , diagn ostic , bilat eral No observ ation record ed. MIGRATION.[address] [place] [address], [place], [address], 11/18/2022 08:30:58 08/06/20 22 08/05/2022 bone densi ty No observ ation record ed. MIGRATION.[address] [place] [address], [address], 11/18/2022 08:30:58 08/26/20 22 08/05/2022 bone densi ty No observ ation record ed. MIGRATION.[address] [place] [address] ([facility]) [address] [place] [address], [address], 11/18/2022 08:30:58 03/22/20 23 03/22/2023 XR, chest No observ ation record ed. [email or web address] [facility] [address], [place], [address], 03/23/2023 12:55:53 Result Notes None recorded. Problems Name Problem SNOMED Code Status Onset Date Resolution Date Notes Provider Name and Address Organization Details Recorded Time Abdominal bloating 752022496 Active Not Available [facility] 3 08:24:25 Anxiety state 969131017 Active Not Available [facility] 3 08:24:25 Lumbar sprain 597749105 Active Not Available [facility] 3 08:24:25 Abdominal pain 57424624 Active Not Available [facility] 3 08:24:25 Herpesvir us infection 81949442 Active Not Available [facility] 3 08:24:25 Gastroeso phageal reflux disease 847615649 Active Not Available [facility] 3 08:24:25 Chronic constipat ion 953265614 Active Not Available [facility] 3 08:24:25 Weight increased 349221597 Active Not Available [facility] 3 08:24:26 Thoracic back pain 574492919 Active Not Available [facility] 3 08:24:26 Pain of shoulder region 38648689 Active Not Available [facility] 3 08:24:26 Anxiety 05064561 Active Not Available [facility] 3 08:24:26 Shooting pain 86559937 Active Not Available [facility] 3 08:24:27 Upper respirato ry infection 36480089 Active Not Available [facility] 3 08:24:27 Urinary tract infectiou s disease 01983883 Active Not Available [facility] 3 08:24:27 Neck pain 62124354 Active Not Available [facility] 3 08:24:27 Fatigue 50562393 Active Not Available [facility] 3 08:24:27 Low back pain 294361842 Active 2017 Not Available [facility] 3 08:24:26 Basal cell carcinoma of skin 022030647 Active 2018 collarbone Not Available [facility] 3 08:24:26 Herpes labialis 8139476 Active 2020 Not Available [facility] 3 08:24:25 Lumbar spondylos is 041292344 Active 2021 Not Available [facility] 3 08:24:25 Cervical spondylos is 308270763 Active 2021 Not Available [facility] 3 08:24:26 Thoracic spondylos is 329627356 Active 2021 Not Available [facility] 3 08:24:26 Pharyngit is 554863997 Active 2022 Ernestina Garcia, AUTOMOTIVE SERVICE WRITER [address] [facility], [facility] [address], [place], [address] , [facility] Rebelle Bridal [facility] 3 15:44:15 Problem Notes None recorded. Procedures Surgical History Date Name Laterality Status Provider Name and Address Organization Details Recorded Time 08/05/20 22 Most Recent Bone Density completed Not Available [facility] 11/18/2022 08:19:30 09/20/19 14 fallopian tube excision completed Not Available [facility] 11/18/2022 08:19:31 09/20/19 03 cholecystectomy completed Not Available [facility] 11/18/2022 08:19:31 excision of lymph node completed Not Available [facility] 11/18/2022 08:19:31 Imaging Results None recorded. Procedure Notes None recorded. Medical Equipment None [...] Soluspan 6 mg/mL suspension for injection active nd#: [id number] 0720- 01 Not Available Not Available [...] Depo-Medrol 20 mg/mL suspension for injection active ndc#: [id number] 0280- 02 Not Available Not Available [...] Heart rate Body temperature Body weight Systolic And Diastolic Provider Name and Address Organization Details Last Updated DateTime 2 26.7 kg/m2 172.09 cm 98 % 98 % 76 /min 97.9 [degF] 03731.0 7 g 102/76 mm[Hg] Not Available [facility] 3 08:23:39 Date Recorded Body mass index (BMI) Body height Oxygen saturation Oxygen saturation in Arterial blood by Pulse oximetry Heart rate Body temperature Body weight Systolic And Diastolic Provider Name and Address Organization Details Last Updated DateTime 1 27 kg/m2 172.09 cm 97 % 97 % 75 /min 97.5 [degF] 43741.2 6 g 112/66 mm[Hg] Not Available [facility] 3 08:23:39 Date Recorded Body weight Body mass index (BMI) Body height Body temperature Heart rate Respiratory rate Oxygen saturation Oxygen saturation in Arterial blood by Pulse oximetry Pain severity - 0-10 verbal numeric rating [Score] - Reported Systolic And Diastolic Provider Name and Address Organization Details Last Updated DateTime 3 35204.2 3 g 27.1 kg/m2 170.18 cm 96.5 [degF] 78 /min 20 /min 97 % 97 % 0 118/76 mm[Hg] Ernestina Rowan RN [place] [employer] 3 15:20:47 Social History Question Answer Notes LastModified by Organizat ion Details LastModified Time Tobacco Smoking Status Never Smoker Not Available [facility] 11/18/2022 08:19:25 Do You Have An Advance Directive? No [id number] Information not available 11/18/2022 Is Blood Transfusion Acceptable In An Emergency? Yes Information not available 09/02/2023 What Is Your Level Of Caffeine Consumption? Moderate MIGRATION.22110 31089 Information not available 11/18/2022 What Is Your Code Status? Full Code replaced by [facility] [email or web address] Information not available 09/02/2023 In The 14 Days Before Symptom Onset, Have You Had Close Contact With A Laboratory-confir med COVID-19 While That Case Was Ill? No MIGRATION.[id number] 12346 Information not available 11/18/2022 In The 14 Days Before Symptom Onset, Have You Had Close Contact With A Person Who Is Under Investigation For COVID-19 While That Person Was Ill? No MIGRATION.12213 36878 Information not available 11/18/2022 What Type Of Diet Are You Following? REGULAR MIGRATION.72725 80682 Information not available 11/18/2022 Have There Been Any Changes To Your Family Or Social Situation? No MIGRATION.48490 52644 Information not available 11/18/2022 Do You Use Insect Repellent Routinely? Yes MIGRATION.16049 25522 Information not available 11/18/2022 Where Do You Live? [place] MIGRATION.20918 34351 Information not available 11/18/2022 Do You Have A Medical Power Of Quantitative Research Analyst? No MIGRATION.51138 96434 Information not available 11/18/2022 What Was The Date Of Your Most Recent Tobacco Screening? 04/12/2019 MIGRATION.16754 30948 Information not available 11/18/2022 Do You Have Any Pets? Yes MIGRATION.55814 51184 Information not available 11/18/2022 What Is Your Relationship Status? Information not available 09/02/2023 Do You Use Your Seat Belt Or Car Seat Routinely? Yes MIGRATION.18968 75811 Information not available 11/18/2022 Do You Have Smoke And Carbon Monoxide Detectors In Your Home? Yes MIGRATION.69796 78016 Information not available 11/18/2022 Are You Passively Exposed To Smoke? No MIGRATION.26231 41103 Information not available 11/18/2022 Are There Any Smokers In Your House? No MIGRATION.27979 91699 Information not available 11/18/2022 Do You Participate In Social Media? Yes MIGRATION.56670 43166 Information not available 11/18/2022 Do You Use Sunscreen Routinely? Yes MIGRATION.70677 47028 Information not available 11/18/2022 Have You Recently Traveled Abroad? No MIGRATION.42829 38978 Information not available 11/18/2022 Do You Have Any Dietary Restrictions? No MIGRATION.84089 65135 Information not available 11/18/2022 Sex: Female Functional Status Question Answer Note LastModified by Organizat ion Details LastModified Time Do you use any illicit or recreational drugs? No MIGRATION.168352 7917 Information not available 11/18/2022 What is your level of alcohol consumption? 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 Moderate MIGRATION.952750 8748 Information not available 11/18/2022 Mental Status Question Answer Note LastModified by Organization D etails LastModified Time Do you feel stressed (tense, restless, nervous, or anxious, or unable to sleep at night)? [id number] Information not available 09/02/2023 Family History Relationship Description Onset Age of this Age Resolved Age Notes LastModified by Organization Details LastModified Time Mother Malignant neoplasm of lung MIGRATION.950 [id number] Not available 11/18/2022 08:19:34 Mother Malignant neoplasm of vagina MIGRATION.539 [id number] Not available 11/18/2022 08:19:34 Paternal Grandfather Myocardial infarction MIGRATION.044 [id number] Not available 11/18/2022 08:19:34 Father Malignant neoplasm of prostate MIGRATION.478 [id number] Not available 11/18/2022 08:19:34 Father Cardiopulmon maldonado bypass operation MIGRATION.740 [id number] Not available 11/18/2022 08:19:34 Father Primary malignant neoplasm of urethra MIGRATION.277 [id number] Not available 11/18/2022 08:19:34 Father Malignant neoplasm of urinary bladder MIGRATION.265 [id number] Not available 11/18/2022 08:19:34 Father Malignant neoplasm of liver MIGRATION.825 [id number] Not available 11/18/2022 08:19:34 Father Malignant neoplasm of kidney MIGRATION.164 [id number] Not available 11/18/2022 08:19:34 Father Malignant neoplasm of bone MIGRATION.199 [id number] Not available 11/18/2022 08:19:34 Maternal Grandmother Malignant neoplasm of lung MIGRATION.802 [id number] Not available 11/18/2022 08:19:35 Medical History Condition [...] Time influenza, unspecified formulation 3 completed Ernestina Garcia, FACUNDO [address] [facility], [facility] [address], [place], [address], [facility] 09/02/2023 15:45:30 Influenza, split virus, trivalent, preservative 6 completed Not Available [employer] 11/18/2022 08:30:44 Influenza, split virus, trivalent, preservative 5 completed Not Available [facility] 11/18/2022 08:30:44 Influenza, split virus, trivalent, preservative 3 completed Not Available [facility] 11/18/2022 08:30:44 Tdap 9 completed Not Available [facility] 11/18/2022 08:30:44 Past Encounters Encounter ID Performer Location Encounter Start Date Encounter Closed Date Diagnosis/Indication Diagnosis SNOMED-CT Code Diagnosis ICD10 Code Diagnosis IMO Codes Diagnosis Note [id number] Amrit Craig MD [address] [address] 03/25/2021 00:00:00 03/25/2021 16:36:49 [id number] Amrit Craig MD [address] [address] 08/19/2021 00:00:00 08/19/2021 15:49:04 [id number] Amrit Craig MD [address] [address] 12/24/2021 00:00:00 12/24/2021 16:14:25 [id number] Ernestina Garcia NP [address] [address] 05/05/2022 00:00:00 05/05/2022 15:40:31 [id number] Ernestina Garcia NP [address] [address] 09/02/2023 14:46:07 09/02/2023 16:27:42 Screening for malignant neoplasm of breast 510605612 Z12.39 Mammogram ordered 09/02/23. Pharyngitis 173846330 J0 2.9 rss negative Anemia screening 6062152 07 Z13.0 Diabetes m ellitus screening 243656318 Z13.1 Thyroid di sorder screening 630440579 Z13.29 Hyperlipid emia screening 472745348 Z13.220 Adult heal th examination 543149603 Z00.00 Encouraged well balanced meals, active lifestyle, and routine vision and dental appts. Health Concerns Section Related Observation LastModified by Organization Detai ls LastModified Time None Recorded Concern Status LastModified by Organization Details LastModified Time None Recorded Advance Directives Directive N: Payers Insurance Date Sequence Insurance Name Policy Number Policy Hurley Covered Member ID Hurley Member ID Guarantor Name 10/04/2023 1 [facility] [id number] Shruthi Mcguire [id number] Shruthi Mcguire Notes Date Note Type Note Provider Name and Address Organization Details Recorded Time 09/02/2023 text/html Here for wellness. Having multiple periods monthly. 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 Sore throat, red. No fever or chills. 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 Overdue for labs.Due for mammogram.Seeing Louise Carlos for derm- hx melanoma Ernestina Garcia, FACUNDO [address] [facility], [facility] [address], [place], [address], [facility] [employer] 09/02/2023 16:27:01 OBGyn Episode No OBEpisode recorded.
--- OUTSIDE RECORDS SUMMARY | 2025-07-04 00:54 | XMS_ITS | Clinical Summary ---
Author Organization [facility] Address [address] [place] [address] Care Team Providers Care Heating Repair Technician Name Role Phone Joann Franklin [facility] Primary Care Provider + Social History [...] Vaccine ( - 2023-2 5 season) 2025 Influenza Adult (#1) 2025 Meningococcal B Vaccine Aged Out No l onger eligible based on patient's age to complete this topic Meningococcal Vaccine Aged Out No char michelle eligible based on patient's age to complete this topic RSV Immunizations Under 20 Months Aged Out No longer eligible based on patient's age to complete this topic Care Teams Heating Repair Technician Relationship Specialty Start Date End Date Joann Franklin [facility] [address] [place] [id number] PCP - General NURSE PRACTITIONER 01/07/22
--- NOTE | 2025-07-04 09:03 | PM.IMHP ---
H&P: HPI History of Present Illness Date/Time: 07/04/25 09:03 Chief Complaint: Pain and bleeding Narrative: 49 yo with a long history of endometriosis-related pain. She has biopsy-proven endometriosis and has had several laparoscopies. Currently she complains of heavy, painful menses. During her heavy flow days, she will frequently overflow her protection onto her clothing. An ultrasound exam was essentially unremarkable. She desires surgical management of her problem. Specifically, I have offered her a robotic assisted total vaginal hysterectomy. We plan to leave the ovaries in situ. She has had bilateral salpingectomies in the past. 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 Overweight (BMI 25.0-29.9) Basal cell carcinoma of skin left collarbone Melanoma in situ September 2017 Endometriosis determined by laparoscopy Surgical History Surgical History History of suburethral sling procedure H/O bilateral salpingectomy History of laparoscopy History of cholecystectomy Family History Family History Father Heart disease Grandparent Cancer Social History Social History Smoking packs per day: 0 Smoking cigarettes per day: 0.0 Years smoked: 0 Smoking pack-years: 0.00 Smoking status: Never smoker Second hand tobacco smoke exposure: Yes Alcohol intake: current Drinks per week: 6 Alcohol use details: occasionally Substance use: never Substance use type: does not use Do You Feel Safe in your Home?: Yes Lack of Transportation: No Lack of Food: Never True Current Housing: I Have Housing Concerned About Future Housing: No Difficulty Paying Gas/Electric Bills: Decline to Answer Difficulty Paying for Meds: Decline to Answer Currently Unemployed: Decline to Answer Education: Associate Degree Difficulty w/ Childcare or Family Care: No Living arrangements: alone Occupation/Education: occupation 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[employer]; 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 Gender identity (if verbalized by the patient): Female Spiritual care concerns: No Meds Home Medications and Allergies Home Medications ?Medication ?Instructions ?Recorded ?Confirmed ?Type valacyclovir 1 gram tablet 1,000 mg PO Q12H PRN cold sores 05/17/25 06/08/25 Rx #90 tabs acetaminophen 500 mg tablet 1,000 mg PO Q6H PRN pain 06/08/25 06/08/25 History (Acetaminophen Extra Strength) evening primrose oil 500 mg capsule 500 mg PO DAILY 06/08/25 06/08/25 History ibuprofen 200 mg tablet (Advil) 400 mg PO Q6H PAIN 06/08/25 06/08/25 History magnesium glycinate 100 mg (as 100 mg PO DAILY 06/08/25 06/08/25 History glycinate) tablet (Mag Glycinate) omega-3 fatty acids 1,000 mg PO DAILY 06/08/25 06/08/25 History yuqs-fizn-ylwv-ox fajf-gvp-eta 60 1 cap PO DAILY 06/08/25 06/08/25 History mg-100 mg-10 mg capsule vitamin B complex 1 cap PO DAILY 06/08/25 06/08/25 History vitamin D3 1,250 mcg (50,000 cap PO 06/08/25 History unit)-vitamin K2 200 mcg capsule Allergies Allergy/AdvReac Type Severity Reaction Status Date / Time No Known Allergies Allergy Verified 06/18/25 13:38 Exam Const: Orientation/consciousness: patient oriented x3 Other: Well-developed, well-nourished female in no acute distress. Neck: Thyroid: thyroid normal Lymphatic: no lymphadenopathy noted (in neck, axilla or inguinal nodes) Resp: Effort & Inspection: normal respiratory effort Auscultation: clear to auscultation bilaterally Cardio: Rate: regular rate Rhythm: regular rhythm Heart sounds: S1 normal heart sound present and S2 normal heart sound present GI: Other: ABD: Soft, nontender, nondistended. No guarding or rebound tenderness. No hepatosplenomegaly. : General: Yes no CVA tenderness Other: External genitalia: normal female hair distribution, without lesion. Urethral meatus: no lesion, non prolapsed. Bladder: no mass, nontender Vagina: well-estrogenized, without lesion or discharge. No cystocele or rectocele. Cervix: no lesion or discharge. Uterus: small, anteverted, freely mobile, nontender Adnexa: no mass or tenderness. Anus/perineum: no lesions, nontender Back/Spine/Pelvis: Back: no CVA tenderness Skin: General skin exam: normal color and no rashes or lesions noted Neuro: General: patient oriented x3 Extrem: Other: Extremities: nontender with no edema Psych: Mental Status: mental status grossly normal Affect: normal affect Assessment and Plan Assessment and plan (1) Endometriosis determined by laparoscopy: Code(s): N80.9 - Endometriosis, unspecified Status: Acute Assessment and Plan: A: Pelvic pain in the setting of endometriosis, dysmenorrhea and menorrhagia. P: We reviewed medical as well surgical approaches to her problem. She desires definitive management with hysterectomy. Specifically, I offered her a robotic assisted total vaginal hysterectomy. Fallopian tubes are already surgically absent. We plan to leave the ovaries in-situ, so long as they appear normal. She understands risks of surgery to include risks of anesthesia, risks of pain, infection, bleeding, blood products, thromboembolic phenomena and damage to adjacent structures such as bowel, bladder, ureters, blood vessels and nerves. She understands that hysterectomy will render her permanently sterile. She understands all these risks and elects to proceed with surgery. (2) Pelvic pain: Code(s): R10.2 - Pelvic and perineal pain Status: Acute (3) Dysmenorrhea: Code(s): N94.6 - Dysmenorrhea, unspecified Status: Acute (4) Menorrhagia: Qualifiers: Menorrhagia type: premenopausal Qualified Code(s): N92.4 - Excessive bleeding in the premenopausal period Code(s): N92.0 - Excessive and frequent menstruation with regular cycle Status: Acute
[2025-07-04] MEDS: LACTATED RINGERS 1,000 ML 30 ML IV CONT ×3 (11:00→14:20)
[2025-07-04] MEDS: ACETAMINOPHEN 500 MG TABLET 1000 MG PO ×2 (11:02→17:57)
[2025-07-04] MEDS: KETOROLAC 15 MG/ML VIAL (*BKC) IV PUSH ×2 (11:02→13:30)
[2025-07-04] MEDS: SCOPOLAMINE 1 MG PATCH 1 PATCH TRANSDERM (11:30)
--- NOTE | 2025-07-04 11:58 | WPDHPUPDATE1 ---
History and Physical Update Update Date/Time: 07/04/25 11:58 History and Physical has been reviewed, including an updated exam of the patient. There are NO changes in the patient's condition. Risks, benefits, and alternatives have been discussed and questions answered. Patient agrees to proceed with procedure.
--- NOTE | 2025-07-04 12:05 | WPDANESEPPF ---
Anes - Initial Pre Proc Eval Procedure: Operation Date: 07/04/25 12:00 Proposed Procedures p Robotic Total Vaginal Hysterectomy with Bilateral Salpingectomy with Possible Salpingo-oophorectomy - Randy Hernández MD Date/Time: 07/04/25 12:05 Surgeon: Randy Hernández MD Pre Op Diagnosis: dysmenorrhea, menorrhagia, endometriosis Patient Data Age: 50 Gender: F Height: 1.7 m Weight: 78.5 kg Last Vital Signs Temp 97.9 F 07/04/25 10:57 Pulse 92 07/04/25 10:57 Resp 16 07/04/25 10:57 BP 124/70 07/04/25 10:57 Pulse Ox 100 07/04/25 10:57 O2 Del Method Room Air 07/04/25 10:57 Allergies Allergy/AdvReac Type Severity Reaction Status Date / Time No Known Allergies Allergy Verified 07/04/25 10:53 Home Medications ?Medication ?Instructions ?Recorded ?Confirmed ?Type valacyclovir 1 gram tablet 1,000 mg PO Q12H PRN cold sores 05/17/25 06/08/25 Rx #90 tabs acetaminophen 500 mg tablet 1,000 mg PO Q6H PRN pain 06/08/25 06/08/25 History (Acetaminophen Extra Strength) evening primrose oil 500 mg capsule 500 mg PO DAILY 06/08/25 07/04/25 History ibuprofen 200 mg tablet (Advil) 400 mg PO Q6H PAIN 06/08/25 07/04/25 History magnesium glycinate 100 mg (as 100 mg PO DAILY 06/08/25 07/04/25 History glycinate) tablet (Mag Glycinate) omega-3 fatty acids 1,000 mg PO DAILY 06/08/25 07/04/25 History qtio-wxxk-ruak-ox dvux-ryh-wen 60 1 cap PO DAILY 06/08/25 07/04/25 History mg-100 mg-10 mg capsule vitamin B complex 1 cap PO DAILY 06/08/25 07/04/25 History vitamin D3 1,250 mcg (50,000 cap PO 06/08/25 History unit)-vitamin K2 200 mcg capsule Patient hx anesthesia problems: post op nausea/vomiting Family hx anesthesia problems: none Results Review: All pre-operative results and documents have been reviewed as part of the pre-operative evaluation. 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 Overweight (BMI 25.0-29.9) Basal cell carcinoma of skin left collarbone Melanoma in situ September 2017 Endometriosis determined by laparoscopy Surgical History Surgical History History of suburethral sling procedure H/O bilateral salpingectomy History of laparoscopy History of cholecystectomy Family History Family History Father Heart disease Grandparent Cancer Social History Social History Smoking packs per day: 0 Smoking cigarettes per day: 0.0 Years smoked: 0 Smoking pack-years: 0.00 Smoking status: Never smoker Second hand tobacco smoke exposure: Yes Alcohol intake: current Drinks per week: 6 Alcohol use details: occasionally Substance use: never Substance use type: does not use Do You Feel Safe in your Home?: Yes Lack of Transportation: No Lack of Food: Never True Current Housing: I Have Housing Concerned About Future Housing: No Difficulty Paying Gas/Electric Bills: Decline to Answer Difficulty Paying for Meds: Decline to Answer Currently Unemployed: Decline to Answer Education: Associate Degree Difficulty w/ Childcare or Family Care: No Living arrangements: alone Occupation/Education: occupation 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[employer]; 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 Informed Consent: The patient's anesthetic plan and its attendant risks and benefits were discussed with the patient/family/POA. Questions were solicited and answers provided to the satisfaction of the patient/family/POA.
[2025-07-04] MEDS: ceFAZolin 2 GM in SODIUM CHLORIDE 0.9% IV 50 ML 100 ML IVPB (12:13)
--- NOTE | 2025-07-04 13:24 | S_PTH ---
PATIENT: Shruthi Mcguire LOC: [facility] U#:[id number] AGE/SX: 50/F ROOM: RE07/04/[address]: Randy Hernández MD : 1975 BED: DIS: 07/05/2025 SPEC #: [id number] RECD: 07/04/25 13:33 STATUS: TONI REQ #: [id number] MAY: 07/04/25 13:[address]: Randy Hernández DEPT: [facility] Surgical RECD BY: Emani Fischer ENTERED: 07/04/25 13:33 SP TYPE: Surgical OTHR DR: Joann Franklin APRN Tissues: A - Uterus Procedures: Hematoxylin and Eosin Stain Gross and Microscopic Level 5
--- NOTE | 2025-07-04 13:25 | P.OP_ITS ---
Procedure Note - Detailed Date of Procedure 07/04/25 Pre-op Diagnosis Menometrorrhagia Pelvic pain Dysmenorrhea Endometriosis Post-op Diagnosis Same Procedure Performed Robotic assisted total vaginal hysterectomy. Surgeon Randy Hernández MD Anesthesia General Findings Fallopian tubes surgically absent. Unremarkable uterus, bilateral ovaries, anterior and posterior cul de sac, bilateral round and uterosacral ligaments. Description of Procedure The patient was taken to the operating room where general endotracheal anesthesia was administered. She was prepared and draped in the usual sterile fashion in the dorsal lithotomy position. The bladder was drained with Steele catheter. The cervix was visualized and the anterior lip was grasped using a single-tooth tenaculum. The cervix was gently dilated using Hegar dilators. The KIRSTEN 2 uterine manipulator was then placed and the tenaculum was removed. Gloves were changed and attention was turned to the abdomen. A supraumbilical skin incision was made with the scalpel. The Veress needle was advanced and pneumoperitoneum was administered using carbon dioxide gas. The bladeless trocar was then advanced. Intraperitoneal placement was confirmed using the laparoscope. Lateral ports and an geological survey field assistant port were all placed using bladeless trocars under direct laparoscopic visualization. She was placed in Trendelenburg position and the patient cart was docked. I assumed the console. The ureters were visualized bilaterally. The round ligament on the right was divided. The uteroovarian ligament was divided. The broad ligament was divided, skeletonizing the uterine artery on the right. The bladder was reflected away. The left side was similarly dissected. Colpotomy was performed circumferentially. The specimen was removed and passed off to be sent to pathology. The vaginal cuff was reapproximated using 0 Vicryl in interrupted [id number]-[id number]-[id number] fashion. The pelvis was irrigated copiously using warmed normal saline. Rigorous hemostasis was assured. HemaDerm was applied to the vaginal cuff. The pedicles were inspected once again. The ports were then withdrawn and the gas was allowed to escape. The skin incisions were reapproximated using 4 0 Monocryl in interrupted subcuticular fashion. Dermaflex was applied externally. Sponge, lap, needle and instrument counts were correct. The patient was awakened and taken to the recovery room in stable condition. I was present and scrubbed through the entire procedure. Implants None Estimated Blood Loss 120 Drains Yes (Steele) Packing No Pathology Yes (Uterus and cervix) Complications None Condition Stable Disposition PACU [facility] Billing Surgery - Charge Forward: Surgery Billing
--- NOTE | 2025-07-04 13:28 | PM.DS ---
DS: Admitting Diagnosis Discharge Date 07/05/25 Admitting Diagnosis Menorrhagia Endometriosis Pelvic pain Dysmenorrhea DS: Discharge Diagnosis Discharge Diagnosis (1) Endometriosis determined by laparoscopy: Code(s): N80.9 - Endometriosis, unspecified Status: Acute (2) Pelvic pain: Code(s): R10.2 - Pelvic and perineal pain Status: Acute (3) Dysmenorrhea: Code(s): N94.6 - Dysmenorrhea, unspecified Status: Acute (4) Menorrhagia: Qualifiers: Menorrhagia type: premenopausal Qualified Code(s): N92.4 - Excessive bleeding in the premenopausal period Code(s): N92.0 - Excessive and frequent menstruation with regular cycle Status: Acute DS: Summary Hospital Course Hospital Course: She underwent robotic assisted TVH. She did well postoperatively and was able to go home on POD1. Time Spent with Patient Time attestation: Total time spent providing and/or coordinating discharge services: DS: Data Data Completed and Pending Pending studies at discharge: Pending at discharge 07/04/25 13:24 Surgical [PTH] Routine Discharge Plan Discharge Patient Disposition: Home Discharge Instructions: Nothing in the vagina for 6 weeks. Call or return if temperature above 100.4? F, increased abdominal pain, increased vaginal bleeding or any new problems. Remove the Scopolamine patch that was placed behind your ear in 72 hours or less. Wash your hands after touching. Patient Language: Maori Stand Alone Forms: General Discharge Instructions Follow-up/Referrals: Randy Hernández MD [Physician, OCCUPATIONAL HEALTH PROFESSIONAL] - 2 Weeks Discharge Medications: New oxycodone-acetaminophen [Endocet] 5-325 mg tablet 1 - 2 tablet PO Q6H PRN (Reason: pain) Qty: 30 0RF Continued omega-3 fatty acids Capsule 1,000 mg PO DAILY vitamin B complex Capsule 1 cap PO DAILY vitamin D3-vitamin K2 1,250-200 mcg capsule PO evening primrose oil 500 mg capsule 500 mg PO DAILY Rx Instructions: give with meal/snack Mag Glycinate 100 mg tablet 100 mg PO DAILY qewz-nrhc-rshd-ox zwih-vhh-xtp 60-100-10 mg capsule 1 cap PO DAILY ibuprofen [Advil] 200 mg tablet 400 mg PO Q6H acetaminophen [Acetaminophen Extra Strength] 500 mg tablet 1,000 mg PO Q6H PRN (Reason: pain) valacyclovir 1 gram tablet 1,000 mg PO Q12H PRN (Reason: cold sores ) Qty: 90 0RF Rx Instructions: 1 gm po bid for 2 days prn cold sores.
[2025-07-04] MEDS: fentaNYL CITRATE INJ (*CRX) 100 MCG/2 ML VIAL 25 MCG IV PUSH ×8 (13:49→14:12)
[2025-07-04] MEDS: HYDROmorphone HCL INJ (*CRX) 1 MG/ML SYR 0.5 MG IV PUSH ×3 (14:21→14:57)
--- NOTE | 2025-07-04 15:18 | PC.NURSE ---
This patient, Shruthi Mcguire, was received from [ ] on 07/04/25 at 1804. Patient/family oriented to unit policies and routines
--- NOTE | 2025-07-04 15:18 | PC.NURSE ---
This patient, Shruthi Mcguire, was received from PACU on 07/04/25 at 1518. Patient/family oriented to unit policies and routines.
[2025-07-04] MEDS: DEXTROSE 5%/0.45% SOD CHL 1,000 ML 125 ML IV CONT (15:50)
[2025-07-04] MEDS: oxyCODONE HCL (*CRX) 5 MG TAB IR 10 MG PO (15:51)
[2025-07-04] MEDS: KETOROLAC 30 MG/ML VIAL (*BKC) IV PUSH (17:57)
[2025-07-04] MEDS: SIMETHICONE 80 MG TAB.CHEW PO (17:57)
[2025-07-04] MEDS: DOCUSATE SODIUM 100 MG CAPSULE PO (17:57)
[2025-07-04] MEDS: ENOXAPARIN 40 MG/0.4 ML SYRINGE SUB-Q (20:00)
[2025-07-04] MEDS: oxyCODONE HCL (*CRX) 5 MG TAB IR PO (20:00)
[2025-07-05 00:15] VITALS: BP 98/65; PULSE 85; RESP 18; TEMP 36.4; O2SAT 99
[2025-07-05] MEDS: ACETAMINOPHEN 500 MG TABLET 1000 MG PO ×3 (00:17→12:21)
[2025-07-05] MEDS: KETOROLAC 30 MG/ML VIAL (*BKC) IV PUSH ×2 (00:18→06:39)
[2025-07-05 04:02] VITALS: BP 96/54; PULSE 81; RESP 16; TEMP 36.5; O2SAT 98
[2025-07-05] MEDS: oxyCODONE HCL (*CRX) 5 MG TAB IR PO ×2 (04:12→09:12)
[2025-07-05 04:55] LABS: Hematocrit 37.8 % (37.0-47.0); Hemoglobin 12.9 g/dL (12.0-15.0); Immature Granulocyte Percent A 0.4 % (0-0.5); Lymphocytes Absolute Auto 1.31 K/mm3 (0.9-3.2); Mean Corpuscular HGB Conc 34.1 g/dl (32-36); Mean Corpuscular Hemoglobin 30.6 pg (26-34); Mean Corpuscular Volume 89.8 fl (80-100); Nucleated Red Blood Cells Absolute Auto 0.000 K/mm3 (0.0-0.012); Nucleated Red Blood Cells Perc 0.0 % (0.0-0.2); Platelet Count Result 257 k/mm3 (150-375); Red Blood Count 4.21 M/mm3 (4.2-5.4); White Blood Count 12.3 K/mm3 (4.5-10.0)
[2025-07-05 08:00] VITALS: BP 84/47; PULSE 72; RESP 16; TEMP 37.2; O2SAT 96
--- NOTE | 2025-07-05 09:08 | P.PNOB_ITS ---
ASSISTANT DISTRIBUTION MANAGER - A/P Assessment and plan (1) Endometriosis determined by laparoscopy: Code(s): N80.9 - Endometriosis, unspecified Status: Acute Assessment and Plan: A: POD#1, doing well. P: Home to f/u 2 weeks. (2) Pelvic pain: Code(s): R10.2 - Pelvic and perineal pain Status: Acute (3) Dysmenorrhea: Code(s): N94.6 - Dysmenorrhea, unspecified Status: Acute (4) Menorrhagia: Qualifiers: Menorrhagia type: premenopausal Qualified Code(s): N92.4 - Excessive bleeding in the premenopausal period Code(s): N92.0 - Excessive and frequent menstruation with regular cycle Status: Acute Postoperative Procedures: Procedures Operation Date: 07/04/25 12:00 Actual Procedure Side Surgeon p Robotic Total Vaginal Hysterectomy Bilateral Randy Hernández MD Time Spent With Patient Time: Total time spent is greater than 50% in coordination of care (as documented) at patient's floor/unit and/or counseling patient: Time with patient: less than 15 minutes ASSISTANT DISTRIBUTION MANAGER- PN:Subj Post-Op Subjective Date/time seen: 07/05/25 09:08 Interval history: Pain OK. Tolerating diet. Voiding. Would like to go home. Exam 2 Narrative: AVSS I/O OK ABD soft, nontender. Incisions c/d/i. EXT nontender ASSISTANT DISTRIBUTION MANAGER - PN: Obj Data Vital Signs Vital Signs: Vital Signs - 24 hr 07/04/25 10:57 07/04/25 13:43 07/04/25 13:55 Temperature 97.9 F 97.0 F L Pulse Rate 92 71 66 Respiratory Rate 16 12 12 Blood Pressure 124/70 128/77 118/80 Pulse Oximetry 100 100 100 Oxygen Delivery Room Air Simple Face Mask Simple Face Mask Oxygen Flow Rate 6 6 07/04/25 14:10 07/04/25 14:25 07/04/25 14:30 Temperature Pulse Rate 84 66 Respiratory Rate 14 16 Blood Pressure 118/81 116/74 Pulse Oximetry 100 100 Oxygen Delivery Simple Face Mask Simple Face Mask Room Air Oxygen Flow Rate 6 6 07/04/25 14:40 07/04/25 14:55 07/04/25 15:10 Temperature 97.0 F L Pulse Rate 70 77 68 Respiratory Rate 16 16 14 Blood Pressure 114/77 116/69 117/75 Pulse Oximetry 100 100 98 Oxygen Delivery Room Air Room Air Room Air Oxygen Flow Rate 07/04/25 15:35 07/04/25 15:35 07/04/25 18:50 Temperature 97.8 F 98.1 F Pulse Rate 72 85 Respiratory Rate 16 15 Blood Pressure 127/77 115/68 Pulse Oximetry 100 98 Oxygen Delivery Room Air Oxygen Flow Rate 07/04/25 18:50 07/05/25 00:15 07/05/25 00:15 Temperature 97.5 F L Pulse Rate 85 Respiratory Rate 18 Blood Pressure 98/65 L Pulse Oximetry 99 Oxygen Delivery Room Air Room Air Oxygen Flow Rate 07/05/25 04:02 07/05/25 04:02 Temperature 97.7 F Pulse Rate 81 Respiratory Rate 16 Blood Pressure 96/54 L Pulse Oximetry 98 Oxygen Delivery Room Air Oxygen Flow Rate Intake/Output Intake/Output: Intake & Output 07/02/25 07/03/25 07/04/25 07/05/25 23:59 23:59 23:59 23:59 Intake Total 1670 1500 Output Total 1265 650 Balance 405 850 Meds/Results Medications: Active Medications Generic Name Dose Route Start Last Admin Trade Name Freq PRN Reason Stop Dose Admin Acetaminophen 1,000 mg 07/04/25 18:00 07/05/25 06:39 Acetaminophen 500 Mg Tablet PO 1,000 mg Q6HR SATISH Administration Docusate Sodium 100 mg 07/04/25 17:00 07/04/25 17:57 Docusate Sodium 100 Mg Capsule PO 100 mg BID SATISH Administration Enoxaparin Sodium 40 mg 07/04/25 21:00 07/04/25 20:00 Enoxaparin 40 Mg/0.4 Ml Syringe SUB-Q 40 mg DAILY SATISH Administration Dextrose/Sodium Chloride 1,000 mls @ 125 mls/hr 07/04/25 15:13 07/05/25 00:14 Dextrose 5% Sodium Chloride 0.45% IV CONT Infused .Q8H SATISH Infusion Ibuprofen 600 mg 07/05/25 12:00 Ibuprofen 600 Mg Tablet PO Q6HR SATISH Morphine Sulfate 4 mg 07/04/25 15:13 Morphine Sulfate (*Crx) 4 Mg/Ml Inj IV PUSH Q4H PRN Breakthrough Pain Rated 7-10 or NPO Naloxone HCl 0.1 mg 07/04/25 15:13 Naloxone Hcl 0.4 Mg/Ml Vial IV PUSH Q2M PRN Respiratory rate less than 10 Ondansetron HCl 4 mg 07/04/25 15:13 Ondansetron Inj 4 Mg/2 Ml Vial IV PUSH Q6H PRN Nausea And Vomiting Oxycodone HCl 5 mg 07/04/25 15:13 07/05/25 04:12 Oxycodone Hcl (*Crx) 5 Mg Tab Ir PO 5 mg Q4H PRN Administration Pain Rated 4-6 Oxycodone HCl 10 mg 07/04/25 15:13 07/04/25 15:51 Oxycodone Hcl (*Crx) 5 Mg Tab Ir PO 10 mg Q6H PRN Administration Pain Rated 7-10 Simethicone 80 mg 07/04/25 17:00 07/04/25 17:57 Simethicone 80 Mg Tab.Chew PO 80 mg TIDWM SATISH Administration Labs 07/05/25 04:02 Labs: Laboratory Results - last 24 hr 07/05/25 04:02 WBC 12.3 H RBC 4.21 Hgb 12.9 Hct 37.8 MCV 89.8 MCH 30.6 MCHC 34.1 RDW 12.5 Plt Count 257 MPV 9.6 Immature Gran % (Auto) 0.4 Neut % (Auto) 83.9 H Lymph % (Auto) 10.7 L [place] % (Auto) 4.6 Eos % (Auto) 0.0 Baso % (Auto) 0.4 Lymph # (Auto) 1.31 [place] # (Auto) 0.6 Eos # (Auto) 0.0 Baso # (Auto) 0.1 Abs Immat Gran (auto) 0.05 H Absolute Neuts (auto) 10.3 H Absolute Nucleated RBC 0.000 Nucleated RBC % 0.0
[2025-07-05] MEDS: DOCUSATE SODIUM 100 MG CAPSULE PO (09:14)
[2025-07-05] MEDS: ENOXAPARIN 40 MG/0.4 ML SYRINGE SUB-Q (09:15)
[2025-07-05] MEDS: SIMETHICONE 80 MG TAB.CHEW PO ×2 (09:15→12:21)
[2025-07-05 09:40] VITALS: PULSE 72; RESP 16; O2SAT 96
--- NOTE | 2025-07-05 10:55 | P.PNAN_ITS ---
Anes - Prog Note Post-Op Date/Time: 07/05/25 10:55 Cardiovascular status: normal Respiratory status: normal Airway patency: baseline Mental status: baseline Post-Op hydration status: normal Vital Signs: Last Vital Signs Temp 37.2 C 07/05/25 08:00 Pulse 72 07/05/25 08:00 Resp 16 07/05/25 08:00 BP 84/47 L 07/05/25 08:00 Pulse Ox 96 07/05/25 08:00 O2 Del Method Room Air 07/05/25 04:02 O2 Flow Rate 6 07/04/25 14:25 Pain Score (VAS): 10/30 I/O: Intake & Output 07/04/25 07/05/25 07/05/25 23:59 07:59 15:59 Intake Total 120 1500 Output Total 1225 650 Balance -1105 850 Laboratory Tests 07/05/25 04:02 07/05/25 04:02 WBC 12.3 H RBC 4.21 Hgb 12.9 Hct 37.8 MCV 89.8 MCH 30.6 MCHC 34.1 RDW 12.5 Plt Count 257 MPV 9.6 Immature Gran % (Auto) 0.4 Neut % (Auto) 83.9 H Lymph % (Auto) 10.7 L [place] % (Auto) 4.6 Eos % (Auto) 0.0 Baso % (Auto) 0.4 Lymph # (Auto) 1.31 [place] # (Auto) 0.6 Eos # (Auto) 0.0 Baso # (Auto) 0.1 Abs Immat Gran (auto) 0.05 H Absolute Neuts (auto) 10.3 H Absolute Nucleated RBC 0.000 Nucleated RBC % 0.0 Post-procedural complaints: none Patient Feedback: Patient satisfied with anesthetic care.
[2025-07-05 11:01] VITALS: BP 90/60
[2025-07-05] MEDS: IBUPROFEN 600 MG TABLET PO (12:21)
== END 2025-07-05 12:25 | disposition home or self-care (01) ==
LOC: ANHSURGERY 13:30 → ANHOB2 15:38
PROVIDERS: PCP Nurse Practitioner Family; Visit Provider Obstetrics & Gynecology
PROC: (CPT 58552; principal; 2025-07-04 12:00)
DX: N72 Inflammatory disease of cervix uteri (principal); N80.03 Adenomyosis of the uterus; N80.9 Endometriosis, unspecified; G89.18 Other acute postprocedural pain; K21.9 Gastro-esophageal reflux disease without esophagitis; Z79.1 Long term (current) use of non-steroidal anti-inflammatories (NSAID); Z98.890 Other specified postprocedural states; Z90.49 Acquired absence of other specified parts of digestive tract; Z85.828 Personal history of other malignant neoplasm of skin; Z85.820 Personal history of malignant melanoma of skin; Z80.9 Family history of malignant neoplasm, unspecified; Z82.49 Family history of ischemic heart disease and other diseases of the circulatory system
CPT/HCPCS: 58552; S2900; 36415; 85025; 88307; 99199; J0690; A9270; J1100; J1171; J1200; J1650; J1885; J2003; J2250; J2405; J2704; J3010; J7120